=== PATIENT | female | born 1985 | race Caucasian/White ===

== ENCOUNTER → 2017-11-19 16:35 | Outpatient (CLI) | payer OTHER, SELFPAY ==
[2017-11-19 19:38] LABS: HIV - WCH Non-Reactive (Nonreactive)
[2017-11-19 21:23] LABS: Chlamydia Trachomatis by PCR Negative (Negative); Neisserai gonorrhoeae by PCR Negative (Negative); Probe Check PASS; Sample Adequacy Control PASS; Specimen Processing Control PASS
[2017-11-21 03:56] LABS: Rapid Plasmin Reagin (RPR) NONREACTIVE (NONREACTIVE)
[2017-11-21 06:08] LABS: HEPATITIS B SURFACE AG Negative (Negative); Hepatitis A AB, Total Positive (Negative); Hepatitis A IgM Antibody Negative (Negative); Hepatitis B Core AB IgM Negative (Negative); Hepatitis B Core Ab Total Negative (Negative); Hepatitis C Ab 0.1 s/co ratio (0.0-0.9)
[2017-11-22 08:59] LABS: Hep B Surface Antibodies Non Reactive (.)
== END ==
PROVIDERS: Family Provider Family Medicine; PCP Family Medicine; Visit Provider Family Medicine
DX: Z20.2 Contact with and (suspected) exposure to infections with a predominantly sexual mode of transmission (principal)
CPT/HCPCS: 36415; 86592; 86703; 86704; 86705; 86706; 86708; 86709; 86803; 87340; 87491; 87591

== ENCOUNTER → 2018-05-07 07:16 | Outpatient (CLI) | payer OTHER, SELFPAY ==
[2018-05-07 10:22] LABS: hCG Titer Quant., Serum 47 mIU/mL (<9 non-preg)
== END ==
PROVIDERS: Family Provider Family Medicine; PCP Family Medicine; Visit Provider Family Medicine
DX: Z34.90 Encounter for supervision of normal pregnancy, unspecified, unspecified trimester (principal)
CPT/HCPCS: 36415; 84702

== ENCOUNTER → 2018-05-09 06:58 | Outpatient (CLI) | payer OTHER, SELFPAY ==
[2018-05-09 08:33] LABS: hCG Titer Quant., Serum 117 mIU/mL (<9 non-preg)
== END ==
PROVIDERS: Family Provider Family Medicine; PCP Family Medicine; Visit Provider Family Medicine
DX: Z34.90 Encounter for supervision of normal pregnancy, unspecified, unspecified trimester (principal)
CPT/HCPCS: 84702

== ENCOUNTER → 2018-05-11 08:56 | Outpatient (CLI) | payer OTHER, SELFPAY ==
[2018-05-11 10:33] LABS: hCG Titer Quant., Serum 312 mIU/mL (<9 non-preg)
[2018-05-11 10:59] LABS: Progesterone Level 16.38 ng/mL (See Comment)
== END ==
PROVIDERS: Family Provider Family Medicine; PCP Family Medicine; Visit Provider Obstetrics & Gynecology Reproductive Endocrinology
DX: Z32.00 Encounter for pregnancy test, result unknown (principal)
CPT/HCPCS: 36415; 84144; 84702

== ENCOUNTER → 2018-05-19 09:27 | Outpatient (CLI) | payer OTHER, SELFPAY ==
[2018-05-19 10:52] LABS: hCG Titer Quant., Serum 4891 mIU/mL (<9 non-preg)
[2018-05-20 08:43] LABS: Progesterone Level 26.89 ng/mL (See Comment)
== END ==
PROVIDERS: Family Provider Family Medicine; PCP Family Medicine; Visit Provider Obstetrics & Gynecology Reproductive Endocrinology
DX: Z32.01 Encounter for pregnancy test, result positive (principal)
CPT/HCPCS: 36415; 84144; 84702

== ENCOUNTER 2018-05-29 17:43 | Emergency (ER) | payer OTHER, SELFPAY ==
[2018-05-29 17:44] VITALS: BP 120/74; PULSE 86; RESP 16; TEMP 36.5; O2SAT 97; BMI 35.8
--- NOTE | 2018-05-29 18:22 | US_ITS ---
STUDY: FIRST TRIMESTER OBSTETRICAL ULTRASOUND REASON FOR EXAM: Female, 32 years old. and bleeding LMP: April 08, 2018 TECHNIQUE: Transverse and longitudinal imaging of the pelvis was obtained transvaginally using real-time ultrasound. PRIOR STUDY: None. FINDINGS: There is visualization of a single gestational sac in a normal intrauterine position. The mean sac diameter (MSD) measures 18.9 mm, indicating an estimated gestational age (EGA) of 6 weeks, 6 days. The gestational sac shape is within normal limits. There is a visualized yolk sac. The yolk sac measures 4.4 mm. The placenta is non-visualized. There is visualization of an embryonic pole. The crown-rump length (CRL) measures 9.4 mm, indicating an estimated gestational age (EGA) of 7 weeks, 0 days. There is demonstrated cardiac activity with a heart rate of 130 bpm. The estimated gestation age (EGA) by LMP is 7 weeks, 2 days. The estimated date of delivery (GURWINDER) by LMP is January 13, 2019. The estimated gestation age (EGA) by US is 7 weeks, 0 days. The estimated date of delivery (GURWINDER) by US is January 15, 2019. The uterus measures 8.1 x 4.2 x 5.6 cm. There is minimal fluid in the cervical canal. The right ovary measures 4.0 x 2.1 x 1.9 cm. There is no right ovarian cyst. There is no visualized right adnexal mass or complex lesion. The left ovary measures 3.0 x 1.3 x 2.3 cm. There is no left ovarian cyst. There is no visualized left adnexal mass or complex lesion. There is no fluid in the cul de sac. US/Transvaginal w/Preg US IMPRESSION: There is a viable intrauterine with estimated gestational age of 7 weeks 0 days by the current ultrasound. There is minimal fluid in the cervical canal. No other abnormalities are seen. Electronically Signed: Jasmina Fernando MD at 20:00 EDT Tel Direct: [phone], Service support ,
--- NOTE | 2018-05-29 18:23 | ED.VIS.GEN ---
History of Present Illness Chief Complaint: Vag Bld, Preg Informant: Patient Onset: Today Context: Sudden Onset Quality: light Location: vaginal Current Severity: gone Maximum Severity: Mild Worsened by: nothing Relieved by: nothing Associated Symptoms: nausea off and on during 1st trimester. no pain. Narrative: around 7 weeks. 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 She had IVF. She is with a single spontaneous miscarriage at 8 weeks in the prior . She is a female having sex with a female, states she last had intercourse yesterday but without any issues then. She thinks her blood type is O- but cannot remember. Past Medical History - Allergies and Home Meds Allergies/Adverse Reactions: Allergies No Known Allergies Allergy (Verified 05/29/18 17:44) Primary Care Physician: Daniel Dias MD [Primary Care Provider] - Past Medical History: None Smoking Status: Former smoker Review of Systems All systems negative except as indicated General: Reports: - - No near-syncope Cardiovascular: Denies: Chest pain Gastrointestinal: Reports: Nausea. Denies: Abdominal pain Genitourinary: Reports: - - Vaginal bleeding. Denies: Dysuria, Hematuria Musculoskeletal: Denies: Back pain Physical Exam Vital Signs/Narrative: Vital Signs Temp Pulse Resp BP Pulse Ox 05/29/18 17:44 97.7 F L 86 16 120/74 97 General: Well nourished, Well developed Head: Normocephalic, Atraumatic Eyes: Perrl, EOMI ENT: Moist mucous membranes, No rhinorrhea Neck: Supple, Nontender Cardiovascular: Regular rate, Regular rhythm, No murmurs Respiratory: No distress, CTA bilaterally, Chest nontender Abdomen: Soft, Nontender, Nondistended, Normal bowel sounds Back: Nontender. Negative for: CVA tenderness Skin: Normal color, No rash Neurological: Alert, Oriented x3, Cranial nerves II-XII grossly intact, Normal Strength, Normal Sensation Psychological: Normal affect Diagnostic/Tx/Re-eval Impressions Obstetrics Ultrasound 05/29/18 18:22 IMPRESSION: There is a viable intrauterine with estimated gestational age of 7 weeks 0 days by the current ultrasound. There is minimal fluid in the cervical canal. No other abnormalities are seen. 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 Official ultrasound ordered. Ultrasound shows single live IUP with heart rate 130 and gestational age consistent with 7 weeks 0 days. Her blood type is O+, RhoGam not indicated. She is reassured and advised to follow-up closely with her electrical installation inspector. She is comfortable with that plan. ED Disposition - Plan for ED Patient: Disposition: Home or Assisted Living Chief Complaint: Vag Bld, Preg Diagnosis: Threatened Instructions: ED Miscarriage Poss Referrals: Daniel Dias MD [Primary Care Provider] - Complaint Adjuster, your [Other] (Call for appointment within the next 1-2 weeks)
--- NOTE | 2018-05-29 18:27 | ED.DCSUM_ITS ---
History of Present Illness Chief Complaint: Vag Bld, Preg Informant: Patient Onset: Today Context: Sudden Onset Quality: light Location: vaginal Current Severity: gone Maximum Severity: Mild Worsened by: nothing Relieved by: nothing Associated Symptoms: nausea off and on during 1st trimester. no pain. Narrative: around 7 weeks. 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 She had IVF. She is with a single spontaneous miscarriage at 8 weeks in the prior . She is a female having sex with a female, states she last had intercourse yesterday but without any issues then. She thinks her blood type is O- but cannot remember. Past Medical History - Allergies and Home Meds Allergies/Adverse Reactions: Allergies No Known Allergies Allergy (Verified 05/29/18 17:44) Primary Care Physician: Daniel Dias MD [Primary Care Provider] - Past Medical History: None Smoking Status: Former smoker Review of Systems All systems negative except as indicated General: Reports: - - No near-syncope Cardiovascular: Denies: Chest pain Gastrointestinal: Reports: Nausea. Denies: Abdominal pain Genitourinary: Reports: - - Vaginal bleeding. Denies: Dysuria, Hematuria Musculoskeletal: Denies: Back pain Physical Exam Vital Signs/Narrative: Vital Signs Temp Pulse Resp BP Pulse Ox 05/29/18 17:44 97.7 F L 86 16 120/74 97 General: Well nourished, Well developed Head: Normocephalic, Atraumatic Eyes: Perrl, EOMI ENT: Moist mucous membranes, No rhinorrhea Neck: Supple, Nontender Cardiovascular: Regular rate, Regular rhythm, No murmurs Respiratory: No distress, CTA bilaterally, Chest nontender Abdomen: Soft, Nontender, Nondistended, Normal bowel sounds Back: Nontender. Negative for: CVA tenderness Skin: Normal color, No rash Neurological: Alert, Oriented x3, Cranial nerves II-XII grossly intact, Normal Strength, Normal Sensation Psychological: Normal affect Diagnostic/Tx/Re-eval Impressions Obstetrics Ultrasound 05/29/18 18:22 IMPRESSION: There is a viable intrauterine with estimated gestational age of 7 weeks 0 days by the current ultrasound. There is minimal fluid in the cervical canal. No other abnormalities are seen. 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 Official ultrasound ordered. Ultrasound shows single live IUP with heart rate 130 and gestational age consistent with 7 weeks 0 days. Her blood type is O+, RhoGam not indicated. She is reassured and advised to follow-up closely with her telex operator. She is comfortable with that plan. ED Disposition - Plan for ED Patient: Disposition: Home or Assisted Living Chief Complaint: Vag Bld, Preg Diagnosis: Threatened Instructions: ED Miscarriage Poss Referrals: Daniel Dias MD [Primary Care Provider] - Campaign Manager, your [Other] (Call for appointment within the next 1-2 weeks)
[2018-05-29 19:48] LABS: hCG Titer Quant., Serum 32903 mIU/mL (<9 non-preg)
[2018-05-29 19:58] VITALS: BP 119/82; PULSE 73; RESP 16; O2SAT 96
[2018-05-29 20:36] VITALS: BP 125/75; PULSE 62; RESP 14; O2SAT 99
== END 2018-05-29 20:48 | disposition home or self-care (01) ==
PROVIDERS: Emergency Provider Emergency Medicine; Family Provider Family Medicine; PCP Family Medicine
DX: O20.0 Threatened abortion (principal); Z87.891 Personal history of nicotine dependence
CPT/HCPCS: 76817; 84702; 86900; 99282

== ENCOUNTER → 2018-06-04 16:00 | Outpatient (CLI) | payer OTHER, SELFPAY ==
[2018-06-05 18:33] LABS: Chlamydia Trachomatis by PCR Negative (Negative); Neisserai gonorrhoeae by PCR Negative (Negative); Probe Check PASS; Sample Adequacy Control PASS; Specimen Processing Control PASS
[2018-06-10 11:42] LABS: HPV Reflexed? NOT INDICATED
== END ==
PROVIDERS: Family Provider Family Medicine; PCP Family Medicine; Visit Provider Obstetrics & Gynecology
DX: A64 Unspecified sexually transmitted disease (principal); Z12.4 Encounter for screening for malignant neoplasm of cervix
CPT/HCPCS: 87491; 87591; 87624; 88175; G0145

== ENCOUNTER 2018-06-09 06:00 | Day surgery (SDC) | payer OTHER, SELFPAY ==
[2018-06-09] VITALS (8 sets, daily range): BP systolic 113–126; BP diastolic 75–84; PULSE 61–73; RESP 14–16; TEMP 36.5–36.9; O2SAT 97–100; BMI 35.9
[2018-06-09 06:41] LABS: Hematocrit 39.1 % (37-47); Mean Corp Hgb Conc 33.2 g/gl (32-36); Mean Corpuscular Hgb 29.3 pg (27.0-32.0); Mean Corpuscular Volume 88.1 fL (81-99); Mean Platelet Vol. 9.6 fl (6.2-12.0); Platelet Count 272 K/mm3 (150-450); RBC Distribution Width CV 12.8 % (11.6-14.6); RBC Distribution Width SD 41.6 fl (35.1-43.9); Red Blood Count 4.44 M/mm3 (4.2-5.4); White Blood Count 5.8 K/mm3 (4.4-11.0)
--- NOTE | 2018-06-09 06:44 | PCM.HPOB.BLA ---
- Problem List (1) Missed Status: Acute Comment: Suction dilation and curettage scheduled for 06/09/18 History and Physical Date of Admission: 06/09/18 Intake Vital Signs 06/04/18 Height 5 ft 7 in 06/04/18 Weight: 229 lb 4 oz 06/04/18 Body Mass Index (BMI) 35.9 06/04/18 Blood Pressure 118/76 Intake Visit Reasons: NOB - LMP 04/08 Chief Complaint: Pt. had a little bit of brown spotting and then a gush. Saw reproductive Finisher Map And Chart Required: No Accompanied by: Life Partner Is patient in pain?: No Allergies No Known Allergies Allergy (Verified 06/05/18 12:25) Medications NK [NK] 06/05/18 [History Confirmed 06/05/18] Last Menstral Period: 04/08/18 Zika: Zika virus screening: Negative : No PFSH PFSH Surgical History ACL (anterior cruciate ligament) tear (Acute) Family History Father Heart disease Alzheimer disease Mother Heart disease Alzheimer disease Grandmother Breast cancer Heart disease Alzheimer disease Grandfather Alzheimer disease Heart disease Social History current occupational status: employed current occupation: Mental Health Counselor Smoking Status: Former smoker how long ago did patient quit smokin monthes alcohol intake: former details: stopped upon substance use type: does not use diet: gluten free caffeine: Yes Type: coffee Number of servings: 1 what type of physical activity do you participate in: walking, other details: horse back riding seatbelt use: always do you feel safe at home: Yes additional social history: Soo spouse chairman & chief executive officer Foster parents Pregancy History 1 Elective abortions Hx Para Spontaneous abortions Hx # Term Pregnancies Ectopic pregnancies Hx # Pregnancies Multiple births # of living children 0 HPI NOB - LMP 04/08: Details: ENOC ACOSTA is a 32 year old who presents for New OB visit. OB Visit GURWINDER Calculator Estimated Delivery Date 01/13/19 Based on Conception Date 04/22/18 Current WG 8w 4d Number 1 Comments: US done and CRL measuring 8w1d but no heartbeat seen, no color doppler flow. confirmed missed Expected Delivery Route/Plan Initial Weight: Not Recorded Date EGA Weight BP Urine Prot Glucose FHR FuHt Pres Mov CTX Dilation Effaced St Visit Note Provider Comments 08/16/18 8w 1d 229 lb 4 oz 118/76 Menstrual History Last Menstral Period: 04/08/18 Reported LMP: definite Normal amount/duration: Yes On hormonal BC at conception: No Antepartum Record Genetic Screening: Congenital Heart Defect: Other, Neural Tube Defect: Other, Hemoglobinopathy Or Carrier: Other, Cystic Fibrosis: Other, Chromosome Abnormality: Other, Naresh-Sachs: Other, Hemophilia: Other, Intellectual Disability/Autism: Other, Recurrent Loss/Stillbirth: Other, Other Structural Defect: Other, Other Genetic Disease: Other, Maternal Metabolic Disorder: Other Infection History: Live with someone with TB or Exposed to TB: Yes (10 years ago), Patient or Partner has history of Genital Herpes: No, Rash or Viral illness since last mentrual period: No, Prior GBS-Infected child: No, History of STD: No, HIV Infection: No, History of Hepatitis: No, Recent travel outside of : No, Concern for Hep exposure: No, Varicella immune: Yes Medical History Medical History: 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, Infertility, Negative: Diabetes, Hypertension, Heart disease, Auto-immune disorder, Kidney disease/UTI, Neurologic/epilepsy, Psychiatric, Depression/ depression, Hepatitis/liver disease, Varicosities/phlebitis, Thyroid dysfunction, Trauma/domestic violence, History of blood transfusions, D (Rh) Sensitized, Pulmonary (e.g.,TB,Asthma), Seasonal allergies, Drug/latex allergies/reactions, Breast, Operations/hospitalizations, Anesthetic complications, History of abnormal pap, Uterine anomaly/grey, Anti-retroviral treatment, Relevant family history, Other ACOG First Trimester First Trimester: Desire for , Alcohol, Tobacco Cessation, Illicit/Recreational Drug/Substance Use, Intimate Partner Violence, Barriers to care, Unstable Housing, Communication Barriers, Environmental/Work Hazards, Anticipated Course of Care, Nurtrition and weight gain, Use of Any medications, Sexual activity, Exercise, Dental Care, Sauna/Hot tub use, Seat Belt use, Childbirth classes/Hospital facilities, , Travel, Indications for US, Screening for Aneuploidy and Toxoplasmosis Precations ROS Const Denies fever(s), Reports system reviewed and no additional complaints, except as docu, Reports fatigue Eyes Reports system reviewed and no additional complaints, except as docu ENT Reports system reviewed and no additional complaints, except as docu Card Denies chest pain, Denies shortness of breath Resp Reports system reviewed and no additional complaints, except as docu, Denies shortness of breath, Denies cough GI Reports nausea, Denies abdominal pain Reports system reviewed and no additional complaints, except as docu Musc Reports system reviewed and no additional complaints, except as docu Skin/Breast Reports system reviewed and no additional complaints, except as docu Neuro Yes system reviewed and no additional complaints, except as docu Psych Reports system reviewed and no additional complaints, except as docu Endo Reports fatigue, Reports system reviewed and no additional complaints, except as docu Exam Const General: healthy appearing, comfortable, no acute distress Orientation: alert [facility] Head: normal to inspection, atraumatic, normocephalic Ears: external ears normal, hearing grossly normal bilaterally Nose: nares normal, external nose normal Mouth: oral mucosae normal Teeth and gingiva: dentition normal Eyes General: appearance normal, both eyes and all related structures Neck Neck: no lymphadenopathy, supple, normal visual inspection Thyroid: thyroid normal Chest Breast inspection: normal inspection of the breasts, normal inspection of the axillae Breast palpation: normal palpation of the axillae, normal palpation of the breasts Resp Effort & Inspection: normal respiratory effort GI Inspection: normal to inspection Palpation: soft, no hepatosplenomegaly General: bladder normal to palpation External Female Exam: normal external appearance, normal appearance of the urethra Urethra: normal appearance of the urethra Speculum Exam - Vagina: normal appearance of the vagina, normal vaginal discharge Speculum Exam - Cervix: normal appearance of the cervix Bimanual Exam- Vagina & Uterus: bladder normal to palpation, normal bimanual exam, uterus non-tender, other Bimanual Exam- Adnexa, other: adnexae non-tender Skin General: no rashes or lesions noted Neuro Motor: muscle tone normal throughout, no movement abnormalities noted Extrem General: normal to inspection, full ROM Assessment & Plan Problems 1. Missed O02.1 Suction dilation and curettage scheduled for 06/09/18 Plan discussed options and plan d and c. UPDATE- I have seen the patient and performed any clinically relevant updates to the history and physical exam. Margy Stuart MD Orders Orders: CT/NG [facility] BY PCR 06/04/18 A64 PAP I-G w/rfx hrHPV-Aptima 06/04/18 Z12.4 Coding Level of Care Code OB Routine Diagnoses Missed O02.1
[2018-06-09 06:47] LABS: Scan Indicated on CBC? Y/N NO
--- NOTE | 2018-06-09 07:30 | POC_PTH ---
PATIENT: ENOC ACOSTA LOC: [facility] [place] U#:[id number] AGE/SX: 32/F ROOM: RE06/09/[address]: Dr. Margy Stuart MD : 1985 BED: DIS: 06/09/2018 SPEC #: [id number] RECD: 06/09/18 08:01 STATUS: RUPERTO SHUBHAM #: [id number] GLENN: 06/09/18 07:[address]: Margy Stuart DEPT: SURGICAL PATHOLOGY RECD BY: Uriel Mishra ENTERED: 06/09/18 10:41 SP TYPE: PROD CONC OTHR DR: Dr. Daniel Dias MD Tissues: Product of conception, NOS Procedures: Surgery Specimen Level IV HEADER OPERATION: Dilation and curettage, suction PRE-OP DIAGNOSIS: Missed TISSUE SUBMITTED: Products of conception for genetic studies MICROSCOPIC DIAGNOSIS Products of conception: Decidua, gestational endometrium and immature chorionic villi (products of conception). See comment. ANTOINE:alvarado 06/10/18 COMMENT A portion of tissue is submitted for genetic studies. The results will be reported later as an addendum. MICROSCOPIC DESCRIPTION Slides are reviewed. GROSS DESCRIPTION Received fresh labeled with the patient's name and designated products of conception for genetic studies. The specimen consists of multiple irregular fragments of pink-red soft tissue that in aggregate measure 5 x 3 x 0.3 cm. A portion of tissue is submitted for genetic testing. The rest of the specimen is submitted in two cassettes. / ANTOINE:alvarado 06/09/18 TC:5 CPT: 97348 ADDENDUM ADDENDUM ADDENDUM ADDENDUM ADDENDUM ADDENDUM ADDENDUM ADDENDUM ADDENDUM 07/07/2018 11:32 ADDENDUM 07/07/2018 11:32 ADDENDUM 07/07/2018 11:32 ADDENDUM 07/07/2018 11:32 ADDENDUM 07/07/2018 11:32 CYTOGENETICS REPORT FROM [facility] INTERPRETATION AND COMMENTS: Karyotype: 46,XX A normal female karyotype was observed in twenty metaphases analyzed. Please see complete report in e-chart or EMR for further details
--- NOTE | 2018-06-09 07:42 | PCM.OPRPT ---
Problem List (1) Missed Status: Acute Comment: Suction dilation and curettage scheduled for 06/09/18 Report of Operation Date of Procedure: 06/09/18 Pre-Operative Diagnosis: MISSED AB Post-Operative Diagnosis: same Surgery/Procedure Performed:: suction d and c Description of Surgical Findings:: 9 week uterus Type of Anesthesia:: Local MAC Special Medications: none Specimen's removed: poc Drains: none Estimated Blood Loss (mL): 50 Fluids Replaced: crystalloid Description of Procedure: patient placed under mac local anesthesia, prepped draped in normal sterile fashion, anterior lip of cervix grasped, cervix dilated to allow passage of 9 mm suction curret. with nmultiple passes and sharp currettage all products were removed. excellent hemostasis noted and all instruments removed from vagina Grafts/Implants Used: none - Complications none
--- NOTE | 2018-06-09 07:47 | PCM.DC.D&C ---
Discharge Diet: No Restrictions Discharge Activity: Return to Normal Activity, May Shower, May Take a Tub Bath Allergies/Adverse Reactions: Allergies No Known Allergies Allergy (Verified 06/05/18 12:25) Medications to take at Discharge NK [NK] 06/05/18 Primary Care Physician: Daniel Dias MD [Primary Care Provider] - Test Results: Test results from this visit will be discussed in further detail at your follow-up appointment, if applicable. Please Follow Up With: Margy Stuart MD - [phone]
[2018-06-09] MEDS: Ondansetron ODT 4 MG Tablet PO (09:30)
[2018-06-10 20:07] LABS: Dilute Prothrombin Time (dPT) 32.6 sec (0.0-55.0); Dilute Russell Viper Venom 31.4 sec (0.0-47.0); PTT-LA 41.4 sec (0.0-51.9); Thrombin Time 17.8 sec (0.0-23.0); dPT Confirm Ratio 0.89 Ratio (0.00-1.40)
[2018-06-11 08:11] LABS: Interpretation Comment: (.)
== END 2018-06-09 09:39 | disposition home or self-care (01) ==
LOC: SDC 06:00 → AC 06:01
PROVIDERS: Family Provider Family Medicine; PCP Family Medicine; Visit Provider Obstetrics & Gynecology
PROC: (CPT 59820; principal; 2018-06-09 07:15)
DX: O02.1 Missed abortion (principal); Z87.891 Personal history of nicotine dependence
CPT/HCPCS: 01965; 59820; 85027; 86850; 86900; 88305; J7120; J2405

== ENCOUNTER 2018-08-08 22:01 | Emergency (ER) | payer OTHER, SELFPAY ==
[2018-08-08 22:02] VITALS: BP 131/87; PULSE 65; RESP 18; TEMP 36.8; O2SAT 99; BMI 35.2
--- NOTE | 2018-08-08 23:17 | ED.VIS.GEN ---
History of Present Illness Chief Complaint: Vag Bleeding Informant: Patient Onset: Hours - couple Context: Sudden Onset - spontaneous Timing: Continuous Quality: vaginal bleeding w/ clots Location: BRB Current Severity: Mild Maximum Severity: Severe Worsened by: nothing Relieved by: nothing Associated Symptoms: lower abd cramping Narrative: Patient has been undergoing reproductive gynecology to get and had a miscarriage recently, followed by a D&C a week or so ago, there was retention of products that she had a repeat D&C 6 days ago. She had minimal cramping and bleeding the day of, and then was fine until today when she had a lot of bleeding and cramping. This occurred within the last couple hours and she came to the ER. Her fertility doctor is Dr. Knutson, she states that his associate Dr. Dumont performed the D&C 6 days ago. They are with [facility]. Her local doctor is Dr. Stuart. She denies any urinary symptoms, vomiting, lightheadedness/presyncope, although she is a little nauseated. She takes no anticoagulant medications. Past Medical History - Allergies and Home Meds Allergies/Adverse Reactions: Allergies No Known Allergies Allergy (Verified 08/08/18 22:05) Primary Care Physician: Daniel Dias MD [Primary Care Provider] - Past Medical History: None Lives: Spouse/ Significant Other Smoking Status: Former smoker Review of Systems General: Reports: Malaise. Denies: Chills, Fever, Sweats Cardiovascular: Denies: Chest pain, Palpitations Respiratory: Denies: Dyspnea, Cough, Dyspnea on exertion Gastrointestinal: Reports: Abdominal pain, Nausea. Denies: Vomiting, Diarrhea, Melena, Hematochezia Genitourinary: Reports: - - vaginal bleeding. Denies: Dysuria, Hematuria, Frequency Musculoskeletal: Denies: Swelling, Extremity Pain Skin: Denies: Rash, Wounds Neurological: Denies: Headache, Weakness, Numbness Physical Exam Vital Signs/Narrative: Vital Signs Temp Pulse Resp BP Pulse Ox 08/08/18 22:02 98.2 F 65 18 131/87 H 99 Inital Vital Signs reviewed: Yes General: Well nourished, Well developed, - - well-appearing, nad Head: Normocephalic, Atraumatic Eyes: Perrl, EOMI ENT: Moist mucous membranes, No rhinorrhea Neck: Supple, Nontender Cardiovascular: Regular rate, Regular rhythm, No murmurs. Negative for: Tachycardia Respiratory: No distress, CTA bilaterally, Chest nontender Abdomen: Soft, Nontender, Nondistended, Normal bowel sounds : nml ext. small clot at os, removed; w/ fundal pressure, no active bleeding Back: Nontender, Normal Inspection Extremities: Nontender, No edema Skin: Normal color, No rash Neurological: Alert, Oriented x3, Cranial nerves II-XII grossly intact, Normal Strength, Normal Sensation Psychological: Normal affect Diagnostic/Tx/Re-eval - Medical Decision Making Patient presents after ultrasound is no longer available in the emergency department. is negative, she had a fairly unremarkable pelvic exam with no active bleeding and a trace amount of blood with a small clot at the cervical os on pelvic speculum exam. No uterine tenderness. With observation, she said that she had very mild vaginal bleeding and the cramping had resolved. She was offered analgesics early on, but declined. I checked a urine test which is negative. I do not think she needs blood work or hemoglobin/hematocrit since she is doing well and with normal vital signs and no tachycardia. I discussed with the fellow who was transportation superintendent for her [facility] gynecologists, Dr. Jamil, she agrees with close outpatient follow-up after the weekend, return to the ER if worse. Discussed with the patient and her significant other and they are comfortable with this plan. ED Disposition - Plan for ED Patient: Disposition: Home or Assisted Living Chief Complaint: Vag Bleeding Diagnosis: Vaginal bleeding Instructions: ED Bleed Irregular Vaginal Referrals: Doctor,Your [STAFF PHYSICIAN] - 2 Days Additional Instructions: If you have more significant/heavy bleeding before you are able to follow-up or discuss with your photovoltaic technician, return to ER.
--- NOTE | 2018-08-08 23:21 | ED.DCSUM_ITS ---
History of Present Illness Chief Complaint: Vag Bleeding Informant: Patient Onset: Hours - couple Context: Sudden Onset - spontaneous Timing: Continuous Quality: vaginal bleeding w/ clots Location: BRB Current Severity: Mild Maximum Severity: Severe Worsened by: nothing Relieved by: nothing Associated Symptoms: lower abd cramping Narrative: Patient has been undergoing reproductive gynecology to get and had a miscarriage recently, followed by a D&C a week or so ago, there was retention of products that she had a repeat D&C 6 days ago. She had minimal cramping and bleeding the day of, and then was fine until today when she had a lot of bleeding and cramping. This occurred within the last couple hours and she came to the ER. Her fertility doctor is Dr. Knutson, she states that his associate Dr. Dumont performed the D&C 6 days ago. They are with [facility]. Her local doctor is Dr. Stuart. She denies any urinary symptoms, vomiting, lightheadedness/presyncope, although she is a little nauseated. She takes no anticoagulant medications. Past Medical History - Allergies and Home Meds Allergies/Adverse Reactions: Allergies No Known Allergies Allergy (Verified 08/08/18 22:05) Primary Care Physician: Daniel Dias MD [Primary Care Provider] - Past Medical History: None Lives: Spouse/ Significant Other Smoking Status: Former smoker Review of Systems General: Reports: Malaise. Denies: Chills, Fever, Sweats Cardiovascular: Denies: Chest pain, Palpitations Respiratory: Denies: Dyspnea, Cough, Dyspnea on exertion Gastrointestinal: Reports: Abdominal pain, Nausea. Denies: Vomiting, Diarrhea, Melena, Hematochezia Genitourinary: Reports: - - vaginal bleeding. Denies: Dysuria, Hematuria, Frequency Musculoskeletal: Denies: Swelling, Extremity Pain Skin: Denies: Rash, Wounds Neurological: Denies: Headache, Weakness, Numbness Physical Exam Vital Signs/Narrative: Vital Signs Temp Pulse Resp BP Pulse Ox 08/08/18 22:02 98.2 F 65 18 131/87 H 99 Inital Vital Signs reviewed: Yes General: Well nourished, Well developed, - - well-appearing, nad Head: Normocephalic, Atraumatic Eyes: Perrl, EOMI ENT: Moist mucous membranes, No rhinorrhea Neck: Supple, Nontender Cardiovascular: Regular rate, Regular rhythm, No murmurs. Negative for: Tachycardia Respiratory: No distress, CTA bilaterally, Chest nontender Abdomen: Soft, Nontender, Nondistended, Normal bowel sounds : nml ext. small clot at os, removed; w/ fundal pressure, no active bleeding Back: Nontender, Normal Inspection Extremities: Nontender, No edema Skin: Normal color, No rash Neurological: Alert, Oriented x3, Cranial nerves II-XII grossly intact, Normal Strength, Normal Sensation Psychological: Normal affect Diagnostic/Tx/Re-eval - Medical Decision Making Patient presents after ultrasound is no longer available in the emergency department. is negative, she had a fairly unremarkable pelvic exam with no active bleeding and a trace amount of blood with a small clot at the cervical os on pelvic speculum exam. No uterine tenderness. With observation, she said that she had very mild vaginal bleeding and the cramping had resolved. She was offered analgesics early on, but declined. I checked a urine test which is negative. I do not think she needs blood work or hemoglobin/hematocrit since she is doing well and with normal vital signs and no tachycardia. I discussed with the fellow who was microphone boom operator for her [facility] gynecologists, Dr. Jamil, she agrees with close outpatient follow-up after the weekend, return to the ER if worse. Discussed with the patient and her significant other and they are comfortable with this plan. ED Disposition - Plan for ED Patient: Disposition: Home or Assisted Living Chief Complaint: Vag Bleeding Diagnosis: Vaginal bleeding Instructions: ED Bleed Irregular Vaginal Referrals: Doctor,Your [STAFF PHYSICIAN] - 2 Days Additional Instructions: If you have more significant/heavy bleeding before you are able to follow-up or discuss with your security operations engineer, return to ER.
[2018-08-08 23:41] LABS: Internal QC Validated? YES +Cl - CLEAR BKGD; Pregnancy, Urine Negative Negative
[2018-08-09 00:18] VITALS: BP 120/78; PULSE 70; RESP 16; O2SAT 98
[2018-08-09 00:53] VITALS: BP 120/78; PULSE 70; RESP 16; O2SAT 98
== END 2018-08-09 00:53 | disposition home or self-care (01) ==
PROVIDERS: Emergency Provider Emergency Medicine; Family Provider Family Medicine; PCP Family Medicine
DX: N99.820 Postprocedural hemorrhage of a genitourinary system organ or structure following a genitourinary system procedure (principal)
CPT/HCPCS: 81025; 99282

== ENCOUNTER → 2018-11-25 08:33 | Outpatient (CLI) | payer OTHER, SELFPAY | PROVIDERS: Family Provider Family Medicine; PCP Family Medicine | DX: E06.3 Autoimmune thyroiditis (principal); R53.81 Other malaise; R53.83 Other fatigue; R14.0 Abdominal distension (gaseous); R09.82 Postnasal drip; L65.9 Nonscarring hair loss, unspecified; G43.109 Migraine with aura, not intractable, without status migrainosus; R40.0 Somnolence; M62.838 Other muscle spasm; Z91.09 Other allergy status, other than to drugs and biological substances; Z77.120 Contact with and (suspected) exposure to mold (toxic) | CPT/HCPCS: 36415 ==

== ENCOUNTER → 2019-06-16 | Outpatient (CLI) | payer OTHER, SELFPAY ==
[2019-06-16 10:08] LABS: hCG Titer Quant., Serum 141 mIU/mL (1-3)
[2019-06-16 10:12] LABS: Progesterone Level 22.77 ng/mL (See Comment)
== END | disposition home or self-care (01) ==
PROVIDERS: Family Provider Family Medicine; PCP Family Medicine; Referring Provider Obstetrics & Gynecology Reproductive Endocrinology; Visit Provider Obstetrics & Gynecology Reproductive Endocrinology
DX: Z32.00 Encounter for pregnancy test, result unknown (principal)
CPT/HCPCS: 36415; 84144; 84702

== ENCOUNTER → 2019-06-18 | Outpatient (CLI) | payer OTHER, SELFPAY ==
[2019-06-18 09:39] LABS: hCG Titer Quant., Serum 365 mIU/mL (1-3)
== END | disposition home or self-care (01) ==
PROVIDERS: Family Provider Family Medicine; PCP Family Medicine; Referring Provider Obstetrics & Gynecology Reproductive Endocrinology; Visit Provider Obstetrics & Gynecology Reproductive Endocrinology
DX: Z32.01 Encounter for pregnancy test, result positive (principal)
CPT/HCPCS: 36415; 84702

== ENCOUNTER → 2019-06-25 | Outpatient (CLI) | payer OTHER, SELFPAY ==
[2019-06-25 11:43] LABS: hCG Titer Quant., Serum 5028 mIU/mL (1-3)
== END | disposition home or self-care (01) ==
LOC: MTLAB 08:32
PROVIDERS: Family Provider Family Medicine; PCP Family Medicine; Referring Provider Obstetrics & Gynecology Reproductive Endocrinology; Visit Provider Obstetrics & Gynecology Reproductive Endocrinology
DX: Z32.01 Encounter for pregnancy test, result positive (principal)
CPT/HCPCS: 36415; 84702

== ENCOUNTER → 2019-08-02 | Outpatient (CLI) | payer OTHER, SELFPAY ==
[2019-08-02 16:28] VITALS: BMI 35.2
[2019-08-02 20:34] LABS: Chlamydia Trachomatis by PCR Negative (Negative); Neisserai gonorrhoeae by PCR Negative (Negative); Probe Check PASS; Sample Adequacy Control PASS; Specimen Processing Control PASS
== END | disposition home or self-care (01) ==
PROVIDERS: Family Provider Family Medicine; PCP Family Medicine; Referring Provider Obstetrics & Gynecology; Visit Provider Obstetrics & Gynecology
DX: O09.91 Supervision of high risk pregnancy, unspecified, first trimester (principal); Z3A.00 Weeks of gestation of pregnancy not specified
CPT/HCPCS: 87491; 87591

== ENCOUNTER → 2019-08-04 | Outpatient (CLI) | payer OTHER, SELFPAY ==
[2019-08-02 16:28] VITALS: BMI 35.2
[2019-08-04 14:28] LABS: Absolute Lymphocyte Count 1.67 X10^3/uL (0.83-4.51); Absolute Neutrophil Count 4.3 X10^3/uL (2.0-7.7); Basophil# 0.03 X10^3/uL; Basophil% 0.5 % (0-1); Eosinophil# 0.07 X10^3/uL; Eosinophils% 1.1 % (0-5); Hemoglobin 13.6 g/dL (12.0-15.0); Lymphocyte # 1.67 X10^3/ul (4.0); Lymphocyte % 25.4 % (19-41); Mean Corpuscular Hgb 29.6 pg (27.0-32.0); Mean Corpuscular Volume 87.1 fL (81-99); Monocyte# 0.49 X10^3/uL; Monocyte% 7.4 % (0-10); NRBC Flagged by Analyzer 0 % (0-5); Neutrophil % 65.3 % (47-70); Platelet Count 266 K/mm3 (150-450); RBC Distribution Width CV 12.5 % (11.6-14.6); RBC Distribution Width SD 39.9 fl (35.1-43.9); Red Blood Count 4.59 M/mm3 (4.2-5.4); White Blood Count 6.6 K/mm3 (4.4-11.0)
[2019-08-04 15:23] LABS: HIV - WCH Non-Reactive (Nonreactive); Rubella IgG 284.7 IU/mL
[2019-08-05 02:58] LABS: Rapid Plasmin Reagin (RPR) NONREACTIVE (NONREACTIVE)
== END | disposition home or self-care (01) ==
LOC: MTLAB 11:28
PROVIDERS: Family Provider Family Medicine; PCP Family Medicine; Referring Provider Obstetrics & Gynecology; Visit Provider Obstetrics & Gynecology
DX: O09.91 Supervision of high risk pregnancy, unspecified, first trimester (principal); Z3A.00 Weeks of gestation of pregnancy not specified
CPT/HCPCS: 36415; 85025; 86592; 86703; 86762; 86850; 86900; 86901; 87086

== ENCOUNTER → 2019-11-11 14:53 | Outpatient (CLI) | payer OTHER, SELFPAY ==
[2019-11-04 16:29] VITALS: BMI 35.2
--- NOTE | 2019-11-11 15:00 | RAD_ITS ---
HISTORY: FELL YESTERDAY AND ROLLED RIGHT ANKLEMEDIAL ANKLE TENDERNESSEXAM ORDERED WEIGHTBEARING COMPARISON: None FINDINGS: # of images incl. paperwork: 3 XR Ankle Min 3 Views : Some arthritis is present within the tarsal bones No fracture or osseous abnormality. The ankle mortise is intact. Soft tissue swelling is not seen. RAD/Ankle min 3 Views IMPRESSION: Normal right ankle. at 2252 Reported and signed by: Ant Rea MD Electronically Signed: Ant Rae MD at 22:54 EST Tel , Service support ,
== END ==
PROVIDERS: PCP Family Medicine; Referring Provider Family Medicine; Visit Provider Family Medicine
DX: S93.409A Sprain of unspecified ligament of unspecified ankle, initial encounter (principal)
CPT/HCPCS: 73610

== ENCOUNTER → 2019-12-13 | Outpatient (CLI) | payer OTHER, SELFPAY ==
[2019-12-02 16:21] VITALS: BMI 35.2
[2019-12-13 11:01] LABS: Absolute Lymphocyte Count 1.37 X10^3/uL (0.83-4.51); Basophil# 0.01 X10^3/uL; Basophil% 0.2 % (0-1); Eosinophil# 0.14 X10^3/uL; Eosinophils% 2.3 % (0-5); Hematocrit 34.6 % (37-47); Lymphocyte # 1.37 X10^3/ul (4.0); Lymphocyte % 22.9 % (19-41); Mean Corp Hgb Conc 34.7 g/dL (32-36); Mean Corpuscular Hgb 29.8 pg (27.0-32.0); Mean Corpuscular Volume 85.9 fL (81-99); Mean Platelet Vol. 9.7 fl (6.2-12.0); Monocyte# 0.41 X10^3/uL; Monocyte% 6.8 % (0-10); NRBC Flagged by Analyzer 0 % (0-5); Neutrophil # 4.04 X10^3/uL (2.7-7.7); Neutrophil % 67.5 % (47-70); Platelet Count 245 K/mm3 (150-450); RBC Distribution Width CV 12.8 % (11.6-14.6); RBC Distribution Width SD 39.6 fl (35.1-43.9); Red Blood Count 4.03 M/mm3 (4.2-5.4)
[2019-12-13 11:35] LABS: Glucose Challenge Gest 1H 50g 151 mg/dL (70-140)
[2019-12-13 12:24] LABS: Hepatitis B Surface Antigen Non-Reactive (Nonreactive); Hepatitis C Antibody Non-Reactive (Nonreactive)
== END | disposition home or self-care (01) ==
PROVIDERS: PCP Family Medicine; Visit Provider Obstetrics & Gynecology
DX: Z34.90 Encounter for supervision of normal pregnancy, unspecified, unspecified trimester (principal)
CPT/HCPCS: 36415; 82950; 85025; 86803; 87340

== ENCOUNTER → 2019-12-20 | Outpatient (CLI) | payer OTHER, SELFPAY ==
[2019-12-02 16:21] VITALS: BMI 35.2
[2019-12-16 16:14] VITALS: BMI 35.2
[2019-12-20 08:30] LABS: Glucose GTT-Gestation. Fasting 99 mg/dL (<105)
[2019-12-20 08:48] LABS: Glucose GTT-Gestational 1 Hr 209 mg/dL (<190)
[2019-12-20 09:19] LABS: Hepatitis B Surface Antigen Non-Reactive (Nonreactive)
[2019-12-20 11:01] LABS: Glucose GTT-Gestational 3 Hr 104 L (<145)
[2019-12-20 11:01] LABS: Glucose GTT-Gestational 2 Hr 143 mg/dL (<165)
== END | disposition home or self-care (01) ==
LOC: LAB 07:12
PROVIDERS: PCP Family Medicine; Referring Provider Obstetrics & Gynecology; Visit Provider Obstetrics & Gynecology
DX: O99.810 Abnormal glucose complicating pregnancy (principal); O09.90 Supervision of high risk pregnancy, unspecified, unspecified trimester; Z3A.00 Weeks of gestation of pregnancy not specified
CPT/HCPCS: 36415; 82951; 82952; 87340

== ENCOUNTER → 2020-01-28 | Outpatient (CLI) | payer OTHER, SELFPAY ==
[2020-01-28 08:27] VITALS: BMI 35.2
== END | disposition home or self-care (01) ==
LOC: LABSPEC 12:57
PROVIDERS: PCP Family Medicine; Referring Provider Nurse Practitioner Women's Health; Visit Provider Nurse Practitioner Women's Health
DX: O09.90 Supervision of high risk pregnancy, unspecified, unspecified trimester (principal); Z3A.00 Weeks of gestation of pregnancy not specified
CPT/HCPCS: 87081

== ENCOUNTER 2020-02-15 05:25 | Inpatient (IN) | payer OTHER, SELFPAY ==
[2020-01-28 08:27] VITALS: BMI 35.2
[2020-02-11 08:51] VITALS: BMI 35.2
[2020-02-15] VITALS (15 sets, daily range): BP systolic 102–125; BP diastolic 60–86; PULSE 52–85; RESP 10–20; TEMP 36.2–37; O2SAT 93–98; BMI 37.7
[2020-02-15] MEDS: Lactated Ringers 1,000 ML 999 ML IV (06:10)
[2020-02-15 06:25] LABS: Bedside Glucose 110 mg/dL (70-110)
[2020-02-15 06:25] LABS: Absolute Lymphocyte Count 1.81 X10^3/uL (0.83-4.51); Absolute Neutrophil Count 3.6 X10^3/uL (2.0-7.7); Basophil# 0.03 X10^3/uL; Basophil% 0.5 % (0-1); Eosinophil# 0.14 X10^3/uL; Eosinophils% 2.3 % (0-5); Hematocrit 36.8 % (37-47); Hemoglobin 12.4 g/dL (12.0-15.0); Lymphocyte # 1.81 X10^3/ul (4.0); Lymphocyte % 29.5 % (19-41); Mean Corp Hgb Conc 33.7 g/dL (32-36); Mean Corpuscular Hgb 29.5 pg (27.0-32.0); Mean Corpuscular Volume 87.4 fL (81-99); Mean Platelet Vol. 10.6 fl (6.2-12.0); Monocyte# 0.54 X10^3/uL; Monocyte% 8.8 % (0-10); NRBC Flagged by Analyzer 0 % (0-5); Neutrophil # 3.59 X10^3/uL (2.7-7.7); Neutrophil % 58.6 % (47-70); Platelet Count 245 K/mm3 (150-450); RBC Distribution Width CV 13.4 % (11.6-14.6); RBC Distribution Width SD 42.7 fl (35.1-43.9); Red Blood Count 4.21 M/mm3 (4.2-5.4); White Blood Count 6.1 K/mm3 (4.4-11.0)
[2020-02-15] MEDS: Sodium Citrate/Citric Acid 30 ML UDC PO (06:49)
[2020-02-15] MEDS: Cefazolin 2 GM in 0.9% Normal Saline 100 ML IV (06:49)
[2020-02-15] MEDS: Lactated Ringers 1,000 ML 150 ML IV (07:30)
--- NOTE | 2020-02-15 07:49 | HP.PCM_ITS ---
- Problem List (1) Advanced maternal age (AMA) in Status: Acute Comment: nipt low risk plan growth us at 36 weeks (2) Breech presentation of fetus Status: Acute Qualifiers: Comment: primary c/s at 39 weeks(02/14) (3) Gestational diabetes Status: Acute Qualifiers: Comment: home BS monitoring, nutrition consult, plan weekly NSTs until delivery, deliver by 39 weeks (4) Status: Acute Qualifiers: Comment: NIPT-low risk, nl carrier and afp screening. anatomy reviewed (5) resulting from in vitro fertilization Status: Acute Qualifiers: Comment: nl echo (6) Supervision of high risk , antepartum Status: Acute Comment: PRR GURWINDER 02/22/20 girl Adopted children- Mellisa foster children Fabiano García- partner Soo (7) Unicornuate uterus Status: Acute Comment: nl cervical lengths, check growth us at 32 weeks (8) Unicornate uterus Status: Chronic History and Physical Date of Admission: 02/15/20 Intake Vital Signs 02/11/20 Height 5 ft 6 in 02/11/20 Weight: 235 lb 02/11/20 BMI 37.9 02/11/20 BP 118/64 Intake Visit Reasons: 38WK OB / NST Chief Complaint: est ob Annual Giving Manager Required: No Is patient in pain?: No Allergies No Known Allergies Allergy (Verified 02/11/20 08:50) Medications vitamin#30 30 mg iron-10 mg iron-folic acid 1 mg-omg3 capsule cap PO cap 08/02/19 [History Confirmed 02/11/20] blood sugar diagnostic See Rx Instructions .ROUTE .MEDSUPPLY #120 ea 12/31/19 [Rx Confirmed 02/11/20] insulin degludec 100 unit/mL subcutaneous solution 10 unit SC DAILY 02/02/20 [History Confirmed 02/11/20] Last Menstral Period: 06/04/19 Zika: Zika virus screening: Negative : No PFSH PFSH Medical History Unicornate uterus (Chronic) Surgical History ACL (anterior cruciate ligament) tear (Acute) H/O dilation and curettage (Acute) Family History Father Heart disease Alzheimer disease Mother Heart disease Alzheimer disease Grandmother Breast cancer Heart disease Alzheimer disease Grandfather Alzheimer disease Heart disease Social History (Updated 02/11/20 @ 12:[address] Margy Stuart MD) current occupational status: employed current occupation: Mental Health Counselor Smoking Status: Former smoker how long ago did patient quit smokin monthes alcohol intake: former details: stopped upon substance use type: does not use diet: gluten free caffeine: Yes Type: coffee Number of servings: 1 what type of physical activity do you participate in: walking, other details: horse back riding seatbelt use: always do you feel safe at home: Yes additional social history: Soo spouse financial aid officer Foster parents Pregancy History 3 Elective abortions Hx Para 0 Spontaneous abortions Hx # Term Pregnancies Ectopic pregnancies Hx # Pregnancies Multiple births # of living children 0 HPI 38WK OB / NST: Details: ENOC ACOSTA is a 34 year old who presents for routine OB visit. OB Visit GURWINDER Calculator Estimated Delivery Date Method Current WG Current Estimate 02/22/20 Conception 38w 3d Other Estimates 03/11/21 LMP (Certain) 0w 0d Expected Delivery Route/Plan Labor Preferences- labor support person: Soo pain management options preferred: [] cut cord/dad catch: [] : yes PP control planned: [] discussed possible routes of delivery and associated risks: [] special requests: [] Specific Issue/Plans flu vaccine: given tdap vaccine: given rhogam: na LARC form signed: yes movement and labor precautions reviewed. Problem list reviewed and updated with the most current plan of care details and appropriate orders placed. Relevant counseling for the gestational age provided. Continue routine care and follow up unless otherwise noted in visit notes/problem list details Initial Weight: 217 lb Date EGA Weight BP Urine Prot Glucose FHR FuHt Pres Dilation Effaced St Visit Note 06/04/18 06/04/18 229 lb 4 oz (+12 lb 4 oz) 118/76 08/02/19 10w 6d 216 lb (-16 oz) 124/82 160 08/16/19 12w 6d 216 lb (-16 oz) 108/80 160 no vb cramping doing well 09/10/19 16w 3d 217 lb (+0 oz) 109/75 Negative Negative 150 no vb lof good fm 10/07/19 20w 2d 222 lb (+5 lb) 118/62 Negative Negative 150 20 no vb lof good fm no regular ctx 11/04/19 24w 2d 224 lb (+7 lb) 116/78 145 24 SM- no vb lof good fm no regular ctx. 12/02/19 28w 2d 106/71 145 27 SM- no vb lof good fm no regular ctx 12/16/19 30w 2d 227 lb (+10 lb) 106/82 Negative Negative 145 30 SM- no vb lof good fm no regular ctx 12/31/19 32w 3d 226 lb 4 oz (+9 lb 4 oz) Negative Negative 140 32 SM- no vb lof good fm no regular ctx. BS above goal but hasn't met with splash line operator yet, discussed improtance of good glucose control 01/05/20 33w 1d 266 lb (+49 lb) 226 lb (+9 lb) 140 SM- no vb lof good fm 01/13/20 34w 2d 230 lb 8 oz (+13 lb 8 oz) 128/82 Negative Negative 150 35 MH-NO VB, LOF. Good FM. Reactive NST. States glucose elevated last 4 readings. Does have nasal drainage, sore throat. Reviewed diet. Will check glucose next 3 readings and call if still elevated. 01/19/20 35w 1d 230 lb 2 oz (+13 lb 2 oz) 118/80 Negative Negative 150 SM- reviewed BS and recommend starting insulin- to endocrine tomorrow. 01/28/20 36w 3d 232 lb 2 oz (+15 lb 2 oz) 112/80 Negative Negative 155 36 Breech 1 -4 MH-Reactive NST. Saw Dr. Kam last w [place] [employer] [place] and started insulin once daily- unsure of name. 2hr pp glucose wnl but FBS still >100. Will call in with name of insulin. Has phone visit with Dr. Kam today. Will check about sched cs with HILARIA if breech persists. 02/02/20 37w 1d 233 lb (+16 lb) 118/76 Negative Negative 150 Breech MH-reactive NST. States glucose more controlled with insulin. Had phone fu with Dr. Kam today. Good FM. Reactive NST. Still breach, CS scheduled 02/14. No Vb, LOF, CTX. 02/11/20 38w 3d 235 lb (+18 lb) 118/64 Negative Negative 150 Breech SM- no vb lof good fm no regular ctx increasing insulin to improve control, planning LTCS friday Notes Visit Date: 02/11/20 ??No visit notes to display Visit Date: 02/02/20 ??No visit notes to display Visit Date: 01/28/20 ??No visit notes to display Visit Date: 01/19/20 ??No visit notes to display Visit Date: 01/13/20 ??No visit notes to display Visit Date: 01/05/20 ??No visit notes to display Visit Date: 12/31/19 ??No visit notes to display Visit Date: 12/16/19 ??No visit notes to display Visit Date: 12/02/19 ??No visit notes to display Visit Date: 11/04/19 ??No visit notes to display Visit Date: 10/07/19 ??No visit notes to display Visit Date: 09/10/19 ??no vb lof good fm ??Margy Stuart MD on 09/10/19 Visit Date: 08/16/19 ??no vb cramping doing well ??Margy Stuart MD on 08/20/19 Visit Date: 08/02/19 ??No visit notes to display Visit Date: 06/04/18 ??No visit notes to display ACOG First Trimester First Trimester: Desire for , Alcohol, Tobacco Cessation, Illicit/Recreational Drug/Substance Use, Intimate Partner Violence, Barriers to care, Unstable Housing, Communication Barriers, Environmental/Work Hazards, Anticipated Course of Care, Toxoplasmosis Precations, Use of Any medications, Sexual activity, Exercise, Dental Care, Sauna/Hot tub use, Seat Belt use, Childbirth classes/Hospital facilities, , Travel, Indications for US and Screening for Aneuploidy Second Trimester Second Trimester: Signs and Symptoms of Labor, Selecting a care provider, Reproductive Life Planning, Care Planning, Tobacco Cessation, Depression/Anxiety and Intimate Partner Violence Third Trimester Third Trimester: Pain Management Plans, Labor support person(s), Immediate Larc, Movement Monitoring and Infant Feeding Yes ; discussed Trial of Labor after Counseling or discussed Circumcision preference Diagnostics Diagnostics Diagnostics Gest Glucose Tolerance MG/DL 12/20/19 Glucose 1 Hr 50 gm 151 mg/dL (70-140) H 12/13/19 Hgb 12.0 g/dL (12.0-15.0) 12/13/19 Hct 34.6 % (37-47) L 12/13/19 Details: HIV: Urine Culture: Sequential Screen: NIPT Screen: ROS Const Reports system reviewed and no additional complaints, except as docu Card Reports system reviewed and no additional complaints, except as docu Resp Reports system reviewed and no additional complaints, except as docu GI Reports system reviewed and no additional complaints, except as docu, Reports nausea Reports system reviewed and no additional complaints, except as docu Musc Reports system reviewed and no additional complaints, except as docu Exam Const General: cooperative, healthy appearing, comfortable, anxious HENMT Head: normal to inspection Nose: external nose normal Face and sinus: normal facial exam Neck Neck: normal visual inspection, full ROM, no lymphadenopathy Thyroid: thyroid normal Chest Chest palpation & inspection: normal inspection of the chest Resp Effort & Inspection: normal respiratory effort GI Inspection: normal to inspection Palpation: soft, other (gravid uterus) Other: vertex and appropriate size for gestational age Other: Cervical Exam: Extrem General: pedal edema Office Procedures OB NST Non-Stress Test Indications for Monitoring: Yes diabetes Heart Rate Baseline: 150 Heart Rate Variability: moderate Movement: Present Heart Rate Accelerations: Present Decelerations: Absent Contractions: Absent Impression: Yes Reactive Non-Stress Test Results POC Urinalysis 2 Dip (Clinic) Office Urine Glucose Negative Last Edit by Renetta Christopher on 02/11/20 08:5 7 Office Urine Protein Negative Last Edit by Renetta Christopher on 02/11/20 08:5 7 Assessment & Plan Problems 1. Breech presentation, single or unspecified fetus O32.1XX0 2. Unicornuate uterus Q51.4 3. Insulin controlled gestational diabetes mellitus (GDM) in third trimester O24.414 4. 38 weeks gestation of Z3A.38 5. resulting from in vitro fertilization in third trimester O09.813 6. Advanced maternal age (AMA) in 7. Supervision of high risk , antepartum O09.90 plan primary ltcs for malpresentation Orders Orders: OB NST Today [id number] POC Urinalysis 2 Dip (Clinic) Today Coding Level of Care Code OB Routine Diagnoses Breech presentation, single or unspecified fetus O32.1XX0 ??Fetus number: single or unspecified fetus Unicornuate uterus Q51.4 Insulin controlled gestational diabetes mellitus (GDM) in third trimester O24.414 ??Gestational diabetes mellitus control: insulin-controlled ??Trimester: third trimester 38 weeks gestation of Z3A.38 ??Weeks of gestation: 38 weeks resulting from in vitro fertilization in third trimester O09.813 ??Trimester: third trimester Advanced maternal age (AMA) in Supervision of high risk , antepartum O09.90 Additional Codes Non-Stress Test (07736) Essential Procedure Criteria Procedure Essential: Yes Criteria Note: On 01/04/2020 the [facility] of Health ([facility]) Public Order signed by [facility] Director Elizabeth Arboleda M.D., regarding the Management of Non- Essential Surgeries and Procedures for the purpose of preserving Personal Protective Equipment (PPE) and critical hospital capacity and resources within [place] went into effect as of 01/05/2020 at 5:00PM. According to the [facility] Public Order: This action will remain in full force and effect until the State of Emergency declared by the Governor no longer exists or the Director of the [facility] rescinds or modifies this Order.. This [facility] order stated all non-essential or elective surgeries and procedures that utilize PPE should be delayed unless there is undue risk to the current or future health of a patient. After reviewing the aforementioned [facility] Public Order and the patients clinical case, I have determined that the scheduled procedure meets the criteria to go forward. Risk to Patient if Procedure Delayed: Threat of permanent dysfunction of an extremity or organ system
[2020-02-15] MEDS: Oxytocin 30 units/NS 500 ml 30 UNITS/500 ML IV.SOLN 167 UNITS IV (14:00)
--- NOTE | 2020-02-15 14:04 | PCM.OPRPT ---
Problem List (1) Advanced maternal age (AMA) in Status: Acute Comment: nipt low risk plan growth us at 36 weeks (2) Breech presentation of fetus Status: Acute Qualifiers: Comment: primary c/s at 39 weeks(02/14) (3) Gestational diabetes Status: Acute Qualifiers: Comment: home BS monitoring, nutrition consult, plan weekly NSTs until delivery, deliver by 39 weeks (4) Status: Acute Qualifiers: Comment: NIPT-low risk, nl carrier and afp screening. anatomy reviewed (5) resulting from in vitro fertilization Status: Acute Qualifiers: Comment: nl echo (6) Supervision of high risk , antepartum Status: Acute Comment: PRR GURWINDER 02/22/20 girl Adopted children- Mellisa foster children RickyFabiano avina- partner Soo (7) Unicornuate uterus Status: Acute Comment: nl cervical lengths, check growth us at 32 weeks (8) Unicornate uterus Status: Chronic Delivery Classification: Scheduled Final GURWINDER: 02/22/20 Gestational age: 39 Weeks and 0 Days mathematics instructor: Gaby Hicks Type of Anesthesia:: Spinal Special Medications: none Implants Used: none Date of Procedure: 02/15/20 Pre-Operative Diagnosis: breech unicorunuate uterus diabetes Post-Operative Diagnosis: same Indications for : Breech Description of Procedure: The patient is a 34-year-old G4, P0 at 39 weeks with GDM A1 and breech presentation and history of unicornuate uterus presents for [repeat] . Spinal anesthesia was placed without difficulty. Mercer catheter was placed. The patient was placed in the dorsal supine position with leftward tilt. Patient was prepped and draped in the normal sterile fashion. Pfannenstiel skin incision was made with the scalpel and carried through to the underlying layer of fascia with the scalpel. Fascia was nicked in the midline and the incision extended laterally. The rectus bellies were dissected off superiorly and inferiorly with out complication both sharply and bluntly. The peritoneum was entered digitally. The incision was stretched and a low transverse uterine incision was made with the scalpel. The infant's buttocks and then back was delivered atraumatically followed by the anterior and posterior shoulders without complication the rest of the delivered. The cord was clamped and cut and the was handed off to awaiting nurse. The placenta was delivered spontaneously immediately following and was noted to be intact and have a three-vessel cord. The uterus was exteriorized cleared of all clots and debris, and the incision was closed in a double layer closure using #1 Monocryl. The ovaries and fallopian tubes were noted to be within normal limits. The uterus was returned to the maternal abdomen and gutters were cleared of all clots and debris. The peritoneum was closed with 3-0 Monocryl in a running fashion. Gloves were changed prior to fascial closure. Fascia was closed with 0 PDS in a running fashion. Subcutaneous tissue was copiously irrigated and the skin was closed with 3-0 Monocryl in a subcuticular fashion. Mepilex dressing was applied without complication. Patient was taken to recovery in stable condition. Amniotic Membrane Rupture Type: Artificial Amniotic Fluid Description: Clear Placenta Disposition: [facility] Drain: Mercer to straight drain Cord Entanglement: None Esitmated Blood Loss (ml): 600 Infant Gender: Female (1 minute): 9 (5 minute): 9 Delayed cord clamping: Yes Antibiotic Given: Ancef 2 grams IV x1 Pt instructed on risks of surgery: Bleeding, Anesthesia Risks, Infection, Injury to surrounding structure(s) including bowel and bladder Complications: None - Admit VTE Documentation VTE Present on Admission: No VTE Mechan Device Prophylaxis: SCD's Multi Select Codes - Urinary/Genital Urinary/Genital CPT Codes: [address] [facility]
[2020-02-15] MEDS: Methylergonovine 0.2 MG/ML Ampul IM (15:14)
[2020-02-15 15:25] LABS: Bedside Glucose 96 mg/dL (70-110)
[2020-02-15 15:25] LABS: Bedside Glucose 68 mg/dL (70-110)
[2020-02-15] MEDS: Lactated Ringers 1,000 ML 100 ML IV (17:15)
[2020-02-15] MEDS: 0.9% Saline Lock 10 ML Syringe IV (20:03)
[2020-02-15] MEDS: Ketorolac 30 MG/ML Syringe IV (20:03)
[2020-02-16] VITALS (7 sets, daily range): BP systolic 98–124; BP diastolic 55–84; PULSE 60–73; RESP 16–17; TEMP 36.4–36.9; O2SAT 94–99
[2020-02-16] MEDS: Ketorolac 30 MG/ML Syringe IV ×4 (02:24→20:21)
[2020-02-16] MEDS: 0.9% Saline Lock 10 ML Syringe IV ×5 (02:24→20:21)
[2020-02-16 04:41] LABS: Bedside Glucose 76 mg/dL (70-110)
[2020-02-16 04:41] LABS: Hematocrit 31.8 % (37-47); Hemoglobin 10.5 g/dL (12.0-15.0); Mean Corpuscular Hgb 29.5 pg (27.0-32.0); Mean Corpuscular Volume 89.3 fL (81-99); Mean Platelet Vol. 10.3 fl (6.2-12.0); Platelet Count 194 K/mm3 (150-450); RBC Distribution Width CV 13.6 % (11.6-14.6); RBC Distribution Width SD 44.6 fl (35.1-43.9); Red Blood Count 3.56 M/mm3 (4.2-5.4); White Blood Count 5.9 K/mm3 (4.4-11.0)
[2020-02-16] MEDS: Enoxaparin 40 MG/0.4 ML Syringe SC (06:19)
[2020-02-16] MEDS: Senna/Docusate Sodium 1 Tablet PO (08:24)
--- NOTE | 2020-02-16 13:30 | PCM.PN.OB ---
Subjective: doing well no complaints pain controlled no CP SOB N V ambulating well tolerating po lochia moderate, going well - Physical Exam Vitals/I&O's: Vital Signs Temp Pulse Resp BP Pulse Ox 98.4 F 73 16 124/55 H 99 02/16/20 13:04 02/16/20 13:04 02/16/20 13:04 02/16/20 13:04 02/16/20 13:04 Oxygen Delivery Method Room Air Weight: 233 lb 11.04 oz Body Mass Index (BMI) 37.7 Intake and Output for Last 24 Hours 02/14/20 02/15/20 02/16/20 23:59 23:59 23:59 Intake Total 2410 / 2410 1000 / 1000 Output Total 350 / 350 2099 / 2099 Balance 2059 / 2059 -1100 / -1100 General: Alert, Oriented x3 Laboratory Results 02/15/20 14:42: POC Glucose 68 L 02/15/20 15:21: POC Glucose 96 02/16/20 04:31: POC Glucose 76 02/16/20 04:35: WBC 5.9, RBC 3.56 L, Hgb 10.5 L, Hct 31.8 L, MCV 89.3, MCH 29.5, MCHC 33.0, RDW Std Deviation 44.6 H, RDW Coeff of Donna 13.6, Plt Count 194, MPV 10.3 Current Medications Acetaminophen (Tylenol) 1,000 mg PO Q8H PRN PRN Reason: Pain Score 1-3/10 Bisacodyl (Dulcolax) 10 mg RECTAL UD PRN PRN Reason: If no BM Dextrose (D50w Syringe) 0 gm IV X1 PRN; Protocol PRN Reason: Hypoglycemia Diphenhydramine HCl (Benadryl) 25 mg PO Q6H PRN PRN PRN Reason: ITCHING Stop: 02/16/20 16:27 Enoxaparin Sodium (Lovenox) 40 mg SC DAILY POOJA Last Admin: 02/16/20 06:19 Dose: 40 mg Documented by: Glucagon () 1 mg IM .X1 PRN PRN Reason: Hypoglycemia Hydrocortisone (Hytone) 1 applic TOPICAL TID PRN PRN; Protocol PRN Reason: Discomfort Naloxone HCl 4 mg/ Dextrose 504 mls @ 0 mls/hr IV .Q0M PRN; Protocol PRN Reason: Respiratory depression Naloxone HCl 4 mg/ Dextrose 504 mls @ 0 mls/hr IV .Q0M PRN; Protocol PRN Reason: To maintain Resp. rate >10 Ketorolac Tromethamine (Toradol (Bkc)) 30 mg IV Q6H POOJA Stop: 02/17/20 14:01 Last Admin: 02/16/20 08:24 Dose: 30 mg Documented by: Methylergonovine Maleate (Methergine) 0.2 mg IM X1 PRN PRN Reason: Uterine Atony Last Admin: 02/15/20 15:14 Dose: 0.2 mg Documented by: Nalbuphine HCl (Nubain) 5 mg IV Q3H PRN PRN PRN Reason: ITCHING Stop: 02/16/20 16:27 Naloxone HCl (Narcan) 0.02 mg IV Q1M PRN PRN Reason: RR <10 and pt unresponsive Naproxen (Naprosyn) 250 - 500 mg PO Q8H PRN PRN PRN Reason: Pain Score 1-3/10 Ondansetron HCl (Zofran) 4 mg IV Q4H PRN PRN PRN Reason: Nausea Oxycodone HCl (Oxyir) 5 - 10 mg PO Q4H PRN PRN PRN Reason: Pain Score 4-10/10 Prochlorperazine Edisylate (Compazine Iv) 10 mg IV Q6H PRN PRN PRN Reason: NAUSEA Senna/Docusate Sodium (Senokot-S, Radha-Colace) 0 tablet PO DAILY PRN PRN Reason: Constipation Last Admin: 02/16/20 08:24 Dose: 1 tablet Documented by: Simethicone (Mylicon) 80 mg PO PCHS PRN PRN Reason: Indigestion/stomach pain Sodium Chloride () 5 - 15 ml IV UD PRN PRN Reason: SALINE FLUSH Last Admin: 02/16/20 08:24 Dose: 10 ml Documented by: Medical Necessity - Tobacco Use Smoking Status: Former smoker Assessment/Plan All Active Problems (Last Reviewed 02/11/20 @ 08:50 by Renetta Christopher) Breech presentation of fetus (Acute) Gestational diabetes (Acute) (Acute) resulting from in vitro fertilization (Acute) Unicornuate uterus (Acute) Advanced maternal age (AMA) in (Acute) Supervision of high risk , antepartum (Acute) Abnormal glucose affecting (Resolved) Missed (Resolved) s/p LTCS PPD # 1 1. routine post care 2. breast feeding- support given 3. rh positive 4. rubella immune BS nl this am
--- NOTE | 2020-02-16 13:36 | DCINST_ITS ---
Discharge Diet: No Restrictions Discharge Activity: May Not Drive - for 2 weeks, May not drive while taking narcotic pain medications., May Shower, May Take a Tub Bath - in 7 days May resume sexual activity in: 4-6 weeks Lifting Restrictions: 20 pounds Additional Activity Instructions:: Nothing in the vagina for 4-6 weeks. You may return to work/school in 6 weeks. Call your doctor if your incision/area has: Continuous Slow Oozing, Sudden Increased Bleeding, Increased Pain/ Swelling, Increased Redness, Foul Smelling Discharge Call your doctor if you observe: Fever of 101 or Higher, Using more than one pad per hour - for 2 hours Suture Line Care: Avoid Pulling/Pushing, Avoid Pinching/Bending Cleanse incision/area with: Keep Dressing Clean & Dry Additional Instructions: If you experience any of the following, contact your healthcare provider. * Bleeding that soaks a pad every hour for 2 hours * Fever 100.4 or higher * Unrelieved incision or abdominal pain * Swelling, redness, discharge or bleeding from your incision or episiotomy site * Your incision begins to separate * Problems urinating (including inability to urinate or burning while urinating). * Visual changes * Severe headache * Flu-like symptoms * Pain or redness in one of both of your breasts * Pain, warmth, tenderness or swelling in your legs, especially the calf area * Frequent nausea and vomiting * Symptoms of depression or anxiety If you experience any of the following, call 911 or go to the nearest Emergency Room. * Chest pain * Problems breathing * Seizure activity * Partial or complete paralysis of a body part, slurred speech, weakness or drooping of the face, or a sudden inability to walk or hold your balance Allergies/Adverse Reactions: Allergies gluten Allergy (Verified 02/16/20 05:44) Upset Stomach Medications to take at Discharge vitamin#30 30 mg iron-10 mg iron-folic acid 1 mg-omg3 capsule 1 cap PO DAILY cap 08/02/19 insulin degludec 100 unit/mL subcutaneous solution 10 unit SC DAILY 02/02/20 Blood Sugar Diagnostic [Blood Glucose Test Strip] See Rx Instructions .ROUTE .MEDSUPPLY 02/15/20 Vitamin D 02/15/20 Naproxen [Naprosyn] 250 - 500 mg PO Q8H PRN PRN #30 tab 02/16/20 Oxycodone HCl/Acetaminophen [Percocet 5-325] 1 - 2 tablet PO Q6H PRN PRN 7 Days #15 tablet 02/16/20 The following prescriptions were given: Naproxen [Naprosyn] 250 - 500 mg PO Q8H PRN PRN #30 tab PRN Reason: MILD PAIN Transmission Status: Pending to [facility] Oxycodone HCl/Acetaminophen [Percocet 5-325] 1 - 2 tablet PO Q6H PRN PRN 7 Days #15 tablet PRN Reason: Pain Transmission Status: Sent to [facility] Follow-Up: Call to make an appointment with your doctor for an incision check in 1-2 weeks. You will also need a 6 week post- follow up appointment. Test results from this visit will be discussed in further detail at your follow- up appointment, if applicable. Please Follow Up With: Margy Stuart MD - Call to make an appointment for an incision check in 1-2 [phone] When: You will need a post- check in 6 weeks. Primary Care Physician: Daniel Dias MD [Primary Care Provider] -
[2020-02-17 01:30] VITALS: BP 104/59; PULSE 65; RESP 17; TEMP 36.7
[2020-02-17] MEDS: Ketorolac 30 MG/ML Syringe IV ×3 (02:43→14:04)
[2020-02-17] MEDS: 0.9% Saline Lock 10 ML Syringe IV ×2 (02:47→08:27)
--- NOTE | 2020-02-17 09:35 | PN.OBGYN_ITS ---
Subjective: doing well no complaints pain controlled no CP SOB N V ambulating well tolerating po lochia moderate, more difficult today - Physical Exam Vitals/I&O's: Vital Signs Temp Pulse Resp BP Pulse Ox 98.1 F 65 17 104/59 L 99 02/17/20 01:30 02/17/20 01:30 02/17/20 01:30 02/17/20 01:30 02/16/20 13:04 Oxygen Delivery Method Room Air Weight: 233 lb 11.04 oz Body Mass Index (BMI) 37.7 Intake and Output for Last 24 Hours 02/15/20 02/16/20 02/17/20 23:59 23:59 23:59 Intake Total 2410 / 2410 1000 / 1000 Output Total 350 / 350 2099 / 2099 Balance 2059 / 2059 -1100 / -1100 General: Alert, Oriented x3 Current Medications Acetaminophen (Tylenol) 1,000 mg PO Q8H PRN PRN Reason: Pain Score 1-3/10 Bisacodyl (Dulcolax) 10 mg RECTAL UD PRN PRN Reason: If no BM Dextrose (D50w Syringe) 0 gm IV X1 PRN; Protocol PRN Reason: Hypoglycemia Enoxaparin Sodium (Lovenox) 40 mg SC DAILY [facility] Last Admin: 02/16/20 06:19 Dose: 40 mg Documented by: Glucagon () 1 mg IM .X1 PRN PRN Reason: Hypoglycemia Hydrocortisone (Hytone) 1 applic TOPICAL TID PRN PRN; Protocol PRN Reason: Discomfort Naloxone HCl 4 mg/ Dextrose 504 mls @ 0 mls/hr IV .Q0M PRN; Protocol PRN Reason: Respiratory depression Naloxone HCl 4 mg/ Dextrose 504 mls @ 0 mls/hr IV .Q0M PRN; Protocol PRN Reason: To maintain Resp. rate >10 Ketorolac Tromethamine (Toradol (Bkc)) 30 mg IV Q6H [facility] Stop: 02/17/20 14:01 Last Admin: 02/17/20 08:27 Dose: 30 mg Documented by: Methylergonovine Maleate (Methergine) 0.2 mg IM X1 PRN PRN Reason: Uterine Atony Last Admin: 02/15/20 15:14 Dose: 0.2 mg Documented by: Naloxone HCl (Narcan) 0.02 mg IV Q1M PRN PRN Reason: RR <10 and pt unresponsive Naproxen (Naprosyn) 250 - 500 mg PO Q8H PRN PRN PRN Reason: Pain Score 1-3/10 Ondansetron HCl (Zofran) 4 mg IV Q4H PRN PRN PRN Reason: Nausea Oxycodone HCl (Oxyir) 5 - 10 mg PO Q4H PRN PRN PRN Reason: Pain Score 4-10/10 Prochlorperazine Edisylate (Compazine Iv) 10 mg IV Q6H PRN PRN PRN Reason: NAUSEA Senna/Docusate Sodium (Senokot-S, Radha-Colace) 0 tablet PO DAILY PRN PRN Reason: Constipation Last Admin: 02/16/20 08:24 Dose: 1 tablet Documented by: Simethicone (Mylicon) 80 mg PO PCHS PRN PRN Reason: Indigestion/stomach pain Sodium Chloride () 5 - 15 ml IV UD PRN PRN Reason: SALINE FLUSH Last Admin: 02/17/20 08:27 Dose: 10 ml Documented by: Medical Necessity - Tobacco Use Smoking Status: Former smoker Assessment/Plan All Active Problems (Last Reviewed 02/11/20 @ 08:50 by Renetta Christopher) Breech presentation of fetus (Acute) Gestational diabetes (Acute) (Acute) resulting from in vitro fertilization (Acute) Unicornuate uterus (Acute) Advanced maternal age (AMA) in (Acute) Supervision of high risk , antepartum (Acute) Abnormal glucose affecting (Resolved) Missed (Resolved) s/p LTCS PPD # 2 1. routine post care 2. breast feeding- support given 3. rh positive 4. rubella immune BS nl plan 6 week 2 hour gtt test
[2020-02-17 10:05] VITALS: BP 126/77; PULSE 86; RESP 18; TEMP 36.5; O2SAT 97
[2020-02-17] MEDS: Senna/Docusate Sodium 1 Tablet PO (10:42)
[2020-02-17] MEDS: Enoxaparin 40 MG/0.4 ML Syringe SC (10:42)
--- NOTE | 2020-02-17 14:00 | NURSING ---
Dr. Stuart notified of rash surrounding patient's mepilex dressing. Patient can remove dressing as soon as she would like per OB. Hydrocortisone cream recommended. Patient states the rash is not bothering her. She is sensitive to adhesive so rashes are common for her per her report. Instructed to remove dressing as soon as she would like.
[2020-02-17 14:10] VITALS: BP 126/84; PULSE 62; RESP 18; TEMP 36.5; O2SAT 96
[2020-02-17] MEDS: Acetaminophen 500 MG Tablet 1000 MG PO (18:33)
[2020-02-17 20:14] VITALS: BP 131/74; PULSE 82; RESP 16; TEMP 36.7
[2020-02-17] MEDS: Naproxen 250 MG Tablet PO (20:25)
[2020-02-18 02:17] VITALS: BP 137/78; PULSE 60; RESP 6; TEMP 36.4
[2020-02-18] MEDS: Acetaminophen 500 MG Tablet 1000 MG PO (02:19)
[2020-02-18] MEDS: Naproxen 250 MG Tablet PO (06:29)
[2020-02-18 07:35] VITALS: BP 130/85; PULSE 58; RESP 14; TEMP 36.3
--- NOTE | 2020-02-18 07:49 | PCM.PN.OB ---
Subjective: doing well no complaints pain controlled no CP SOB N V ambulating well tolerating po lochia moderate, going well - Physical Exam Vitals/I&O's: Vital Signs Temp Pulse Resp BP Pulse Ox 97.6 F L 60 6 L 137/78 H 96 02/18/20 02:17 02/18/20 02:17 02/18/20 02:17 02/18/20 02:17 02/17/20 14:10 Oxygen Delivery Method Room Air Weight: 233 lb 11.04 oz Body Mass Index (BMI) 37.7 Intake and Output for Last 24 Hours 02/16/20 02/17/20 02/18/20 23:59 23:59 23:59 Intake Total 1000 / 1000 Output Total 2099 / 2099 Balance -1100 / -1100 General: Alert, Oriented x3 Current Medications Acetaminophen (Tylenol) 1,000 mg PO Q8H PRN PRN Reason: Pain Score 1-3/10 Last Admin: 02/18/20 02:19 Dose: 1,000 mg Documented by: Bisacodyl (Dulcolax) 10 mg RECTAL UD PRN PRN Reason: If no BM Dextrose (D50w Syringe) 0 gm IV X1 PRN; Protocol PRN Reason: Hypoglycemia Enoxaparin Sodium (Lovenox) 40 mg SC DAILY [facility] Last Admin: 02/17/20 10:42 Dose: 40 mg Documented by: Glucagon () 1 mg IM .X1 PRN PRN Reason: Hypoglycemia Hydrocortisone (Hytone) 1 applic TOPICAL TID PRN PRN; Protocol PRN Reason: Discomfort Naloxone HCl 4 mg/ Dextrose 504 mls @ 0 mls/hr IV .Q0M PRN; Protocol PRN Reason: Respiratory depression Naloxone HCl 4 mg/ Dextrose 504 mls @ 0 mls/hr IV .Q0M PRN; Protocol PRN Reason: To maintain Resp. rate >10 Methylergonovine Maleate (Methergine) 0.2 mg IM X1 PRN PRN Reason: Uterine Atony Last Admin: 02/15/20 15:14 Dose: 0.2 mg Documented by: Naloxone HCl (Narcan) 0.02 mg IV Q1M PRN PRN Reason: RR <10 and pt unresponsive Naproxen (Naprosyn) 250 - 500 mg PO Q8H PRN PRN PRN Reason: Pain Score 1-3/10 Last Admin: 02/18/20 06:29 Dose: 500 mg Documented by: Ondansetron HCl (Zofran) 4 mg IV Q4H PRN PRN PRN Reason: Nausea Oxycodone HCl (Oxyir) 5 - 10 mg PO Q4H PRN PRN PRN Reason: Pain Score 4-10/10 Prochlorperazine Edisylate (Compazine Iv) 10 mg IV Q6H PRN PRN PRN Reason: NAUSEA Senna/Docusate Sodium (Senokot-S, Radha-Colace) 0 tablet PO DAILY PRN PRN Reason: Constipation Last Admin: 02/17/20 10:42 Dose: 1 tablet Documented by: Simethicone (Mylicon) 80 mg PO PCHS PRN PRN Reason: Indigestion/stomach pain Sodium Chloride () 5 - 15 ml IV UD PRN PRN Reason: SALINE FLUSH Last Admin: 02/17/20 08:27 Dose: 10 ml Documented by: Medical Necessity - Tobacco Use Smoking Status: Former smoker Assessment/Plan All Active Problems (Last Reviewed 02/11/20 @ 08:50 by Renetta Christopher) Breech presentation of fetus (Acute) Gestational diabetes (Acute) (Acute) resulting from in vitro fertilization (Acute) Unicornuate uterus (Acute) Advanced maternal age (AMA) in (Acute) Supervision of high risk , antepartum (Acute) Abnormal glucose affecting (Resolved) Missed (Resolved) s/p LTCS PPD # 3 1. routine post care 2. breast feeding- support given 3. rh positive 4. rubella immune BS nl plan 6 week 2 hour gtt test
[2020-02-18] MEDS: Enoxaparin 40 MG/0.4 ML Syringe SC (09:44)
[2020-02-18] MEDS: Senna/Docusate Sodium 1 Tablet PO (09:44)
[2020-02-18 14:35] VITALS: BP 130/81; PULSE 69; RESP 18; TEMP 36.3
--- NOTE | 2020-02-22 10:19 | NURSING ---
Follow up call done, patient doing well and feels good with plan at this time with another follow up appt tomorrow at dr office.
== END 2020-02-18 13:25 | disposition home or self-care (01) | DRG 788 ==
PROVIDERS: Obstetrics & Gynecology; Admitting Provider Obstetrics & Gynecology; PCP Family Medicine; Referring Provider Obstetrics & Gynecology; Visit Provider Obstetrics & Gynecology
PROC: 10D00Z1 Extraction of Products of Conception, Low, Open Approach (ICD-10-PCS; CPT 59514; principal; 2020-02-15 07:15)
DX: O32.1XX0 Maternal care for breech presentation, not applicable or unspecified (principal); O24.424 Gestational diabetes mellitus in childbirth, insulin controlled; O34.03 Maternal care for unspecified congenital malformation of uterus, third trimester; Q51.4 Unicornate uterus; Z3A.39 39 weeks gestation of pregnancy; Z37.0 Single live birth
CPT/HCPCS: 82962; 85025; 85027; 86850; 86900; 86901; 99218; 99251; J7120; A4216; G0378; G0463

== ENCOUNTER → 2020-06-22 | Outpatient (CLI) | payer OTHER, SELFPAY ==
[2020-03-31 13:23] VITALS: BMI 37.7
== END | disposition home or self-care (01) ==
PROVIDERS: PCP Family Medicine; Referring Provider Family Medicine; Visit Provider Family Medicine
DX: Z20.828 Contact with and (suspected) exposure to other viral communicable diseases (principal)
CPT/HCPCS: 87635; U0003

== ENCOUNTER → 2020-09-19 | Outpatient (CLI) | payer OTHER, SELFPAY ==
[2020-03-31 13:23] VITALS: BMI 37.7
== END | disposition home or self-care (01) ==
LOC: LABSPEC 13:39
PROVIDERS: PCP Family Medicine; Referring Provider Family Medicine; Visit Provider Registered Nurse
DX: U07.1 COVID-19 (principal)
CPT/HCPCS: 87633; 87635; U0003

== ENCOUNTER → 2021-09-17 | Outpatient (CLI) | payer OTHER, SELFPAY | END | disposition home or self-care (01) | PROVIDERS: PCP Family Medicine; Visit Provider Family Medicine | DX: Z20.822 Contact with and (suspected) exposure to COVID-19 (principal) | CPT/HCPCS: 87635; U0005; U0003 ==

== ENCOUNTER 2021-10-26 11:23 | Outpatient (CLI) | payer OTHER, SELFPAY ==
--- NOTE | 2021-10-26 11:30 | RAD_ITS ---
STUDY: X-RAY CHEST REASON FOR EXAM: Female, 35 years old. COVID . Shortness of breath. TECHNIQUE: COMPARISON: None. FINDINGS: The lungs are clear and expanded. Scattered granulomas. There is no demonstrated pleural abnormality. Normal size heart. Normal mediastinum and mirna. Normal visualized pulmonary arteries. Normal visualized aortic arch and descending thoracic aorta. Normal visualized thoracic spine. Normal visualized ribs, clavicles, and shoulders. There is no demonstrated abnormality of the visualized soft tissue structures of the upper abdomen. RAD/Chest PA and Lateral IMPRESSION: Normal x-ray examination of the chest. Electronically Signed: Umesh Mercado MD at 14:21 EST , Service support ,
[2021-10-26 15:41] LABS: Hematocrit 43.3 % (37-47); Hemoglobin 14.1 g/dL (12.0-15.0); Mean Corp Hgb Conc 32.6 g/dL (32-36); Mean Corpuscular Hgb 29.3 pg (27.0-32.0); Mean Corpuscular Volume 89.8 fL (81-99); Mean Platelet Vol. 9.8 fl (6.2-12.0); Platelet Count 368 K/mm3 (150-450); RBC Distribution Width SD 42.7 fl (35.1-43.9); Red Blood Count 4.82 M/mm3 (4.2-5.4); White Blood Count 9.5 K/mm3 (4.4-11.0)
[2021-10-26 16:06] LABS: Anion Gap 8 (5-15); BUN 14 mg/dL (7-18); BUN/Creat Ratio 20.1 RATIO (10-20); Calcium,Total 8.8 mg/dL (8.5-10.1); Chloride 106 mmol/L (98-107); EST Glomerular Filtration Rate 101 mL/min (>60); Est Glom Filt Rate - Afr Amer 122 mL/min (>60); Glucose 70 mg/dL (74-106); Potassium 3.8 mmol/L (3.5-5.1); Sodium Level 140 mmol/L (136-145)
== END 2021-10-26 23:59 | disposition short-term general hospital (02) ==
LOC: MTLAB 11:28
PROVIDERS: PCP Family Medicine; Referring Provider Family Medicine; Visit Provider Family Medicine
DX: U07.1 COVID-19 (principal)
CPT/HCPCS: 36415; 71046; 80048; 85027

== ENCOUNTER 2021-12-20 15:23 | Emergency (ER) | payer OTHER, SELFPAY ==
[2021-12-20 15:24] VITALS: BP 148/91; PULSE 76; RESP 15; TEMP 36.2; O2SAT 98; BMI 38.7
--- NOTE | 2021-12-20 15:40 | ED.RN ---
PTS CAME IN AND STATED HER IS HERE FOR HEART ISSUES. EXPLAINED THAT THE PT WAS TRIAGED AND WE WILL GET HER BACK SOON WE CAN. UNFORTUNATELY THERE ARE NO ROOMS AVAILABLE AT THIS TIME. PTS THEN LOOKED AT THE PT AND TOLD HER THEY WERE LEAVING. PT AMBULATED FROM THE ER WITH S.O.
== END 2021-12-20 15:40 | disposition left against medical advice (07) ==
LOC: ED 15:46
PROVIDERS: PCP Family Medicine
DX: R51.9 Headache, unspecified (principal); Z53.21 Procedure and treatment not carried out due to patient leaving prior to being seen by health care provider

== ENCOUNTER → 2023-02-28 | Outpatient (CLI) | payer OTHER, SELFPAY ==
[2023-02-28 11:08] LABS: hCG Titer Quant., Serum 92 mIU/mL (1-3)
== END | disposition home or self-care (01) ==
PROVIDERS: PCP Family Medicine
DX: Z32.00 Encounter for pregnancy test, result unknown (principal)
CPT/HCPCS: 36415; 84702

== ENCOUNTER → 2023-03-04 | Outpatient (CLI) | payer OTHER, SELFPAY ==
[2023-03-04 12:14] LABS: hCG Titer Quant., Serum 543 mIU/mL (1-3)
== END | disposition home or self-care (01) ==
LOC: MTLAB 10:46
PROVIDERS: PCP Family Medicine
DX: Z32.01 Encounter for pregnancy test, result positive (principal)
CPT/HCPCS: 36415; 84702

== ENCOUNTER → 2023-03-11 | Outpatient (CLI) | payer OTHER, SELFPAY ==
[2023-03-11 11:00] LABS: hCG Titer Quant., Serum 4954 mIU/mL (1-3)
== END | disposition home or self-care (01) ==
LOC: MTLAB 09:31
PROVIDERS: PCP Family Medicine
DX: Z32.01 Encounter for pregnancy test, result positive (principal)
CPT/HCPCS: 36415; 84702

== ENCOUNTER → 2023-03-27 | Outpatient (CLI) | payer OTHER, SELFPAY ==
[2023-03-28 21:08] LABS: Chlamydia By Nucleic Acid AMP Negative (Negative); Gonococcus By Nucleic Acid AMP Negative (Negative)
[2023-03-31 15:08] LABS: HPV APTIMA, High Risk Negative (Negative)
== END | disposition home or self-care (01) ==
LOC: LABSPEC 10:56
PROVIDERS: PCP Family Medicine; Referring Provider Obstetrics & Gynecology; Visit Provider Obstetrics & Gynecology
DX: Z34.90 Encounter for supervision of normal pregnancy, unspecified, unspecified trimester (principal)
CPT/HCPCS: 87086; 87088; 87491; 87591; 87624; 88175; G0145

== ENCOUNTER → 2023-04-25 | Outpatient (CLI) | payer OTHER, SELFPAY ==
[2023-04-25 10:29] LABS: Absolute Lymphocyte Count 1.32 X10^3/uL (0.83-4.51); Absolute Neutrophil Count 3.5 X10^3/uL (2.0-7.7); Basophil# 0.03 X10^3/uL; Basophil% 0.5 % (0-1); Eosinophil# 0.33 X10^3/uL; Eosinophils% 5.9 % (0-5); Hematocrit 40.8 % (37-47); Hemoglobin 13.7 g/dL (12.0-15.0); Lymphocyte # 1.32 X10^3/ul (0.83-4.51); Lymphocyte % 23.5 % (19-41); Mean Corp Hgb Conc 33.6 g/dL (32-36); Mean Corpuscular Hgb 29.4 pg (27.0-32.0); Mean Corpuscular Volume 87.6 fL (81-99); Mean Platelet Vol. 9.4 fl (6.2-12.0); Monocyte# 0.42 X10^3/uL; Monocyte% 7.5 % (0-10); NRBC Flagged by Analyzer 0 % (0-5); Neutrophil # 3.51 X10^3/uL (2.7-7.7); Neutrophil % 62.4 % (47-70); Platelet Count 298 K/mm3 (150-450); RBC Distribution Width SD 41.1 fl (35.1-43.9); Red Blood Count 4.66 M/mm3 (4.2-5.4); White Blood Count 5.6 K/mm3 (4.4-11.0)
[2023-04-25 10:57] LABS: NATERA MAILED SPECIMEN
[2023-04-25 10:58] LABS: T4 Free Direct 0.95 ng/dL (0.76-1.46); Thyroid Stim Hormone (TSH) 0.62 uIU/mL (0.358-3.74)
[2023-04-25 11:31] LABS: HIV - WCH Non-Reactive (Nonreactive); Hepatitis B Surface Antigen Non-Reactive (Nonreactive); Hepatitis C Antibody Non-Reactive (Nonreactive); Rubella IgG Reactive (Nonreactive); Syphilis Antibodies Non-reactive
[2023-04-26 04:07] LABS: Thyroid Peroxidase AB 297 IU/mL (0-34)
== END | disposition home or self-care (01) ==
LOC: LAB 09:52
PROVIDERS: PCP Family Medicine; Referring Provider Obstetrics & Gynecology; Visit Provider Obstetrics & Gynecology
DX: O99.281 Endocrine, nutritional and metabolic diseases complicating pregnancy, first trimester (principal); E06.3 Autoimmune thyroiditis; O09.91 Supervision of high risk pregnancy, unspecified, first trimester; Z3A.08 8 weeks gestation of pregnancy
CPT/HCPCS: 36415; 84439; 84443; 85025; 86376; 86703; 86762; 86780; 86803; 86850; 86900; 86901; 87340

== ENCOUNTER → 2023-05-01 | Outpatient (CLI) | payer OTHER, SELFPAY ==
[2023-05-01 12:13] LABS: Glucose Challenge Gest 1H 50g 144 mg/dL (70-140)
== END | disposition home or self-care (01) ==
PROVIDERS: PCP Family Medicine; Referring Provider Obstetrics & Gynecology; Visit Provider Obstetrics & Gynecology
DX: O99.281 Endocrine, nutritional and metabolic diseases complicating pregnancy, first trimester (principal); E06.3 Autoimmune thyroiditis; O09.91 Supervision of high risk pregnancy, unspecified, first trimester; Z3A.08 8 weeks gestation of pregnancy
CPT/HCPCS: 36415; 82950

== ENCOUNTER → 2023-05-12 | Outpatient (CLI) | payer OTHER, SELFPAY ==
[2023-05-12 08:07] LABS: Glucose GTT-Gestation. Fasting 106 mg/dL (<105)
[2023-05-12 09:15] LABS: Glucose GTT-Gestational 1 Hr 193 mg/dL (<190)
[2023-05-12 10:46] LABS: Glucose GTT-Gestational 2 Hr 128 mg/dL (<165)
[2023-05-12 11:53] LABS: Glucose GTT-Gestational 3 Hr 92 L (<145)
== END | disposition home or self-care (01) ==
LOC: LAB 07:10
PROVIDERS: PCP Family Medicine; Visit Provider Obstetrics & Gynecology
DX: Z13.1 Encounter for screening for diabetes mellitus (principal)
CPT/HCPCS: 36415; 82951; 82952

== ENCOUNTER 2023-09-09 20:30 | Outpatient (CLI) | payer OTHER, SELFPAY ==
[2023-09-09] VITALS (12 sets, daily range): BP systolic 126–130; BP diastolic 67–81; PULSE 86–95; TEMP 36.6; O2SAT 95–97; BMI 40.8
[2023-09-09 21:24] LABS: Protein, Urine (Random) 12.2 mg/dL (<11.9); Protein:Creat Ratio 124 mg/g CRE (0-200)
[2023-09-09] MEDS: 0.9% Saline Lock 10 ML Syringe IV (21:27)
[2023-09-09 21:40] LABS: Hematocrit 35.2 % (37-47); Mean Corp Hgb Conc 34.1 g/dL (32-36); Mean Corpuscular Hgb 29.4 pg (27.0-32.0); Mean Corpuscular Volume 86.3 fL (81-99); Mean Platelet Vol. 9.8 fl (6.2-12.0); Platelet Count 245 K/mm3 (150-450); RBC Distribution Width CV 13.2 % (11.6-14.6); RBC Distribution Width SD 41.2 fl (35.1-43.9); Red Blood Count 4.08 M/mm3 (4.2-5.4); White Blood Count 6.5 K/mm3 (4.4-11.0)
[2023-09-09 21:46] LABS: AST(SGOT) 13 U/L (15-37); Alanine Aminotransfer ALT/SGPT 21 U/L (13-56); EST Glomerular Filtration Rate 146 mL/min (>60); Est Glom Filt Rate - Afr Amer 176 mL/min (>60); Estimated Creatinine Clearance 142.81 ml/min; Uric Acid 4.6 mg/dL (2.6-6.0)
--- NOTE | 2023-09-09 22:03 | OB.TRI.PN ---
Progress Notes Date of Service: 09/09/23 Progress Note: Patient presents for triage evaluation secondary to elevated bp at home FHT: 130 Moderate variability reactive no decelerations category I tracing-appropriate for gestational age [place]: no Contractions Assessment and plan: Reactive NST, normal pre e labs, serial bps reassuring, reassuring maternal and status patient discharged to home to follow-up in office. See problem list details for additional plan information. Laboratory Studies: Laboratory Tests 09/09/23 09/09/23 Range/Units 21:22 20:40 WBC 6.5 (4.4-11.0) K/mm3 RBC 4.08 L (4.2-5.4) M/mm3 Hgb 12.0 (12.0-15.0) g/dL Hct 35.2 L (37-47) % MCV 86.3 (81-99) fL MCH 29.4 (27.0-32.0) pg MCHC 34.1 (32-36) g/dL RDW Std Deviation 41.2 (35.1-43.9) fl RDW Coeff of Donna 13.2 (11.6-14.6) % Plt Count 245 (150-450) K/mm3 MPV 9.8 (6.2-12.0) fl Creatinine 0.50 L (0.55-1.02) mg/dL Estim Creat Clear Calc 142.81 ml/min Est GFR (MDRD) Af Amer 176 (>60) mL/min Est GFR (MDRD) Non-Af 146 (>60) mL/min Uric Acid 4.6 (2.6-6.0) mg/dL AST 13 L (15-37) U/L ALT 21 (13-56) U/L U Random Total Protein 12.2 H (<11.9) mg/dL Urine Creatinine 98.70 (NO RANGE EST.) mg/dL Protein/Creatinin Ratio 124 (0-200) mg/g CRE Charges/Coding Multi Select Codes Urinary/Genital Urinary/Genital CPT Codes: 80383-92 non-stress test Interp Assessment & Plan (1) Elevated BP without diagnosis of hypertension: COMMENT: 09/09-elevated bp at home. normal pre e labs, serial bps, and reassuring NST. D/C home (2) Preexisting diabetes complicating , antepartum: COMMENT: MFM consult for management, recommend switching to NPH and novolog. Growth US Q4wk and then twice weekly testing at 32 wk. (3) Baljit's disease: COMMENT: check tsh, free t4, tpo Ab q trimester (4) Hx of gestational diabetes in prior , currently : COMMENT: 3 HR GTT failed encouraged healthy weight gain (5) Hx of section: COMMENT: plan RLTCS with SM (6) Advanced maternal age (AMA) in : COMMENT: genetic counseling provided, nipt done, third trimester screening (7) resulting from in vitro fertilization: COMMENT: nl echo (8) Supervision of high-risk : COMMENT: PRR , GURWINDER 11/06/23 boy GURMEET Torres Adopted children -Néstor, Demetra Mario Soo (9) : QUALIFIERS: Weeks of gestation: 31 weeks Qualified Code(s): Z3A.31 - 31 weeks gestation of COMMENT: NIPT low risk, declined afp and carrier testing. anatomy nl. 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
== END 2023-09-09 22:10 | disposition home or self-care (01) ==
LOC: WPOUT 20:41 → WP 20:43
PROVIDERS: PCP Family Medicine; Referring Provider Advanced Practice Midwife; Visit Provider Advanced Practice Midwife
DX: O99.891 Other specified diseases and conditions complicating pregnancy (principal); Z79.4 Long term (current) use of insulin; O24.313 Unspecified pre-existing diabetes mellitus in pregnancy, third trimester; O99.283 Endocrine, nutritional and metabolic diseases complicating pregnancy, third trimester; R03.0 Elevated blood-pressure reading, without diagnosis of hypertension; E06.3 Autoimmune thyroiditis; Z3A.31 31 weeks gestation of pregnancy
CPT/HCPCS: 36415; 59025; 59050; 82565; 82570; 84156; 84450; 84460; 84550; 85027; 99221; A4216; G0378

== ENCOUNTER → 2023-09-12 | Outpatient (CLI) | payer OTHER, SELFPAY ==
--- NOTE | 2023-09-12 15:00 | US_ITS ---
STUDY: OBSTETRICAL ULTRASOUND - BIOPHYSICAL PROFILE REASON FOR EXAM: Female, 37 years old well being LMP: PRIOR ULTRASOUND: None. TECHNIQUE: Transabdominal TECHNICAL QUALITY: Adequate. FINDINGS: There is a single intrauterine fetus. The fetus is in a cephalic presentation. There is demonstrated cardiac activity with a heart rate of 143 bpm. There is a normal amniotic fluid volume. The largest amniotic fluid pocket measures 5.8 cm. The amniotic fluid index (JUANITA) is 10.9 cm. The placenta is posterior in location and is not low lying. There are Grade 1 placental changes. Age by LMP: 32 weeks, 1 days. GURWINDER by LMP: 11/06/2023. BIOPHYSICAL PROFILE: Breathing Movements (FBM): 2 Gross Body Movements (GBM): 2 Tone (FT): 2 Amniotic Fluid Volume (AFV): 2 TOTAL SCORE: 8 / 8 US/Biophysical Prof W/O Non Stres IMPRESSION: Normal biophysical profile of 05/27. Electronically Signed: Eyal Quintanilla MD at 22:18 EST ,
== END | disposition home or self-care (01) ==
LOC: OPUS 15:00
PROVIDERS: PCP Family Medicine; Visit Provider Obstetrics & Gynecology
DX: O24.319 Unspecified pre-existing diabetes mellitus in pregnancy, unspecified trimester (principal); Z3A.00 Weeks of gestation of pregnancy not specified
CPT/HCPCS: 76819

== ENCOUNTER → 2023-09-15 | Outpatient (CLI) | payer OTHER, SELFPAY | END | disposition home or self-care (01) | LOC: LABSPEC 20:00 → LAB 20:14 | PROVIDERS: PCP Family Medicine; Referring Provider Nurse Practitioner; Visit Provider Nurse Practitioner | DX: O12.13 Gestational proteinuria, third trimester (principal); Z3A.00 Weeks of gestation of pregnancy not specified | CPT/HCPCS: 87086 ==

== ENCOUNTER 2023-09-19 15:00 | Outpatient (CLI) | payer OTHER, SELFPAY ==
[2023-09-19 15:20] VITALS: BP 126/78; PULSE 91
[2023-09-19 15:39] VITALS: BP 133/67; PULSE 88
[2023-09-19] MEDS: Betamethasone/Betamethasone 30 MG/5 ML Vial 12 MG IM (15:40)
[2023-09-19 15:45] LABS: Hematocrit 34.9 % (37-47); Hemoglobin 11.7 g/dL (12.0-15.0); Mean Corp Hgb Conc 33.5 g/dL (32-36); Mean Corpuscular Volume 86.4 fL (81-99); Mean Platelet Vol. 9.9 fl (6.2-12.0); Platelet Count 231 K/mm3 (150-450); RBC Distribution Width CV 13.3 % (11.6-14.6); RBC Distribution Width SD 41.7 fl (35.1-43.9); Red Blood Count 4.04 M/mm3 (4.2-5.4)
[2023-09-19 15:54] VITALS: BP 123/66; PULSE 88
[2023-09-19 16:07] LABS: Protein, Urine (Random) 18.6 mg/dL (<11.9); Protein:Creat Ratio 224 mg/g CRE (0-200)
[2023-09-19 16:08] LABS: AST(SGOT) 15 U/L (15-37); Alanine Aminotransfer ALT/SGPT 25 U/L (13-56); EST Glomerular Filtration Rate 146 mL/min (>60); Est Glom Filt Rate - Afr Amer 177 mL/min (>60); Uric Acid 5.1 mg/dL (2.6-6.0)
[2023-09-19 16:10] VITALS: BP 127/60; PULSE 88
[2023-09-19 16:24] VITALS: BP 131/63; PULSE 85
--- NOTE | 2023-10-02 07:10 | OB.TRI.PN ---
Progress Notes Date of Service: 09/19/23 Progress Note: Patient presents for triage evaluation secondary to elevated bps in office FHT: 140 Moderate variability reactive no decelerations category I tracing [place]: no regular Contractions Assessment and plan: elevated bps, steroids given, discussed with mfm, insulin adjustments made Reactive NST, reassuring maternal and status patient discharged to home to follow-up as scheudled. See problem list details for additional plan information. Laboratory Studies: Laboratory Tests 09/19/23 Range/Units 15:25 WBC 6.0 (4.4-11.0) K/mm3 RBC 4.04 L (4.2-5.4) M/mm3 Hgb 11.7 L (12.0-15.0) g/dL Hct 34.9 L (37-47) % MCV 86.4 (81-99) fL MCH 29.0 (27.0-32.0) pg MCHC 33.5 (32-36) g/dL RDW Std Deviation 41.7 (35.1-43.9) fl RDW Coeff of Donna 13.3 (11.6-14.6) % Plt Count 231 (150-450) K/mm3 MPV 9.9 (6.2-12.0) fl Creatinine 0.50 L (0.55-1.02) mg/dL Est GFR (MDRD) Af Amer 177 (>60) mL/min Est GFR (MDRD) Non-Af 146 (>60) mL/min Uric Acid 5.1 (2.6-6.0) mg/dL AST 15 (15-37) U/L ALT 25 (13-56) U/L U Random Total Protein 18.6 H (<11.9) mg/dL Urine Creatinine 83.20 (NO RANGE EST.) mg/dL Protein/Creatinin Ratio 224 H (0-200) mg/g CRE Charges/Coding Procedures Urinary/Genital 52xxx-59xxx: 42583-77 non-stress test Interp
== END 2023-09-19 16:35 | disposition home or self-care (01) ==
LOC: WPOUT 15:09 → WP 15:10
PROVIDERS: Obstetrics & Gynecology; PCP Family Medicine; Referring Provider Registered Nurse; Visit Provider Registered Nurse
DX: O16.9 Unspecified maternal hypertension, unspecified trimester (principal); Z3A.00 Weeks of gestation of pregnancy not specified
CPT/HCPCS: 59025; 59050; 82565; 82570; 84156; 84450; 84460; 84550; 85027; 96372; J0702

== ENCOUNTER 2023-09-20 13:15 | Outpatient (CLI) | payer OTHER, SELFPAY ==
[2023-09-20] MEDS: Betamethasone/Betamethasone 30 MG/5 ML Vial 12 MG IM (13:46)
--- NOTE | 2023-10-07 12:31 | OB.TRI.PN ---
Progress Notes Date of Service: 09/20/23 Progress Note: celestone shot given for prematuirty elevated bps
== END 2023-09-20 13:50 | disposition home or self-care (01) ==
LOC: WPOUT 13:24 → WP 13:25
PROVIDERS: PCP Family Medicine; Visit Provider Registered Nurse
DX: O99.891 Other specified diseases and conditions complicating pregnancy (principal); R03.0 Elevated blood-pressure reading, without diagnosis of hypertension; Z3A.00 Weeks of gestation of pregnancy not specified
CPT/HCPCS: J0702

== ENCOUNTER 2023-10-08 18:14 | Outpatient (CLI) | payer OTHER, SELFPAY ==
[2023-10-08 18:32] VITALS: BP 126/74; PULSE 86; TEMP 37.1
[2023-10-08 18:38] VITALS: BMI 40.4
[2023-10-08 18:40] VITALS: PULSE 88; O2SAT 96
[2023-10-08 18:48] VITALS: BP 131/78; PULSE 82
[2023-10-08 18:59] LABS: Hematocrit 37.5 % (37-47); Hemoglobin 12.6 g/dL (12.0-15.0); Mean Corp Hgb Conc 33.6 g/dL (32-36); Mean Corpuscular Hgb 28.9 pg (27.0-32.0); Mean Platelet Vol. 10.8 fl (6.2-12.0); Platelet Count 241 K/mm3 (150-450); RBC Distribution Width CV 13.4 % (11.6-14.6); RBC Distribution Width SD 41.7 fl (35.1-43.9); Red Blood Count 4.36 M/mm3 (4.2-5.4); White Blood Count 6.7 K/mm3 (4.4-11.0)
[2023-10-08 19:03] VITALS: BP 131/75; PULSE 82
[2023-10-08 19:08] LABS: Protein, Urine (Random) 13.4 mg/dL (<11.9); Protein:Creat Ratio 142 mg/g CRE (0-200)
[2023-10-08 19:13] LABS: AST(SGOT) 14 U/L (15-37); Alanine Aminotransfer ALT/SGPT 20 U/L (13-56); Creatinine, Serum 0.46 mg/dL (0.55-1.02); EST Glomerular Filtration Rate 162 mL/min (>60); Est Glom Filt Rate - Afr Amer 197 mL/min (>60); Estimated Creatinine Clearance 155.23 ml/min; Uric Acid 5.6 mg/dL (2.6-6.0)
[2023-10-08 19:17] VITALS: BP 128/75; PULSE 91
[2023-10-08 19:32] VITALS: BP 129/76; PULSE 87
--- NOTE | 2023-10-08 21:02 | OB.TRI.NOTE ---
HPI - General General Date of Admission: 10/08/23 HPI Narrative ENOC ACOSTA, is a 37 y/o @ 35 weeks 6 days who presents to L&D with the complaint of ongoing floaters and bright spots in vision. She states that it has been happening since the very beginning of but was worried she could be developing pre-eclampsia due to a home bp of 130's/70's-80's. She denies headache, epigastric pain, or rapid weight gain this week.She states thta her was more worried than she was and wanted her to be seen. Maternal Data Information GURWINDER Calculator Estimated Delivery Date Method Current WG Current Estimate 11/06/23 Manual 36w 0d PFSH [facility] Medical History Advanced maternal age (AMA) in Breech presentation of fetus Gestational diabetes resulting from in vitro fertilization Supervision of high risk , antepartum Unicornuate uterus Home Medications docosahexaenoic acid 200 mg capsule ( DHA) 1 mg PO DAILY 03/20/23 [History Last Taken 10/08/23 08:00 1 mg] magnesium glycinate-mag oxide mg PO 03/20/23 [History Last Taken 10/07/23 22:00 240 mg] blood sugar diagnostic (Blood Glucose Test strips) #120 ea 05/13/23 [Rx Last Taken Unknown] lancets #200 ea 05/13/23 [Rx Last Taken Unknown] pen needle, diabetic 32 gauge x 5/32 (BD Ultra-Fine Vanda Pen Needle) #150 ea 06/05/23 [Rx Last Taken Unknown] blood-glucose meter #1 ea 06/24/23 [Rx Last Taken Unknown] blood-glucose sensor (FreeStyle Lalo 3 Sensor device) #1 ea 07/10/23 [Rx Last Taken Unknown] insulin NPH isoph U-100 human 100 unit/mL (3 mL) subcutaneous pen (Novolin N FlexPen) 38 unit subcut QPM 10/03/23 [History Last Taken 10/08/23 08:00 12 unit] insulin lispro 100 unit/mL subcutaneous pen (Admelog SoloStar U-100 Insulin lispro) 1 sliding scale dose subcut USEASDIRECTD 10/03/23 [History Last Taken 10/08/23 17:00 18] Allergy/AdvReac Type Severity Reaction Status Date / Time gluten Allergy Upset Verified 10/08/23 18:32 Stomach Family History Father Heart disease Alzheimer disease Mother Heart disease Alzheimer disease Grandmother Breast cancer Heart disease Alzheimer disease Grandfather Alzheimer disease Heart disease Surgical History ACL (anterior cruciate ligament) tear H/O dilation and curettage Social History adopted: No household members: spouse and children number of children: 4 current occupational status: employed current occupation: Mental Health Counselor pets and animals: Yes (not managing litterbox ) pets and animals: cat(s), dog(s) and turtle(s) history of recent travel: No Smoking Status: Former smoker how long ago did patient quit smokin alcohol intake: former details: stopped upon substance use type: does not use diet: gluten free well-balanced diet: daily or most days caffeine: Yes Type: coffee Number of servings: 2 eating out: rarely or never during the past year weight has: increased > 10 lbs what type of physical activity do you participate in: other details: crossfit frequency: 1-2 times per week duration: 45-60 minutes/day veto/lutheran: Other seatbelt use: always do you feel safe at home: Yes additional social history: Soo spouse Home [employer]od[employer] Foster parents History 4 Elective abortions Hx Para 1 Spontaneous abortions Hx # Term Pregnancies Ectopic pregnancies Hx # Pregnancies Multiple births # of living children 1 Past Pregnancies Del. Date Name GA/Weeks Outcome Route Bth Weight Infant Gen Labor Lgth Anesthesia Del Locatn Provider FOB 02/15/20 Melissa 39 live - full term Female spinal [facility] Delivery Date: 02/15/20 Last Updated by: Lennie Harris [facility] BREECH PRESENTATION, UNICORUNUATE UTERUS, GDM Visit Details Expected Delivery Route/Plan RLTCS with SM Plans Covid status: discussed Flu vaccine: [] Tdap vaccine: [] Rhogam: [] LARC form signed: [] Problem list reviewed and updated with the most current plan of care details and appropriate orders placed. Relevant counseling for the gestational age provided. Continue routine care and follow up unless otherwise noted in visit notes/problem list details OB Flowsheet Initial Weight: Not Recorded Date <del>?</del> EGA Weight BP Urine Prot <del>?</del> Glucose FHR FuHt Pres Dilation <del>?</del> Effaced St Visit Note 03/27/23 <del>?</del> 8w 0d 248 lb 2 oz 117/76 <del>?</del> 160 <del>?</del> SM- CRL 1.7cm cons with LMP 04/07/23 <del>?</del> 9w 4d 250 lb 6 oz 126/87 Negative <del>?</del> Negative 175 <del>?</del> SM- SM- no vb cramping 04/18/23 <del>?</del> 11w 1d 245 lb 6 oz 125/77 Negative <del>?</del> Negative 160 <del>?</del> SM- no vb crmaping, NIPT today 05/16/23 <del>?</del> 15w 1d 242 lb 8 oz 134/82 Negative <del>?</del> Negative <del>?</del> JV- heart tones visible on bedside ultrasound. anatomy scan ordered. will need 24 week echo. 06/13/23 <del>?</del> 19w 1d 242 lb 6 oz 117/76 <del>?</del> 150 <del>?</del> SM- no vb lof good fm no regular ctx 07/10/23 <del>?</del> 23w 0d 245 lb 118/78 Negative <del>?</del> Negative 145 23 <del>?</del> SM- no vb lof good fm no regular ctx, discussed switching to MFM for GDM control, recommend NPH and novolog instead of tresiba. ordered thyroid testing 08/08/23 <del>?</del> 27w 1d 252 lb 2 oz 112/78 Negative <del>?</del> Negative 137 28 <del>?</del> JV- no lof, vaginal bleeding, or dec fm. followed by mfm for gdm and doing well. CL on 08/19/23 08/22/23 <del>?</del> 29w 1d 253 lb 117/80 Negative <del>?</del> Negative 140 29 <del>?</del> JV- on 22 of novolin, fastings now controlled. being monitored by mfm but will see endo soon. plan testing twice weekly at 32 weeks. 09/05/23 <del>?</del> 31w 1d 252 lb 118/20 Negative <del>?</del> Negative 140 31 <del>?</del> SM- no vb lof good fm no regular ctx 09/19/23 <del>?</del> 33w 1d 251 lb 152/86 Negative <del>?</del> Negative <del>?</del> SM- NST stopped due to elevated bp will evaluate on l and d and give celestone 09/26/23 <del>?</del> 34w 1d 251 lb 4 oz 124/72 Negative <del>?</del> Negative 130 <del>?</del> SM- s/p steroids, BS reviewed. no vb lof good fm no regular ctx 10/03/23 <del>?</del> 35w 1d 255 lb 2 oz 117/76 Negative <del>?</del> Negative 120 <del>?</del> JV- still going up on insulin slightly. fastings right at 95. no lof, vaginal bleeding, or dec fm. wants clear drape. message left on l&d to order them. ROS Constitutional Constitutional: Reports systems reviewed and no addt'l complaints, except as documented Gastrointestinal Gastrointestinal: Denies bloating, constipation, cramping, diarrhea, nausea or vomiting Genitourinary Genitourinary: Reports other Details: Denies vaginal odor, vaginal bleeding, or vaginal discharge ; Denies difficulty urinating or flank pain NST FHR Rate Baby A Baseline: 115-120 Variability:: Moderate Accelerations:: 15 x 15 Decelerations:: None NST Reactive:: Yes FHR Category:: Category I Uterine Activity:: some contractions, palpating mild and patient does not notice them Assessment & Plan (1) Preexisting diabetes complicating , antepartum: COMMENT: MFM consult for management, recommend switching to NPH and novolog. Growth US Q4wk and then twice weekly testing at 32 wk. growth 10/07- 3447g 89% AC 98% (2) Baljit's disease: COMMENT: check tsh, free t4, tpo Ab q trimester (3) Hx of gestational diabetes in prior , currently : COMMENT: 3 HR GTT failed encouraged healthy weight gain (4) Hx of section: COMMENT: plan RLTCS with SM (5) Advanced maternal age (AMA) in : COMMENT: genetic counseling provided, nipt done, third trimester screening (6) resulting from in vitro fertilization: COMMENT: nl echo (7) Supervision of high-risk : COMMENT: PRR , GURWINDER 11/06/23 boy PC Melisas Adopted children -Néstor, Fabiano, Demetra Soo (8) : QUALIFIERS: Weeks of gestation: 34 weeks Qualified Code(s): Z3A.34 - 34 weeks gestation of COMMENT: NIPT low risk, declined afp and carrier testing. anatomy nl. (9) Unicornate uterus: COMMENT: previous breech presentation, plan RLTCS. (10) Visual changes: COMMENT: pih labs normal, blood pressures normal. ongoing all of , recommend ophthalmology examination as this may be related to diabetes and not pre-eclampsia. Charges/Coding Multi Select Codes Urinary/Genital Urinary/Genital CPT Codes: 21413-72 non-stress test Interp
--- NOTE | 2023-10-08 21:02 | OB.TRI.HP_ITS ---
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 Supervision of high risk , antepartum Unicornuate uterus Home Medications docosahexaenoic acid 200 mg capsule ( DHA) 1 mg PO DAILY 03/20/23 [History Last Taken 10/08/23 08:00 1 mg] magnesium glycinate-mag oxide mg PO 03/20/23 [History Last Taken 10/07/23 22:00 240 mg] blood sugar diagnostic (Blood Glucose Test strips) #120 ea 05/13/23 [Rx Last Taken Unknown] lancets #200 ea 05/13/23 [Rx Last Taken Unknown] pen needle, diabetic 32 gauge x 5/32 (BD Ultra-Fine Vanda Pen Needle) #150 ea 06/05/23 [Rx Last Taken Unknown] blood-glucose meter #1 ea 06/24/23 [Rx Last Taken Unknown] blood-glucose sensor (FreeStyle Lalo 3 Sensor device) #1 ea 07/10/23 [Rx Last Taken Unknown] insulin NPH isoph U-100 human 100 unit/mL (3 mL) subcutaneous pen (Novolin N FlexPen) 38 unit subcut QPM 10/03/23 [History Last Taken 10/08/23 08:00 12 unit] insulin lispro 100 unit/mL subcutaneous pen (Admelog SoloStar U-100 Insulin lispro) 1 sliding scale dose subcut USEASDIRECTD 10/03/23 [History Last Taken 10/08/23 17:00 18] Allergy/AdvReac Type Severity Reaction Status Date / Time gluten Allergy Upset Verified 10/08/23 18:32 Stomach Family History Father Heart disease Alzheimer disease Mother Heart disease Alzheimer disease Grandmother Breast cancer Heart disease Alzheimer disease Grandfather Alzheimer disease Heart disease Surgical History ACL (anterior cruciate ligament) tear H/O dilation and curettage Social History adopted: No household members: spouse and children number of children: 4 current occupational status: employed current occupation: Mental Health Counselor pets and animals: Yes (not managing litterbox ) pets and animals: cat(s), dog(s) and turtle(s) history of recent travel: No Smoking Status: Former smoker how long ago did patient quit smokin alcohol intake: former details: stopped upon substance use type: does not use diet: gluten free well-balanced diet: daily or most days caffeine: Yes Type: coffee Number of servings: 2 eating out: rarely or never during the past year weight has: increased > 10 lbs what type of physical activity do you participate in: other details: crossfit frequency: 1-2 times per week duration: 45-60 minutes/day veto/druze: Other seatbelt use: always do you feel safe at home: Yes additional social history: Soo spouse Home Remodeling Foster parents History 4 Elective abortions Hx Para 1 Spontaneous abortions Hx # Term Pregnancies Ectopic pregnancies Hx # Pregnancies Multiple births # of living children 1 Past Pregnancies Del. Date Name GA/Weeks Outcome Route Bth Weight Gen Labor Lgth Anesthesia Del [facility] Provider FOB 02/15/20 Melissa 39 live - full term Female spinal [facility] Delivery Date: 02/15/20 Last Updated by: Lennie Harris LTCS BREECH PRESENTATION, UNICORUNUATE UTERUS, GDM Visit Details Expected Delivery Route/Plan RLTCS with SM Plans Covid status: discussed Flu vaccine: [] Tdap vaccine: [] Rhogam: [] LARC form signed: [] Problem list reviewed and updated with the most current plan of care details and appropriate orders placed. Relevant counseling for the gestational age provided. Continue routine care and follow up unless otherwise noted in visit notes/problem list details OB Flowsheet Initial Weight: Not Recorded Date -?-?-?-?-?-?-?-?-?-?-?-?- EGA Weight BP Urine Prot -?-?-?-?-?-?-?-?-?-?-?-?- Glucose FHR FuHt Pres Dilation -?-?-?-?-?-?-?-?-?-?-?-?- Effaced St Visit Note 03/27/23 -?-?-?-?-?-?-?-?-?-?-?-?- 8w 0d 248 lb 2 oz 117/76 -?-?-?-?-?-?-?-?-?-?-?-?- 160 -?-?-?-?-?-?-?-?-?-?-?-?- SM- CRL 1.7cm co ns with LMP 04/07/23 -?-?-?-?-?-?-?-?-?-?-?-?- 9w 4d 250 lb 6 oz 126/87 Nega tive -?-?-?-?-?-?-?-?-?-?-?-?- Negative 175 -?-?-?-?-?-?-?-?-?-?-?-?- SM- SM- no vb cramping 04/18/23 -?-?-?-?-?-?-?-?-?-?-?-?- 11w 1d 245 lb 6 oz 125/77 Nega tive -?-?-?-?-?-?-?-?-?-?-?-?- Negative 160 -?-?-?-?-?-?-?-?-?-?-?-?- SM- no vb crmapi ng, NIPT today 05/16/23 -?-?-?-?-?-?-?-?-?-?-?-?- 15w 1d 242 lb 8 oz 134/82 Nega tive -?-?-?-?-?-?-?-?-?-?-?-?- Negative -?-?-?-?-?-?-?-?-?-?-?-?- JV- heart tones visible on bedside ultrasound. anatomy scan ordered. will need 24 week echo. 06/13/23 -?-?-?-?-?-?-?-?-?-?-?-?- 19w 1d 242 lb 6 oz 117/76 -?-?-?-?-?-?-?-?-?-?-?-?- 150 -?-?-?-?-?-?-?-?-?-?-?-?- SM- no vb lof go od fm no regular ctx 07/10/23 -?-?-?-?-?-?-?-?-?-?-?-?- 23w 0d 245 lb 118/78 Negative -?-?-?-?-?-?-?-?-?-?-?-?- Negative -?-?-?-?-?-?-?-?-?-?-?-?- SM- no vb lof go od fm no regular ctx, discussed switching to MFM for GDM control, recommend NPH and novolog instead of tresiba. ordered thyroid testing 08/08/23 -?-?-?-?-?-?-?-?-?-?-?-?- 27w 1d 252 lb 2 oz 112/78 Nega tive -?-?-?-?-?-?-?-?-?-?-?-?- Negative 137 28 -?-?-?-?-?-?-?-?-?-?-?-?- JV- no lof, vagi nal bleeding, or dec fm. followed by mfm for gdm and doing well. CL on 08/19/23 08/22/23 -?-?-?-?-?-?-?-?-?-?-?-?- 29w 1d 253 lb 117/80 Negative -?-?-?-?-?-?-?-?-?-?-?-?- Negative 140 29 -?-?-?-?-?-?-?-?-?-?-?-?- JV- on Aug brian, fastings now controlled. being monitored by mfm but will see endo soon. plan testing twice weekly at 32 weeks. 09/05/23 -?-?-?-?-?-?-?-?-?-?-?-?- 31w 1d 252 lb 118/20 Negative -?-?-?-?-?-?-?-?-?-?-?-?- Negative 140 31 -?-?-?-?-?-?-?-?-?-?-?-?- SM- no vb lof go od fm no regular ctx 09/19/23 -?-?-?-?-?-?-?-?-?-?-?-?- 33w 1d 251 lb 152/86 Negative -?-?-?-?-?-?-?-?-?-?-?-?- Negative -?-?-?-?-?-?-?-?-?-?-?-?- SM- NST stopped due to elevated bp will evaluate on l and d and give celestone 09/26/23 -?-?-?-?-?-?-?-?-?-?-?-?- 34w 1d 251 lb 4 oz 124/72 Nega tive -?-?-?-?-?-?-?-?-?-?-?-?- Negative 130 -?-?-?-?--?-?-?-?-?-?-?-?- SM- s/p steroids , BS reviewed. no vb lof good fm no regular ctx 10/03/23 -?-?-?-?-?-?-?-?-?-?-?-?- 35w 1d 255 lb 2 oz 117/76 Nega tive -?-?-?-?-?-?-?-?-?-?-?-?- Negative 120 -?-?-?-?-?-?-?-?-?-?-?-?- JV- still going up on insulin slightly. fastings right at 95. no lof, vaginal bleeding, or dec fm. wants clear drape. message left on l&d to order them.
== END 2023-10-08 19:55 | disposition home or self-care (01) ==
LOC: WPOUT 18:17 → WP 18:17
PROVIDERS: PCP Family Medicine; Referring Provider Obstetrics & Gynecology; Visit Provider Obstetrics & Gynecology
DX: O24.313 Unspecified pre-existing diabetes mellitus in pregnancy, third trimester (principal); Z79.4 Long term (current) use of insulin; O99.283 Endocrine, nutritional and metabolic diseases complicating pregnancy, third trimester; O34.03 Maternal care for unspecified congenital malformation of uterus, third trimester; O99.891 Other specified diseases and conditions complicating pregnancy; E06.3 Autoimmune thyroiditis; H53.9 Unspecified visual disturbance; Q51.4 Unicornate uterus; Z3A.35 35 weeks gestation of pregnancy; Z87.891 Personal history of nicotine dependence
CPT/HCPCS: 36415; 59025; 59050; 82565; 82570; 84156; 84450; 84460; 84550; 85027; 99221; G0378

== ENCOUNTER → 2023-10-10 | Outpatient (CLI) | payer OTHER, SELFPAY ==
--- NOTE | 2023-10-14 11:53 | HP.PCM.OB_ITS ---
HPI - General HPI Narrative ENOC ACOSTA, is a 37 y/o @ 36 weeks 5 days who presents to L&D from [facility] due to oligohydramnios. pt states that she has been wearing a pad because she leaks when she coughs for a few days at least. Her last JUANITA was 11 and it was late last week. She is scheduled for a repeat section. Plan is to p erform rom+ now and proceed with regardless due to oligohydramnios. 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 Medications docosahexaenoic acid 200 mg capsule ( DHA) 1 mg PO DAILY 03/20/23 [History Last Taken 10/08/23 08:00 1 mg] magnesium glycinate-mag oxide mg PO 03/20/23 [History Last Taken 10/07/23 22:00 240 mg] blood sugar diagnostic (Blood Glucose Test strips) #120 ea 05/13/23 [Rx Last Taken Unknown] lancets #200 ea 05/13/23 [Rx Last Taken Unknown] pen needle, diabetic 32 gauge x 5/32 (BD Ultra-Fine Vanda Pen Needle) #150 ea 06/05/23 [Rx Last Taken Unknown] blood-glucose meter #1 ea 06/24/23 [Rx Last Taken Unknown] blood-glucose sensor (FreeStyle Lalo 3 Sensor device) #1 ea 07/10/23 [Rx Last Taken Unknown] insulin NPH isoph U-100 human 100 unit/mL (3 mL) subcutaneous pen (Novolin N FlexPen) 38 unit subcut QPM 10/03/23 [History Last Taken 10/08/23 08:00 12 unit] insulin lispro 100 unit/mL subcutaneous pen (Admelog SoloStar U-100 Insulin lispro) 1 sliding scale dose subcut USEASDIRECTD 10/03/23 [History Last Taken 10/08/23 17:00 18] Allergy/AdvReac Type Severity Reaction Status Date / Time gluten Allergy Upset Verified 10/10/23 14:55 Stomach Family History Father Heart disease Alzheimer disease Mother Heart disease Alzheimer disease Grandmother Breast cancer Heart disease Alzheimer disease Grandfather Alzheimer disease Heart disease Surgical History ACL (anterior cruciate ligament) tear H/O dilation and curettage Social History adopted: No household members: spouse and children number of children: 4 current occupational status: employed current occupation: Mental Health Counselor pets and animals: Yes (not managing litterbox ) pets and animals: cat(s), dog(s) and turtle(s) history of recent travel: No Smoking Status: Former smoker how long ago did patient quit smokin alcohol intake: former details: stopped upon substance use type: does not use diet: gluten free well-balanced diet: daily or most days caffeine: Yes Type: coffee Number of servings: 2 eating out: rarely or never during the past year weight has: increased > 10 lbs what type of physical activity do you participate in: other details: crossfit frequency: 1-2 times per week duration: 45-60 minutes/day veto/mormon: Other seatbelt use: always do you feel safe at home: Yes additional social history: Soo spouse Home Remodeling Foster parents History 4 Elective abortions Hx Para 1 Spontaneous abortions Hx # Term Pregnancies Ectopic pregnancies Hx # Pregnancies Multiple births # of living children 1 Past Pregnancies Del. Date Name GA/Weeks Outcome Route Bth Weight Infant Gen Labor Lgth Anesthesia Del [facility] Provider FOB 02/15/20 Melissa 39 live - full term Female spinal [facility] Delivery Date: 02/15/20 Last Updated by: Lennie Harris LTCS BREECH PRESENTATION, UNICORUNUATE UTERUS, GDM Visit Details Expected Delivery Route/Plan RLTCS with SM Plans Covid status: discussed Flu vaccine: [] Tdap vaccine: [] Rhogam: [] LARC form signed: [] Problem list reviewed and updated with the most current plan of care details and appropriate orders placed. Relevant counseling for the gestational age provided. Continue routine care and follow up unless otherwise noted in visit notes/problem list details OB Flowsheet Initial Weight: Not Recorded Date -?-?-?-?-?-?-?-?-?-?-?-?- EGA Weight BP Urine Prot -?-?-?-?-?-?-?-?-?-?-?-?- Glucose FHR FuHt Pres Dilation -?-?-?-?-?-?-?-?-?-?-?-?- Effaced St Visit Note 03/27/23 -?-?-?-?-?-?-?-?-?-?-?-?- 8w 0d 248 lb 2 oz 117/76 -?-?-?-?-?-?-?-?-?-?-?-?- 160 -?-?-?-?-?-?-?-?-?-?-?-?- SM- CRL 1.7cm co ns with LMP 04/07/23 -?-?-?-?-?-?-?-?-?-?-?-?- 9w 4d 250 lb 6 oz 126/87 Nega tive -?-?-?-?-?-?-?-?-?-?-?-?- Negative 175 -?-?-?-?-?-?-?-?-?-?-?-?- SM- SM- no vb cramping 04/18/23 -?-?-?-?-?-?-?-?-?-?-?-?- 11w 1d 245 lb 6 oz 125/77 Nega tive -?-?-?-?-?-?-?-?-?-?-?-?- Negative 160 -?-?-?-?-?-?-?-?-?-?-?-?- SM- no vb crmapi ng, NIPT today 05/16/23 -?-?-?-?-?-?-?-?-?-?-?-?- 15w 1d 242 lb 8 oz 134/82 Nega tive -?-?-?-?-?-?-?-?-?-?-?-?- Negative -?-?-?-?-?-?-?-?-?-?-?-?- JV- heart tones visible on bedside ultrasound. anatomy scan ordered. will need 24 week echo. 06/13/23 -?-?-?-?-?-?-?-?-?-?-?-?- 19w 1d 242 lb 6 oz 117/76 -?-?-?-?-?-?-?-?-?-?-?-?- 150 -?-?-?-?-?-?-?-?-?-?-?-?- SM- no vb lof go od fm no regular ctx 07/10/23 -?-?-?-?-?-?-?-?-?-?-?-?- 23w 0d 245 lb 118/78 Negative -?-?-?-?-?-?-?-?-?-?-?-?- Negative 145 23 -?-?-?-?-?-?-?-?-?-?-?-?- SM- no vb lof go od fm no regular ctx, discussed switching to MFM for GDM control, recommend NPH and novolog instead of tresiba. ordered thyroid testing 08/08/23 -?-?-?-?-?--?-?-?-?-?-?-?- 27w 1d 252 lb 2 oz 112/78 Nega tive -?-?-?-?-?-?-?-?-?-?-?-?- Negative 137 28 -?-?-?-?-?-?-?-?-?-?-?-?- JV- no lof, vagi nal bleeding, or dec fm. followed by mfm for gdm and doing well. CL on 08/19/23 08/22/23 -?-?-?-?-?-?-?-?-?-?-?-?- 29w 1d 253 lb 117/80 Negative -?-?-?-?-?-?-?-?-?-?-?-?- Negative 140 29 -?-?-?-?-?-?-?-?-?-?-?-?- JV- on Aug brian, fastings now controlled. being monitored by mfm but will see endo soon. plan testing twice weekly at 32 weeks. 09/05/23 -?-?-?-?-?-?-?-?-?-?-?-?- 31w 1d 252 lb 118/20 Negative -?-?-?-?-?-?-?-?-?-?-?-?- Negative 140 31 -?-?-?-?-?-?-?-?-?-?-?-?- SM- no vb lof go od fm no regular ctx 09/19/23 -?-?-?-?-?-?-?-?-?-?-?-?- 33w 1d 251 lb 152/86 Negative -?-?-?-?-?-?-?-?-?-?-?-?- Negative -?-?-?-?-?-?-?-?-?-?-?-?- SM- NST stopped due to elevated bp will evaluate on l and d and give celestone 09/26/23 -?-?-?-?-?-?-?-?-?-?-?-?- 34w 1d 251 lb 4 oz 124/72 Nega tive -?-?-?-?-?-?-?-?-?-?-?-?- Negative 130 -?-?-?-?-?-?-?-?-?-?-?-?- SM- s/p steroids , BS reviewed. no vb lof good fm no regular ctx 10/03/23 -?-?-?-?-?-?-?-?-?-?-?-?- 35w 1d 255 lb 2 oz 117/76 Nega tive -?-?-?-?-?-?-?-?-?-?-?-?- Negative 120 -?-?-?-?-?-?-?-?-?-?-?-?- JV- still going up on insulin slightly. fastings right at 95. no lof, vaginal bleeding, or dec fm. wants clear drape. message left on l&d to order them. 10/10/23 -?-?-?-?-?-?-?-?-?-?-?-?- 36w 1d 257 lb 118/84 118/84 Negative -?-?-?-?-?-?-?-?-?-?-?-?- Negative 130 -?-?-?-?-?-?-?-?-?-?-?-?- JV- glucose leve ls are stable. nst reactive. GBS collected. ROS Constitutional Constitutional: Denies change in weight, fatigue, fever(s), headache(s), poor appetite or weakness Eyes Eyes: Denies blurry vision, change in vision, seeing flashes or spots in vision ENT HEENT: Denies dizziness, headache(s), loss taste/smell or sore throat Cardiovascular Cardiovascular: Denies chest pain, dizziness, dyspnea, irregular heart rhythm, leg edema, palpitations, rapid heart rate or vomiting Respiratory/Chest Respiratory/Chest: Denies chest tightness, cough, dyspnea or breast pain Gastrointestinal Gastrointestinal: Denies abdominal pain, anorexia, constipation, cramping, diarrhea, hemorrhoids, vomiting or weight changes Genitourinary Genitourinary: Denies dysuria, flank pain, genital lesions, genital pain, urin gabi frequency or urinary urgency Musculoskeletal Musculoskeletal: Denies back pain, difficulty walking, joint pain, limited range of motion, muscle cramps or numbness Integumentary Integumentary: Denies lesions or unusual bruising Neurologic Neurologic: Denies abnormal movements, abnormal speech, dizziness, numbness, seizure-like activity or syncope Psychiatric Psychiatric: Denies anxiety, behavioral changes, change in appetite, change in libido, cognitive impairment, confusion, depression, difficulty concentrating, hallucinations or suicidal thoughts Endocrine Endocrinology: Denies excessive sweating, polydipsia or polyuria Hematologic/Lymphatic Hematologic/Lymphatic: Denies easy bleeding, easy bruising or lymphadenopathy Allergic/Immunologic Allergic/Immunologic: Denies itchy eyes, lip swelling, seasonal rhinorrhea, rhinitis, throat swelling, tongue swelling, eczemia, wheezing or asthma Physical Exam Const alert, oriented x3, no apparent distress and healthy appearing General Appearance: cooperative; Negative for anxious HEENT normocephalic Face and Sinus: normal facial exam Eyes EOMs intact bilaterally and no scleral icterus General Eye: normal appearance of both eyes Neck full ROM and supple Lymph Lymphatic: no lymphadenopathy noted Chest Chest: abnormal inspection of the chest Resp normal respiratory effort Effort and Inspection: able to speak in complete sentences Cardio regular rate GI soft to palpation and non-tender Inspection: gravid Palpation: soft; Negative for tender external exam normal Amniotic Fluid: other pending Back/Spine no CVA tenderness Extremity normal to inspection, full ROM and no clubbing, cyanosis or edema General Extremity: Negative for calf tenderness or edema Skin Lesions: no lesions Rashes: no rashes Psych mental status grossly normal Labs Labs Labs: Blood Type O POSITIVE Antibody Screen NEGATIVE Hct 37.5 % (37-47) Hgb 12.6 g/dL (12.0-15.0) Obstetrics Ultrasound Syphilis Total Ab Non-reactive Rubella IgG Antibody Reactive (Nonreactive) Hep Bs Antigen Non-Reactive (Nonreactive) Hepatitis C Antibody Non-Reactive (Nonreactive) Chlamydia DNA (LINETTE) Negative (Negative) N.gonorrhoeae DNA (LINETTE) Negative (Negative) HIV 1&2 Antibody Non-Reactive (Nonreactive) Glucose 1 Hr 50 gm 144 mg/dL (70-140) H Gest Glucose Tolerance MG/DL Rhogam given: No Miscellaneous Test Assessment & Plan (1) Visual changes: COMMENT: pih labs normal, blood pressures normal. ongoing all of pregn maria elena, recommend ophthalmology examination as this may be related to diabetes and not pre-eclampsia. (2) Preexisting diabetes complicating , antepartum: COMMENT: MFM consult for management, recommend switching to NPH and novolog. Growth US Q4wk and then twice weekly testing at 32 wk. growth 10/07- 3447g 89% AC 98% (3) Baljit's disease: COMMENT: check tsh, free t4, tpo Ab q trimester (4) Hx of gestational diabetes in prior , currently : COMMENT: 3 HR GTT failed encouraged healthy weight gain (5) Hx of section: COMMENT: plan RLTCS with SM (6) Advanced maternal age (AMA) in : COMMENT: genetic counseling provided, nipt done, third trimester screening (7) resulting from in vitro fertilization: COMMENT: nl echo (8) Supervision of high-risk : COMMENT: PRR , GURWINDER 11/06/23 boy GURMEET Melissa Adopted children -Fabiano Palm Jocelyn Soo (9) : QUALIFIERS: Weeks of gestation: 36 weeks Qualified Code(s): Z3A.36 - 36 weeks gestation of COMMENT: NIPT low risk, declined afp and carrier testing. anatomy nl. 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 PLAN: Plan plan for repeat section now. Per Dr. Shauna Maddox, she believes she could be ruptured for up to 6 days. ROM plus could be negative by now so will proceed with delivery catal[place].
== END | disposition home or self-care (01) ==
PROVIDERS: PCP Family Medicine; Referring Provider Obstetrics & Gynecology; Visit Provider Obstetrics & Gynecology
DX: O24.319 Unspecified pre-existing diabetes mellitus in pregnancy, unspecified trimester (principal); Z3A.00 Weeks of gestation of pregnancy not specified
CPT/HCPCS: 87081

== ENCOUNTER 2023-10-14 11:05 | Inpatient (IN) | payer OTHER, SELFPAY ==
[2023-10-14] VITALS (17 sets, daily range): BP systolic 106–136; BP diastolic 56–83; PULSE 75–103; RESP 12–18; TEMP 36.2–37; O2SAT 94–99; BMI 41.1
[2023-10-14 11:49] LABS: Bedside Glucose 72 mg/dL (74-106)
[2023-10-14] MEDS: Lactated Ringers 1,000 ML 999 ML IV (11:55)
[2023-10-14] MEDS: Azithromycin 500 MG in Dextrose 5%-Water (250mL Bag) 250 ML 250 MG IV (12:08)
[2023-10-14 12:09] LABS: ROM Internal Control Test YES-OK TO RESULT pt. (Internal QC); ROM Patient Test Negative (Negative); Record Kit Lot#, ROM+ K1374
[2023-10-14 12:16] LABS: Absolute Lymphocyte Count 1.36 X10^3/uL (0.83-4.51); Absolute Neutrophil Count 4.5 X10^3/uL (2.0-7.7); Basophil# 0.03 X10^3/uL; Basophil% 0.4 % (0-1); Eosinophil# 0.23 X10^3/uL; Eosinophils% 3.4 % (0-5); Hematocrit 36.8 % (37-47); Hemoglobin 12.2 g/dL (12.0-15.0); Lymphocyte # 1.36 X10^3/ul (0.83-4.51); Lymphocyte % 20.1 % (19-41); Mean Corp Hgb Conc 33.2 g/dL (32-36); Mean Corpuscular Hgb 28.6 pg (27.0-32.0); Mean Corpuscular Volume 86.2 fL (81-99); Mean Platelet Vol. 10.5 fl (6.2-12.0); Monocyte# 0.62 X10^3/uL; Monocyte% 9.2 % (0-10); NRBC Flagged by Analyzer 0 % (0-5); Neutrophil # 4.49 X10^3/uL (2.7-7.7); Neutrophil % 66.3 % (47-70); Platelet Count 244 K/mm3 (150-450); RBC Distribution Width CV 13.5 % (11.6-14.6); RBC Distribution Width SD 41.9 fl (35.1-43.9); Red Blood Count 4.27 M/mm3 (4.2-5.4); White Blood Count 6.8 K/mm3 (4.4-11.0)
[2023-10-14] MEDS: Acetaminophen 500 MG Tablet 1000 MG PO ×3 (12:20→23:57)
[2023-10-14] MEDS: Sodium Citrate/Citric Acid 30 ML UDC PO ×2 (12:23→15:08)
[2023-10-14 13:06] LABS: Syphilis Antibodies Non-reactive
[2023-10-14] MEDS: Cefazolin 2 GM in 0.9% Normal Saline (100mL Bag) 100 ML IV (14:55)
[2023-10-14] MEDS: Methylergonovine 0.2 MG/ML Ampul 0.200000000000000011 MG IM (15:27)
--- NOTE | 2023-10-14 15:43 | HP.PCM.OB_ITS ---
HPI - General General Date of Admission: 10/14/23 HPI Narrative ENOC ACOSTA, is a 37 y/o @ who presents to L&D at 36 weeks 5 days from [facility] with oligohydramnios vs srom. She has been wearing a pad for several days due to leaking fluid that is worse when she coughs. She denies vaginal bleeding or contractions. She is interested in a repeat section. 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 Supervision of high risk , antepartum Unicornuate uterus Home Medications docosahexaenoic acid 200 mg capsule ( DHA) 1 mg PO DAILY 03/20/23 [History Last Taken 10/08/23 08:00 1 mg] magnesium glycinate-mag oxide mg PO 03/20/23 [History Last Taken 10/07/23 22:00 240 mg] blood sugar diagnostic (Blood Glucose Test strips) #120 ea 05/13/23 [Rx Last Taken Unknown] lancets #200 ea 05/13/23 [Rx Last Taken Unknown] pen needle, diabetic 32 gauge x 5/32 (BD Ultra-Fine Vanda Pen Needle) #150 ea 06/05/23 [Rx Last Taken Unknown] blood-glucose meter #1 ea 06/24/23 [Rx Last Taken Unknown] blood-glucose sensor (FreeStyle Lalo 3 Sensor device) #1 ea 07/10/23 [Rx Last Taken Unknown] insulin NPH isoph U-100 human 100 unit/mL (3 mL) subcutaneous pen (Novolin N FlexPen) 38 unit subcut QPM 10/03/23 [History Last Taken 10/08/23 08:00 12 unit] insulin lispro 100 unit/mL subcutaneous pen (Admelog SoloStar U-100 Insulin lispro) 1 sliding scale dose subcut USEASDIRECTD 10/03/23 [History Last Taken 10/08/23 17:00 18] Allergy/AdvReac Type Severity Reaction Status Date / Time gluten Allergy Upset Verified 10/10/23 14:55 Stomach Family History Father Heart disease Alzheimer disease Mother Heart disease Alzheimer disease Grandmother Breast cancer Heart disease Alzheimer disease Grandfather Alzheimer disease Heart disease Surgical History ACL (anterior cruciate ligament) tear H/O dilation and curettage Social History adopted: No household members: spouse and children number of children: 4 current occupational status: employed current occupation: Mental Health Counselor pets and animals: Yes (not managing litterbox ) pets and animals: cat(s), dog(s) and turtle(s) history of recent travel: No Smoking Status: Former smoker how long ago did patient quit smokin alcohol intake: former details: stopped upon substance use type: does not use diet: gluten free well-balanced diet: daily or most days caffeine: Yes Type: coffee Number of servings: 2 eating out: rarely or never during the past year weight has: increased > 10 lbs what type of physical activity do you participate in: other details: crossfit frequency: 1-2 times per week duration: 45-60 minutes/day veto/yazdanism: Other seatbelt use: always do you feel safe at home: Yes additional social history: Soo spouse [employer] Foster parents History 4 Elective abortions Hx Para 1 Spontaneous abortions Hx # Term Pregnancies Ectopic pregnancies Hx # Pregnancies Multiple births # of living children 1 Past Pregnancies Del. Date Name GA/Weeks Outcome Route Bth Weight Gen Labor L[facility] F[facility] 02[facility]15[facility]20 Melissa 39 live - full term Female spinal [facility] Delivery Date: 02/15/20 Last Updated by: Lennie Harris [facility]CS BREECH PRESENTATION, UNICORUNUATE UTERUS, GDM Visit Details Expected Delivery Route/Plan RLTCS with SM Plans Covid status: discussed Flu vaccine: [] Tdap vaccine: [] Rhogam: [] LARC form signed: [] Problem list reviewed and updated with the most current plan of care details and appropriate orders placed. Relevant counseling for the gestational age provided. Continue routine care and follow up unless otherwise noted in visit notes/problem list details OB Flowsheet Initial Weight: Not Recorded Date -?-?-?-?-?-?-?-?-?-?-?-?- EGA Weight BP Urine Prot -?-?-?-?-?-?-?-?-?-?-?-?- Glucose FHR FuHt Pres Dilation -?-?-?-?-?-?-?-?-?-?-?-?- Effaced St Visit Note 03/27/23 -?-?-?-?-?-?-?-?-?-?-?-?- 8w 0d 248 lb 2 oz 117/76 -?-?-?-?-?-?-?-?-?-?-?-?- 160 -?-?-?-?-?-?-?-?-?-?-?-?- SM- CRL 1.7cm co ns with LMP 04/07/23 -?-?-?-?-?-?-?-?-?-?-?-?- 9w 4d 250 lb 6 oz 126/87 Nega tive -?-?-?-?-?-?-?-?-?-?-?-?- Negative 175 -?-?-?-?-?-?-?-?-?-?-?-?- SM- SM- no vb cramping 04/18/23 -?-?-?-?-?-?-?-?-?-?-?-?- 11w 1d 245 lb 6 oz 125/77 Nega tive -?-?-?-?-?-?-?-?-?-?-?-?- Negative 160 -?-?-?-?-?-?-?-?-?-?-?-?- SM- no vb crmapi ng, NIPT today 05/16/23 -?-?-?-?-?-?-?-?-?-?-?-?- 15w 1d 242 lb 8 oz 134/82 Nega tive -?-?-?-?-?-?-?-?-?-?-?-?- Negative -?-?-?-?-?-?-?-?-?-?-?-?- JV- heart tones visible on bedside ultrasound. anatomy scan ordered. will need 24 week echo. 06/13/23 -?-?-?-?-?-?-?-?-?-?-?-?- 19w 1d 242 lb 6 oz 117/76 -?-?-?-?-?-?-?-?-?-?-?-?- 150 -?-?-?-?-?-?-?-?-?-?-?-?- SM- no vb lof go od fm no regular ctx 07/10/23 -?-?-?-?-?-?-?-?-?-?-?-?- 23w 0d 245 lb 118/78 Negative -?-?-?-?-?-?-?-?-?-?-?-?- Negative -?-?-?-?-?-?-?-?-?-?-?-?- SM- no vb lof go od fm no regular ctx, discussed switching to MFM for GDM control, recommend NPH and novolog instead of tresiba. ordered thyroid testing 08/08/23 -?-?-?-?-?-?-?--?-?-?-?-?- 27w 1d 252 lb 2 oz 112/78 Nega tive -?-?-?-?-?-?-?-?-?-?-?-?- Negative 137 28 -?-?-?-?-?-?-?-?-?-?-?-?- JV- no lof, vagi nal bleeding, or dec fm. followed by mfm for gdm and doing well. CL on 08/19/23 08/22/23 -?-?-?-?-?-?-?-?-?-?-?-?- 29w 1d 253 lb 117/80 Negative -?-?-?-?-?-?-?-?-?-?-?-?- Negative 140 29 -?-?-?-?-?-?-?-?-?-?-?-?- JV- on Aug brian, fastings now controlled. being monitored by mfm but will see endo soon. plan testing twice weekly at 32 weeks. 09/05/23 -?-?-?-?-?-?-?-?-?-?-?-?- 31w 1d 252 lb 118/20 Negative -?-?-?-?-?-?-?-?-?-?-?-?- Negative 140 31 -?-?-?-?-?-?-?-?-?-?-?-?- SM- no vb lof go od fm no regular ctx 09/19/23 -?-?-?-?-?-?-?-?-?-?-?-?- 33w 1d 251 lb 152/86 Negative -?-?-?-?-?-?-?-?-?-?-?-?- Negative -?-?-?-?-?-?-?-?-?-?-?-?- SM- NST stopped due to elevated bp will evaluate on l and d and give celestone 09/26/23 -?-?-?-?-?-?-?-?-?-?-?-?- 34w 1d 251 lb 4 oz 124/72 Nega tive -?-?-?-?-?-?-?-?-?-?-?-?- Negative 130 -?-?-?-?-?-?-?-?-?-?-?-?- SM- s/p steroids , BS reviewed. no vb lof good fm no regular ctx 10/03/23 -?-?-?-?-?-?-?-?-?-?-?-?- 35w 1d 255 lb 2 oz 117/76 Nega tive -?-?-?-?-?-?-?-?-?-?-?-?- Negative 120 -?-?-?-?-?-?-?-?-?-?-?-?- JV- still going up on insulin slightly. fastings right at 95. no lof, vaginal bleeding, or dec fm. wants clear drape. message left on l&d to order them. 10/10/23 -?-?-?-?-?-?-?-?-?-?-?-?- 36w 1d 257 lb 118/84 118/84 Negative -?-?-?-?-?-?-?-?-?-?-?-?- Negative 130 -?-?-?-?-?-?-?-?-?-?-?-?- JV- glucose leve ls are stable. nst reactive. GBS collected. ROS Constitutional Constitutional: Denies change in weight, fatigue, fever(s), headache(s), poor appetite or weakness Eyes Eyes: Denies blurry vision, change in vision, seeing flashes or spots in vision ENT HEENT: Denies dizziness, headache(s), loss taste/smell or sore throat Cardiovascular Cardiovascular: Denies chest pain, dizziness, dyspnea, irregular heart rhythm, leg edema, palpitations, rapid heart rate or vomiting Respiratory/Chest Respiratory/Chest: Denies chest tightness, cough, dyspnea or breast pain Gastrointestinal Gastrointestinal: Denies abdominal pain, anorexia, constipation, cramping, diarrhea, hemorrhoids, vomiting or weight changes Genitourinary Genitourinary: Denies dysuria, flank pain, genital lesions, genital pain, urinar y frequency or urinary urgency Musculoskeletal Musculoskeletal: Denies back pain, difficulty walking, joint pain, limited range of motion, muscle cramps or numbness Integumentary Integumentary: Denies lesions or unusual bruising Neurologic Neurologic: Denies abnormal movements, abnormal speech, dizziness, numbness, seizure-like activity or syncope Psychiatric Psychiatric: Denies anxiety, behavioral changes, change in appetite, change in libido, cognitive impairment, confusion, depression, difficulty concentrating, hallucinations or suicidal thoughts Endocrine Endocrinology: Denies excessive sweating, polydipsia or polyuria Hematologic/Lymphatic Hematologic/Lymphatic: Denies easy bleeding, easy bruising or lymphadenopathy Allergic/Immunologic Allergic/Immunologic: Denies itchy eyes, lip swelling, seasonal rhinorrhea, rhinitis, throat swelling, tongue swelling, eczemia, wheezing or asthma Vital Signs Vital Signs Vital Signs: 10/14/23 11:29 10/14/23 11:29 10/14/23 12:04 Temperature Temperature Source Pulse Rate 90 81 Respiratory Rate Blood Pressure 123/78 H Blood Pressure Mean BP Systolic 123 BP Diastolic 78 Blood Pressure Source Blood Pressure Position Blood Pressure Location Pulse Ox Oxygen Delivery Method 10/14/23 12:04 10/14/23 12:55 Temperature 97.7 F L Temperature Source Temporal Pulse Rate 75 Respiratory Rate 16 Blood Pressure 123/78 H Blood Pressure Mean 93 BP Systolic BP Diastolic Blood Pressure Source Monitor Blood Pressure Position Semi-Fowlers Blood Pressure Location Left Arm Pulse Ox 97 96 Oxygen Delivery Method Room Air Weight Weight: 255 lb Body Mass Index (BMI) 41.1 Physical Exam Const alert, oriented x3, no apparent distress and healthy appearing General Appearance: cooperative; Negative for anxious HEENT normocephalic Face and Sinus: normal facial exam Eyes EOMs intact bilaterally and no scleral icterus General Eye: normal appearance of both eyes Neck full ROM and supple Lymph Lymphatic: no lymphadenopathy noted Chest Chest: abnormal inspection of the chest Resp normal respiratory effort Effort and Inspection: able to speak in complete sentences Cardio regular rate GI soft to palpation and non-tender Inspection: gravid Palpation: soft; Negative for tender external exam normal Amniotic Fluid: ROM+plus Back/Spine no CVA tenderness Extremity normal to inspection, full ROM and no clubbing, cyanosis or edema General Extremity: Negative for calf tenderness or edema Skin Lesions: no lesions Rashes: no rashes Psych mental status grossly normal Labs Labs Labs: Blood Type O POSITIVE Antibody Screen NEGATIVE Hct 36.8 % (37-47) L Hgb 12.2 g/dL (12.0-15.0) Obstetrics Ultrasound Syphilis Total Ab Non-reactive Rubella IgG Antibody Reactive (Nonreactive) Hep Bs Antigen Non-Reactive (Nonreactive) Hepatitis C Antibody Non-Reactive (Nonreactive) Chlamydia DNA (LINETTE) Negative (Negative) N.gonorrhoeae DNA (LINETTE) Negative (Negative) HIV 1&2 Antibody Non-Reactive (Nonreactive) Glucose 1 Hr 50 gm 144 mg/dL (70-140) H Gest Glucose Tolerance MG/DL Rhogam given: No Miscellaneous Test Assessment & Plan (1) Visual changes: COMMENT: pih labs normal, blood pressures normal. ongoing all of , recommend ophthalmology examination as this may be related to diabetes and not pre-eclampsia. (2) Preexisting diabetes complicating , antepartum: COMMENT: MFM consult for management, recommend switching to NPH and novolog. Growth US Q4wk and then twice weekly testing at 32 wk. growth /- 3447g 89% AC 98% (3) Baljit's disease: COMMENT: check tsh, free t4, tpo Ab q trimester (4) Hx of gestational diabetes in prior , currently : COMMENT: 3 HR GTT failed encouraged healthy weight gain (5) Hx of section: COMMENT: plan RLTCS with SM (6) Advanced maternal age (AMA) in : COMMENT: genetic counseling provided, nipt done, third trimester screening (7) resulting from in vitro fertilization: COMMENT: nl echo (8) Supervision of high-risk : COMMENT: PRR , GURWINDER 11/06/23 boy PC Melissa Adopted children -Néstor, Fabiano, Demetra Soo (9) : QUALIFIERS: Weeks of gestation: 36 weeks Qualified Code(s): Z3A.36 - 36 weeks gestation of COMMENT: NIPT low risk, declined afp and carrier testing. anatomy nl. 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 PLAN: Plan After discussing the patient's diagnosis and treatment plan options, patient wishes to proceed with surgical management. I have discussed with the patient the risks, benefits, and alternatives of the procedure which include but are not limited to risks of anesthesia, bleeding, infection, possible damage to bowel, bladder, or surrounding vasculature which could lead to additional surgery to evaluate any complications. Patient agrees to procedure and wishes to proceed. plan is for ERAS repeat section
--- NOTE | 2023-10-14 15:47 | OP.PCM_ITS ---
Assessment & Plan (1) Visual changes: COMMENT: pih labs normal, blood pressures normal. ongoing all of , recommend ophthalmology examination as this may be related to diabetes and not pre-eclampsia. (2) Preexisting diabetes complicating , antepartum: COMMENT: MFM consult for management, recommend switching to NPH and novolog. Growth US Q4wk and then twice weekly testing at 32 wk. growth 10/07- 3447g 89% AC 98% (3) Baljit's disease: COMMENT: check tsh, free t4, tpo Ab q trimester (4) Hx of gestational diabetes in prior , currently : COMMENT: 3 HR GTT failed encouraged healthy weight gain (5) Hx of section: COMMENT: plan RLTCS with SM (6) Advanced maternal age (AMA) in : COMMENT: genetic counseling provided, nipt done, third trimester screening (7) resulting from in vitro fertilization: COMMENT: nl echo (8) Supervision of high-risk : COMMENT: PRR , GURWINDER 11/06/23 boy PC Melissa Adopted children -Néstor, Fabiano, Demetra Soo (9) : QUALIFIERS: Weeks of gestation: 36 weeks Qualified Code(s): Z3A.36 - 36 weeks gestation of COMMENT: NIPT low risk, declined afp and carrier testing. anatomy nl. 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 (11) Oligohydramnios: Maternal Data Information GURWINDER Calculator Estimated Delivery Date Method Current WG Current Estimate 11/06/23 Manual 36w 5d Final GURWINDER: 11/06/23 Gestational age: 36 weeks 5 days [place] Doctor Who Attended Delivery: Newton Braxton Details Operative Information Date of Procedure: 10/14/23 Pre-Operative Diagnosis: 37 y/o , oligohydramnios at 36 weeks 5 days, GDM class B, history of prior section Post-Operative Diagnosis: 37 y/o , oligohydramnios at 36 weeks 5 days, GDM class B, history of prior section Indications Narrative: oligohydramnios Classification: BRISEIDA Procedure Type: low transverse bar host/hostess #1: Deja Arguelles Type of Anesthesia: Spinal Anesthesiologist: Nasir Coulter Antibiotic Given: Ancef 2 grams IV x1 and Zithromax 500 mg/5 mL X1 Estimated Blood Loss: 600cc Fluids Replaced: 1000cc Procedure Start Time: 15:17 Procedure Stop Time: 15:45 Time of Delivery: 15:20 Findings Description of Procedure: The patient is a 37 y/o presented for repeat . Spinal anesthesia was placed without difficulty. Mercer catheter was placed. The patient was placed in the dorsal supine position with leftward tilt. Patient was prepped and draped in the normal sterile fashion. Pfannenstiel skin incision was made with the scalpel and carried through to the underlying layer of fascia with the scalpel. Fascia was nicked in the midline and the incision extended laterally. The rectus bellies were dissected off superiorly and inferiorly with out complication both sharply and bluntly. The peritoneum was entered digitally. The incision was stretched and a low transverse uterine incision was made with the scalpel. The 's head was delivered atraumatically followed by the anterior and posterior shoulders without complication the rest of the delivered. The cord was clamped and cut and the was handed off to awaiting nurse. The placenta was delivered manually immediately following due to feeling adherent to the posterior/fundus. upon delivery there was noted to be a uterine inversion that was immediately corrected. The placenta was noted to be intact and have a three-vessel cord. The uterus was exteriorized cleared of all clots and debris, and the incision was closed in a double layer closure using #1 vicryl and #1 Monocryl. The uterus was noted to be didelphys and the was in the left horn. The right side/horn of the uterus was noted and found to be very small with attached fallopian tube. The uterus was returned to the maternal abdomen and gutters were cleared of all clots and debris. The peritoneum was closed with 3-0 Monocryl in a running fashion. Gloves were changed prior to fascial closure. Fascia was closed with 0 PDS in a running fashion. Subcutaneous tissue was copiously irrigated and the skin was closed with 3-0 Monocryl in a subcuticular fashion. Mepilex dressing was applied without complication. Patient was taken to recovery in stable condition. It was discussed with the patient that based on the clinical information obtained during this encounter, combined with her history, at this time I would recommend repeat section for future deliveries if further pregnancies are desired. Presentation: Positive for Vertex Amniotic Membrane Rupture Type: Artificial Time of Membrane Ruptured: unknown if ruptured prior to incision, rom + neg Amniotic Fluid Description: Clear Placental Delivery Description: Manual Removal Placenta Disposition: [facility] Cord Vessel Description: 3 Vessels Cord Entanglement: None Infant A Gender: Male (1 minute): 9 (5 minute): 9 Delayed Cord Clamping: Yes Complications Risks of Surgery Discussed w/Patient: Bleeding, Anesthesia Risks, Infection, Need for Future C-Sections, Permanency, Failure Rate of 1 to 2% and Injury to surrounding structure(s) including bowel and bladder Complications: none Multi Select Codes Urinary/Genital Urinary/Genital CPT Codes: 76010 [facility]
--- NOTE | 2023-10-14 15:54 | DCINST_ITS ---
Discharge Instructions Diet Discharge Diet: No restrictions Activity Discharge Activity: May Not Drive (for 2 weeks or while taking narcotic pain medications.), May Shower and May Take a Tub Bath (in 7 days.) May resume sexual activity in: 4-6 weeks Weight Bearing Status: Full weight bearing Lifting Restrictions: 20 pounds Dressing / Incision Call your doctor if your incision/area has: Continuous Slow Oozing, Sudden Increased Bleeding, Increased Pain/ Swelling, Increased Redness and Foul Smelling Discharge Call your doctor if you observe: Fever of 101 or Higher and Using more than 1 pad per hour Suture Line Care: Avoid Pulling/Pushing and Avoid Pinching/Bending Cleanse incision/area with: Soap & Water and Keep Dressing Clean & Dry Follow Up Care Please Follow Up With: Jasmina Dozier DO When: Call [phone] to make an appointment for an incision check in 1-2 weeks. Test Results: Test results from this visit will be discussed in further detail at your follow- up appointment, if applicable. Discharge Plan Admission Admit Date/Time: 10/14/23 11:05 Primary Reason for Your Visit: section Attending Provider: Jasmina Dozier Primary Care Provider: Daniel Dias Discharge Orders/Prescriptions Prescriptions: New ibuprofen 800 mg tablet 800 mg PO Q8H PRN (Reason: pain) Qty: 30 0RF Continued DHA 200 mg capsule 1 mg PO DAILY magnesium glycinate-mag oxide 120 mg magnesium capsule PO (DME) FreeStyle Lalo 3 Sensor Device See Rx Instructions .Route Qty: 1 12RF Rx Instructions: As directed insulin lispro [Admelog SoloStar U-100 Insulin] 100 unit/mL insulin pen 1 sliding scale dose subcut USEASDIRECTD Rx Instructions: 8U AM 18U @ Dinner (DME) Blood Glucose Test Strip See Rx Instructions .Route Qty: 120 12RF Rx Instructions: As directed- fasting and 2 HR post meals (DME) lancets Misc See Rx Instructions .MEDSUPPLY Qty: 200 8RF Rx Instructions: As directed-fasting and 2 HR post meals (DME) pen needle, diabetic [BD Ultra-Fine Vanda Pen Needle] 32 gauge x 5/32 needle See Rx Instructions .ROUTE .MEDSUPPLY Qty: 150 6RF Rx Instructions: tid (DME) blood-glucose meter Misc See Rx Instructions .MEDSUPPLY Qty: 1 0RF Rx Instructions: As directed- Test fasting and 2 hours after meals Changed Novolin N FlexPen 100 unit/mL (3 mL) insulin pen 14 unit subcut QPM Qty: 15 0RF Referrals / Follow Up: Daniel Dias MD [Primary Care Provider] - Disposition Disposition (needs filled in before D/C Order can be placed): Home, Self Care
[2023-10-14] MEDS: Oxytocin 15 Units/NS 250ml 15 UNITS/250 ML IV.SOLN 83 UNITS IV (16:15)
[2023-10-14] MEDS: Ketorolac 30 MG/ML Syringe IV ×2 (16:55→22:47)
[2023-10-14 17:56] LABS: Bedside Glucose 78 mg/dL (74-106)
[2023-10-14] MEDS: Ondansetron 4 MG/2 ML Vial IV ×2 (18:30→22:47)
[2023-10-14] MEDS: Lactated Ringers 1,000 ML 100 ML IV (19:28)
[2023-10-14 22:09] LABS: Bedside Glucose 108 mg/dL (74-106)
[2023-10-15] VITALS (13 sets, daily range): BP systolic 110–121; BP diastolic 63–80; PULSE 72–90; RESP 15–18; TEMP 36.3–36.8; O2SAT 94–99
[2023-10-15] MEDS: Lactated Ringers 1,000 ML 150 ML IV (02:47)
[2023-10-15] MEDS: Ondansetron 4 MG/2 ML Vial IV ×2 (02:47→06:41)
[2023-10-15] MEDS: LACTATED RINGERS 500 ML 999 ML IV (04:25)
[2023-10-15] MEDS: Enoxaparin 40 MG/0.4 ML Syringe SC ×2 (04:27→22:36)
[2023-10-15] MEDS: Ketorolac 30 MG/ML Syringe IV ×2 (05:24→11:03)
[2023-10-15] MEDS: Acetaminophen 500 MG Tablet 1000 MG PO ×4 (06:41→23:54)
[2023-10-15 07:02] LABS: Hematocrit 28.4 % (37-47); Hemoglobin 9.6 g/dL (12.0-15.0); Mean Corp Hgb Conc 33.8 g/dL (32-36); Mean Corpuscular Hgb 29.5 pg (27.0-32.0); Mean Corpuscular Volume 87.4 fL (81-99); Mean Platelet Vol. 10.1 fl (6.2-12.0); Platelet Count 196 K/mm3 (150-450); RBC Distribution Width CV 13.8 % (11.6-14.6); RBC Distribution Width SD 42.7 fl (35.1-43.9); Red Blood Count 3.25 M/mm3 (4.2-5.4); White Blood Count 5.4 K/mm3 (4.4-11.0)
[2023-10-15 07:14] LABS: Bedside Glucose 78 mg/dL (74-106)
--- NOTE | 2023-10-15 08:13 | PN.OBGYN_ITS ---
Subjective Subjective Patient doing well without complaints. Tolerating PO. Ambulating and voiding without difficulty. Feeding well. Denies chest pain, shortness of breath, calf pain/swelling, fevers, chills, lightheadedness. Objective Data Objective Data Vital Signs: Vital Signs Temp Pulse Resp BP Pulse Ox O2 Del Method 97.9 F 72 16 121/72 H 98 Room Air 10/15/23 04:02 10/15/23 07:30 10/15/23 07:30 10/15/23 04:02 10/15/23 07:30 10/15/23 07:30 Oxygen Delivery Method Room Air Weight: 255 lb Body Mass Index (BMI) 41.1 Intake & Output: Intake and Output for Last 24 Hours 10/13/23 10/14/23 10/15/23 23:59 23:59 23:59 Intake Total 1870.00 / 1870.00 1460 / 1460 Output Total 940 / 940 180 / 180 Balance 930.00 / 930.00 1280 / 1280 Lab / Micro Data 10/15/23 06:48 Labs: Laboratory Results - last 24 hr 10/14/23 11:26: Vag Amniotic Fld Detect Negative 10/14/23 11:28: POC Glucose 72 L 10/14/23 11:55: WBC 6.8, RBC 4.27, Hgb 12.2, Hct 36.8 L, MCV 86.2, MCH 28.6, MCHC 33.2, RDW Std Deviation 41.9, RDW Coeff of Donna 13.5, Plt Count 244, MPV 10.5, Immature Gran % (Auto) 0.600, Neut % (Auto) 66.3, Lymph % (Auto) 20.1, [place] % (Auto) 9.2, Eos % (Auto) 3.4, Baso % (Auto) 0.4, Absolute Neuts (auto) 4.5, Absolute Lymphs (auto) 1.36, Nucleated RBC % 0, Syphilis Total Ab Non- reactive, Blood Type O POSITIVE, Antibody Screen NEGATIVE 10/14/23 17:32: POC Glucose 78 10/14/23 21:45: POC Glucose 108 H 10/15/23 06:48: WBC 5.4, RBC 3.25 L, Hgb 9.6 L, Hct 28.4 L, MCV 87.4, MCH 29.5, MCHC 33.8, RDW Std Deviation 42.7, RDW Coeff of Donna 13.8, Plt Count 196, MPV 10.1 10/15/23 06:53: POC Glucose 78 Physical Exam Const alert and no apparent distress Neck full ROM Lymph Lymphatic: no lymphadenopathy noted Chest inspection of chest normal Nipple/Areola: nipples/areola normal Resp normal respiratory effort, normal air movement, no retractions and clear to auscultation bilaterally Cardio regular rate and regular rhythm GI normal to inspection, nondistended, normoactive bowel sounds Uterus Palpation: uterus fundus firm Extremity normal to inspection, full ROM and no calf tenderness Skin no rashes or lesions noted Skin Narrative: dressing c/d/i. Psych mental status grossly normal Assessment & Plan (1) Preexisting diabetes complicating , antepartum: COMMENT: MFM consult for management, recommend switching to NPH and novolog. Growth US Q4wk and then twice weekly testing at 32 wk. growth 10/07- 3447g 89% AC 98% PLAN: check glucose fasting and before meals and 2 hours pp if holding insulin. consulted with aware of fasting glucose of 78. to hold insulin at this time. (2) delivery delivered: (3) Advanced maternal age (AMA) in : COMMENT: genetic counseling provided, nipt done, third trimester screening PLAN: Plan s/p LTCS PPD # 1 1. routine post care 2. breast feeding- support given 3. rh positive 4. rubella immune 5. anticipate d/c home tomorrow
[2023-10-15] MEDS: Senna/Docusate Sodium 1 Tablet PO (11:03)
[2023-10-15] MEDS: Ondansetron ODT 4 MG Tablet PO ×2 (12:43→22:36)
[2023-10-15] MEDS: Ibuprofen 600 MG Tablet PO (18:36)
--- NOTE | 2023-10-15 18:38 | NURSING ---
pts blood sugar on self monitor 97
[2023-10-16] MEDS: Ibuprofen 600 MG Tablet PO ×2 (01:13→07:57)
[2023-10-16 01:15] VITALS: BP 119/70; PULSE 80; RESP 15; TEMP 36.4; O2SAT 96
[2023-10-16] MEDS: Acetaminophen 500 MG Tablet 1000 MG PO (06:37)
--- NOTE | 2023-10-16 06:54 | NURSING ---
fasting blood glucose from patient's own glucometer was 109
[2023-10-16 07:47] VITALS: BP 130/80; PULSE 76; RESP 18; TEMP 36.3; O2SAT 95
--- NOTE | 2023-10-16 08:05 | PCM.PN.OB ---
Subjective Subjective Patient doing well without complaints. Tolerating PO. Ambulating and voiding without difficulty. feeding well. Denies chest pain, shortness of breath, calf pain/swelling, fevers, chills, lightheadedness. Objective Data Objective Data Vital Signs: Vital Signs Temp Pulse Resp BP Pulse Ox O2 Del Method 97.4 F L 76 18 130/80 H 95 Room Air 10/16/23 07:47 10/16/23 07:47 10/16/23 07:47 10/16/23 07:47 10/16/23 07:47 10/16/23 07:47 Oxygen Delivery Method Room Air Weight: 255 lb Body Mass Index (BMI) 41.1 Intake & Output: Intake and Output for Last 24 Hours 10/14/23 10/15/23 10/16/23 23:59 23:59 23:59 Intake Total 1870.00 / 1870.00 2215 / 2215 Output Total 940 / 940 1780 / 1780 Balance 930.00 / 930.00 435 / 435 Lab / Micro Data 10/15/23 06:48 ROS Constitutional Constitutional: Reports systems reviewed and no addt'l complaints, except as documented Cardiovascular Cardiovascular: Reports systems reviewed and no addt'l complaints, except as documented Respiratory/Chest Respiratory/Chest: Reports systems reviewed and no addt'l complaints, except as documented Gastrointestinal Gastrointestinal: Reports systems reviewed and no addt'l complaints, except as documented Physical Exam Const alert, oriented x3 and no apparent distress HEENT Head and Scalp: atraumatic Resp normal respiratory effort GI soft to palpation and non-tender Inspection: incision intact, healing well and drainage (none) Bimanual Exam - Vag & Uterus: uterus non-tender Uterus Palpation: uterus fundus firm (below Umbilicus) Assessment & Plan (1) delivery delivered: PLAN: Plan s/p LTCS PPD # 2 1. routine post care 2. breast feeding- support given 3. rh positive 4. rubella immune
[2023-10-16] MEDS: Senna/Docusate Sodium 1 Tablet PO (09:57)
== END 2023-10-16 11:20 | disposition home or self-care (01) | DRG 786 ==
PROVIDERS: Admitting Provider Obstetrics & Gynecology; PCP Family Medicine; Referring Provider Obstetrics & Gynecology; Visit Provider Obstetrics & Gynecology
DX: O34.211 Maternal care for low transverse scar from previous cesarean delivery (principal); O24.32 Unspecified pre-existing diabetes mellitus in childbirth; O41.03X0 Oligohydramnios, third trimester, not applicable or unspecified; Z79.4 Long term (current) use of insulin; E06.3 Autoimmune thyroiditis; Z37.0 Single live birth; O99.284 Endocrine, nutritional and metabolic diseases complicating childbirth; O99.891 Other specified diseases and conditions complicating pregnancy; O34.03 Maternal care for unspecified congenital malformation of uterus, third trimester; Q51.4 Unicornate uterus; Q51.28 Other and unspecified doubling of uterus; Z3A.36 36 weeks gestation of pregnancy; Z87.59 Personal history of other complications of pregnancy, childbirth and the puerperium; Z87.891 Personal history of nicotine dependence
CPT/HCPCS: 59025; 59050; 82962; 84112; 85025; 85027; 86780; 86850; 86900; 86901; 99221; J7120; G0378; J2405

== ENCOUNTER → 2023-11-06 | Outpatient (CLI) | payer OTHER, SELFPAY ==
--- NOTE | 2023-11-06 12:25 | US_ITS ---
INDICATION: post op bleeding 3 weeks post delivery EXAMINATION: Ultrasound US Pelvis Non OB Complete With Transvaginal Imaging TECHNIQUE: Transabdominal and transvaginal pelvic ultrasound was performed. Grayscale, spectral waveform, and color flow Doppler evaluation of the adnexa. COMPARISON: FINDINGS: UTERUS: Anteverted. The uterus measures 9.8 x 5.4 x 6.1 cm. There is no uterine mass. The endometrial stripe measures 22 mm which is thickened with heterogeneity. There is a lower uterine 2.6 x 1.2 x 2.2 cm area of heterogeneous hypoechogenicity possibly representing a septated collection related to . RIGHT OVARY: 3.0 x 1.3 x 2.3 cm. Non-enlarged, normal echogenicity. There is normal vasculature present in the right ovary. LEFT OVARY: 1.4 x 1.1 x 2.2 cm. Non-enlarged, normal echogenicity. There is normal vasculature present in the left ovary. FREE FLUID: None. US/Pelvic w/ Transvaginal IMPRESSION: Thickened heterogeneous endometrium. Septated lower uterine collection may be postoperative related. Follow-up is needed. Electronically Signed: Yfn Anderson DO at 17:10 EST Reading Location ID and State: [facility] / [place] Tel [phone], Service support ,
--- OUTSIDE RECORDS SUMMARY | 2023-11-06 12:41 | XMS RPT_ITS | CCD ---
Author Name Unknown Address [id number] [place] [address] Organization [facility] Care Team Providers Care Tool Drawing Checker Name Role Phone GALLARDOJEAN HDZ Referring Unavailable Kulwinder Knutson MD Unavailable Unavailable Kathleen El MD Unavailable UnavailDaniel Granado Unavailable Unavailable Kulwinder Knutson Unavailable Unavailable ANGIE PEÑA, YOHANA Primary Care Physician Daniel Martinez MD Primary Care Provider DANIEL ADAMS Primary Care Unavailable MARGY HANDY Attending Unavailable ABRIL VALDOVINOS Attending Unavailable DANIEL ADAMS Primary Care Unavailable Daniel Adams Unavailable Unavailable Unavailable Unavailable Unavailable MD LOUIS BRADLEY Attending Lory Adams, Dr. Daniel Lloyd Primary Care Unavail able Angie, Dr. Daniel Lloyd Primary Care Unavail able MD LOUIS BRADLEY Attending Lory Adams, Dr. Daniel Lloyd Primary Care Unavail able MD LOUIS BRADLEY Attending Lory Adams, Dr. Daniel Lloyd Primary Care Unavail able MD LOUIS BRADLEY Attending Lory Adams, Dr. Daniel Lloyd Primary Care Unavail able MD LOUIS BRADLEY Attending Susanva chitra Adams, Dr. Daniel Lloyd Primary Care Unavail able RIYA PAULSON Attending UnavailMARGY Wheatley Referring UnavailMARGY Wheatley Primary Care UnavailDIXON Hernández Attending Unavailable MARGY CUETO Referring UnavailMARGY Wheatley Primary Care UnavailRADHA Goldberg Attending Unavailable MARGY CUETO Primary Care Unavailabl e MARGY CUETO Referring Unavailabl e GUPTA, RADHA F Attending Unavailable RADHA GUPTA Attending Unavailable LATOYA MAHER Referring Unavailab le NO PRIMARY CARE, Primary Care Unavailable MARGY CUETO Referring Unavailabl e RUPERT SOW Attending Unavailable NO PRIMARY CARE, Primary Care Unavailable MARGY CUETO Primary Care Unavailabl e MARGY CUETO Referring Unavailabl e CANDY, RADHA F Attending Unavailable KATERINA MARTINEZ Attending Unavailable LATOYA MAHER Referring Unavailab le NO PRIMARY CARE, Primary Care Unavailable MARGY CUETO Primary Care Unavailabl e LATOYA MAHER Referring Unavailab JACOBY Matthews Attending Unavailable MARGY CUETO Primary Care Unavailabl e MARGY CUETO Referring Unavailabl e RUPERT SOW Attending Unavailable TIM RECINOS Attending Unavailable MARGY CUETO Primary Care Unavailabl e CANDY, RADHA Ortiz Attending Unavailable LATOYA MAHER Referring Unavailab le LATOYA MAHER Referring Unavailab le NO PRIMARY CARE, Primary Care Unavailable KATERINA MARTINEZ Attending Unavailable LATOYA MAHER Referring Unavailab le NO PRIMARY CARE, Primary Care Unavailable MARGY CUETO Primary Care Unavailabl e MARGY CUETO Referring Unavailabl e TIM RECINOS Attending Unavailable MARGY CUETO Primary Care Unavailabl e MARGY CUETO Referring Unavailabl e TIM RECINOS Attending Unavailable RADHA GUPTA Attending Unavailable MARGY CUETO Primary Care Unavailabl TIM Dutta Attending Unavailable MARGY CUETO Referring Unavailabl e Allergies Allergy Classification Reported Allergen(s) Allergy Type Date of Onset Reaction(s) Facility Grains (1 source) glutenin Food Allergy [facility] Work Phone: (9 sources) glutenin Allergy to substance (finding) [id number] n 320 Work Phone: (1 source) GLUTEN MEAL; Translations: [GLUTEN MEAL] Propensity to adverse reactions to drug (disorder) 0 [facility] Repository Medications Current Medications Medication Drug Class(es) Dates Sig (Normalized) Sig (Original) Azithromycin 5 Day Dose Pack 250 mg oral tablet (1 source) Start: 12-20-2021 End: 12-25-2021 take 1 tablet by mouth once daily Azithromycin 5 Day Dose Pack 250 mg oral tablet 1 dose, Oral, Daily, X 5 day(s), # 6 tab(s), 0 Refill(s), 12/25/21 17:55:00 EST, 109.1 Start Date: 12/20/21 Stop Date: 12/25/21 Status: Ordered Completed/Discontinued Medications Medication Drug Class(es) Dates Sig (Normalized) Sig (Original) B-Complex Plus (Pure Encapsulations) - 1qD stress/energy/horm ones/detox/weight loss (1 source) Start: 01-29-2021 End: 08-06-2022 take 1 capsule by mouth once daily B-Complex Plus (Pure Encapsulations) - 1qD stress/energy/hormo peter/detox/weight loss Take 1 capsule by mouth once daily. 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] Onset: 12-10-2022 Chronic Headache; including migraine (1 source) Migraine with aura, not intractable, without status migrainosus; Translations: [Migraine with aura, not intractable, without status migrainosus] Onset: 11-13-2018 Chronic Immunizations and screening for infectious disease (20 sources) Patient encounter status; Translations: [Special screening examination for other specified chlamydial diseases] Episodic Malaise and fatigue (2 sources) Malaise and fatigue; Translations: [Other malaise] Episodic Nonspecific chest pain (1 source) Chest pain; Translations: [Chest pain, unspecified] Onset: 12-20-2021 Episodic Nutritional deficiencies (1 source) Nutritional deficiency state; Translations: [Nutritional deficiency, unspecified] Episodic Other connective tissue disease (1 source) Other muscle spasm; Translations: [Other muscle spasm] Onset: 11-13-2018 Episodic Other female genital disorders (10 sources) Abnormal uterine bleeding; Translations: [Unspecified disorders of menstruation and other abnormal bleeding from female genital tract] Chronic Other female genital disorders (10 sources) History of recurrent miscarriage - not ; Translations: [Recurrent loss without current ] Episodic Other gastrointestinal disorders (2 sources) Abdominal bloating; Translations: [Abdominal distension (gaseous)] Episodic Other infections; including parasitic (10 sources) History of herpes zoster; Translations: [Personal history of other infectious and parasitic diseases] Episodic Other nervous system disorders (10 sources) Postoperative pain ; Translations: [Other acute postoperative pain] Episodic Other and delivery including normal (2 sources) Finding of ; Translations: [Encounter for care and examination of lactating mother] Episodic Other skin disorders (1 source) Nonscarring hair loss, unspecified; Translations: [Nonscarring hair loss, unspecified] Onset: 11-13-2018 Episodic Other upper respiratory infections (1 source) Postnasal drip; Translations: [Postnasal drip] Onset: 11-13-2018 Episodic Pneumonia (except that caused by tuberculosis or sexually transmitted disease) (1 source) Pneumonia; Translations: [Pneumonia, unspecified organism] Onset: 12-20-2021 Episodic Residual codes; unclassified (3 sources) Unrefreshed by sleep; Translations: [Other sleep disorders] Onset: 08-06-2022 Chronic Residual codes; unclassified (1 source) Contact with and (suspected) exposure to mold (toxic); Translations: [Contact with and (suspected) exposure to mold (toxic)] Onset: 11-13-2018 Episodic Thyroid disorders (14 sources) Autoimmune thyroiditis; 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] Onset: 10-28-2018 Chronic Past or Other Problems Problem Classification Problem Date Documented Da te Episodic/Chronic Allergic reactions (3 sources) Other allergy status, other than to drugs and biological substances; Translations: [Environmental allergy] Onset: 10-28-2018 10-28-2018 Episodic Contraceptive and procreative management (1 source) Encounter for assisted reproductive fertility procedure cycle; Translations: [Encounter for assisted reprodctv fertility procedure cycle] Onset: 02-18-2023 Episodic Other female genital disorders (1 source) Recurrent loss; Translations: [Recurrent loss] Onset: 12-06-2022 Episodic Other gastrointestinal disorders (2 sources) Small bowel bacterial overgrowth syndrome; Translations: [Other specified diseases of intestine] Onset: 11-16-2018 11-16-2018 Episodic Other screening for suspected conditions (not mental disorders or infectious disease) (2 sources) Encounter for screening for other suspected endocrine disorder; Translations: [Encounter for test, result negative] Onset: 12-10-2022 Episodic NEGATED: Highlighted row has not occurred!Residual codes; unclassified (4 sources) Disease Episodic Results Test Name Value Interpretation Reference Range Facil ity Vital Signs Date Time Vital Sign Value Performing Clinician Ginai lity 12-06-2022 08:57-0500 Body height 170.18 cm Daniel Adams Work Phone: [id number]-Iurxxy 320 Work Phone: 12-06-2022 08:57-0500 Body mass index (BMI) [Ratio] 37.75 kg/m2 Daniel Adams Work Phone: [id number]-Ztxywz 320 Work Phone: 12-06-2022 08:57-0500 Body surface area Derived from formula 2.19 m2 Daniel Adams Work Phone: [id number]-KYBAV-Mznizd 320 Work Phone: 12-06-2022 08:57-0500 Body weight 109.32 kg Daniel Adams Work Phone: [id number]-Wberxe 320 Work Phone: 12-06-2022 08:57-0500 Diastolic blood pressure 79 mm[Hg] Daniel Adams Work Phone: [id number]-Ptjldt 320 Work Phone: 12-06-2022 08:57-0500 Heart rate 88 /min Daniel Adams Work Phone: [id number]-Yspmku 320 Work Phone: 12-06-2022 08:57-0500 Systolic blood pressure 120 mm[Hg] Daniel Elan Angie Work Phone: [id number]-NOWRJ-Gbbrtn 320 Work Phone: 12-06-2022 08:57-0500 3 1 Daniel Elan Adams Work Phone: [id number]-Oedxyw 320 Work Phone: Encounters Encounter Date Encounter Type Care Provider Facility Start: 10-14-2023 End: 10-14-2023 ambulatory [place] [facility] Start: 10-07-2023 End: 10-07-2023 ambulatory [place] [facility] Start: 10-06-2023 End: 10-06-2023 ambulatory [facility] Start: 09-29-2023 End: 09-29-2023 ambulatory [facility] Start: 09-22-2023 End: 09-22-2023 ambulatory [facility] Start: 09-15-2023 End: 09-15-2023 ambulatory [place] [facility] Start: 09-01-2023 End: 09-01-2023 ambulatory [facility] Start: 08-19-2023 End: 08-19-2023 ambulatory [place] [facility] Start: 07-28-2023 End: 07-28-2023 ambulatory [place] [facility] Start: 07-23-2023 End: 07-23-2023 ambulatory [facility] Start: 07-23-2023 End: 07-23-2023 ambulatory [facility] Start: 07-11-2023 End: 07-11-2023 ambulatory [facility] Start: 06-10-2023 End: 06-10-2023 ambulatory RADHA MONTELONGOYDER [facility] Start: 02-28-2023 AUDIT Daniel Adams Work Phone: [id number]-Yhucvv 310 IVF Work Phone: Start: 02-18-2023 Patient encounter procedure Daniel Adams Work Phone: [id number]-[id number]-Chdqyd 310 IVF Work Phone: Start: 02-18-[address] Daniel Adams Facility:[id number] Start: 02-16-2023 Chart Update Daniel Adams Work Phone: [id number]-[id number]-Rexqux 310 IVF Work Phone: Start: 02-13-[address] Daniel Adams Facility:[id number] Start: 02-13-2023 Patient encounter procedure Daniel Adams Work Phone: [id number]-ECCEA-Kqtlxb 310 IVF Work Phone: Start: 02-13-2023 ULTRALAB, Provider: OBDASH IVF RDMS [id number] 1,MG OBGYN, Status: Pen, Time: 7:40 AM Daniel Adams Work Phone: EL-TXPWM-Xaiovx 310 IVF Work Phone: Start: 02-11-[address] Daniel Adams Facility:[id number] Start: 02-11-2023 Patient encounter procedure Daniel Adams Work Phone: [id number]-MMPPZ-Dgcfxj 310 IVF Work Phone: Start: 01-29-2023 AUDIT Daniel Adams Work Phone: [id number]-Yxndvt 310 IVF Work Phone: Start: 01-20-2023 Chart Update Daniel Adams Work Phone: BR-URVOG-Srmtji 310 IVF Work Phone: Start: 12-10-2022 Patient encounter procedure Daniel Adams Work Phone: [id number]-Wwaejj 310 IVF Work Phone: Start: 12-10-[address] Daniel Adams Facility:[id number] Start: 12-06-2022 Current tobacco non-user cad cap copd pv dm Daniel Adams Work Phone: MO-JSOQI-Iyyjyi 320 Work Phone: Start: 12-06-2022 ambulatory MD LOUIS BRADLEY Facility:[id number] Start: 08-13-2022 End: 08-13-[address] Work Phone: Functional Medicine Procedures Date Procedure Procedure Detail Performing Clinician Start: 12-10-2022 Antibody screen MD ROSALES BRADLEY Plan of Treatment Date Care Activity Detail Author Start: 02-11-2023 ULTRALAB, Provider: OBGYN IVF RDMS [id number] 1,MG OBGYN, Status: Pen, Time: 10:10 AM ULTRALAB, Provider: OBGYN IVF RDMS [id number] 1,MG OBGYN, Status: Pen, Time: 10:10 AM [id number]-Ebcvbi 310 IVF Work Phone: Start: 12-10-2022 ULTRASALIN, Provider: Lyssa Paulson, Status: Pen, Time: 2:30 PM ULTRASALIN, Provider: Lyssa Paulson, Status: Pen, Time: 2:30 PM BX-[id number]-Ihmxwr 320 Work Phone: Start: 12-10-2022 ULTRASALIN, Provider: Louis Bradley, Status: Pen, Time: 2:30 PM ULTRASALIN, Provider: Louis Bradley, Status: Pen, Time: 2:30 PM YT-LOXYP-Szwhff 320 Work Phone: Start: 08-06-2022 End: 10-06-2022 CBC W Auto Differential panel - Blood CBC + DIFF Lab Routine Kimberly's thyroiditis Malaise and fatigue Bloating Non-restorative sleep Lactating mother Nutritional deficiency Expected: 08/06/2022, Expires: 10/06/2022 [facility] Work Phone: Payers Date Payer Category Payer Unknown [id number] 2021 Unknown [id number] 1984 Unknown [id number] 2.16. [id number] 1984 Unknown [id number] 2.16. 840.1.580894.3.579.2.356 1984 Unknown [id number] 2.16. 840.1.984466.3.579.2.356 1984 Unknown [id number] 2.16. 840.1.697609.3.579.2.356 1984 Unknown [id number] 2.16. 840.1.612114.3.579.2.356 1984 Unknown [id number] 2.16. 840.1.845311.3.579.2.356 1984 Unknown [id number] 2.16. 840.1.318206.3.579.247 1984 Unknown [id number] 2.16. 840.1.455439.3.579.247 1984 Unknown [id number] 2.16. 840.1.539395.3.579.247 1984 Unknown [id number] 2.16. 840.1.158252.3.579.2.47 1984 Unknown [id number] 2.16. 840.1.129563.3.579.247 1984 Unknown [id number] 2.16. 840.1.369121.3.579.2.47 1984 Unknown [id number] 2.16. 840.1.574489.3.579.247 1984 Unknown [id number] 2.16. 840.1.630735.3.579.247 1984 Unknown [id number] 2.16. 840.1.776887.3.579.247 1984 Unknown [id number] 2.16. 840.1.593200.3.579.2.479 1984 Unknown [id number] 2.16. 840.1.515838.3.579.2.479 1984 Unknown [id number] 2.16. 840.1.615823.3.579.2.479 1984 Unknown [id number] 2.16. 840.1.718027.3.579.2.479 1984 Unknown [id number] 2.16. 840.1.059361.3.579.2.479 1984 Unknown [id number] 2.16. 840.1.011209.3.579.2.479 1984 Unknown [id number] 2.16. 840.1.947066.3.579.2.479 1984 Unknown [id number] 2.16. 840.1.255278.3.579.2.479 Unknown [id number] Unknown [id number] Social History Date Type Detail Facility Sex Assigned At Female [facility] Start: [facility] Work Phone: History of tobacco use Cigarette Smoker C [facility] Work Phone: Start: 01-20-2019 Tobacco use and exposure Smokeless tobacco non-user [facility] Work Phone: Start: 06-02-2022 Alcohol intake Current drinke r of alcohol (finding) [facility] Start: 01-20-2019 Tobacco Comment Socially/ [facility] Start: 10-27-2014 [facility] occ [facility] Start: 1985 Sex Assigned At Not on file C [facility] Former smoker Former smoker [id number]-UWHWS-Xyie an 320 Work Phone: Functional Status Date Assessment Result Facility NEGATED: Highlighted row Functional performance Functional status health issues are not documented Disease [facility] Work Phone: Mental Status Date Assessment Result Facility NEGATED: Highlighted row Cognitive function [Interpretation] Cognitive status health issues are not documented Disease -Reproductive Endocrinology[facility] n Work Phone: Clinical Notes 10-28-2018 to 08-13-[address] - 08/13/2022 9:00 AM EDTPatient InstructionsAbril Valdovinos APRN.CNP - 08/06/2022 1:28 PM EDT Note Date & Type Note Facility 08-13-2022 Note HNO ID: [id number] Author: Margy Handy RD Service: ? Author Type: Registered Dietitian Type: Progress Notes Filed: 08/13/2022 9:42 AM Note Text: [facility] Functional Medicine Nutrition Therapy: Initial Assessment (Individual) VIRTUALVISITPN Patient Name: Meghna Martinez Past Medical History: PAST MEDICAL HISTORY Diagnosis Date Environmental allergies 10/28/2018 Migraine with aura and without status migrainosus, not intractable 10/28/2018 NEGATIVE MEDICAL HISTORY Allergies: Patient has no known allergies. Current Medications/Supplements Current Outpatient Medications on File Prior to Visit Medication Sig Basic (Britt) Take 3 capsules by mouth once daily. OmegaGenics EPA-DHA 2400 (High Concentrate EPA/DHA liquid) ([employer]) Take one teaspoon (5 ml) daily with food Magnesium Glycinate 120mg (Pure Encapsulations) Take 3 capsules daily No current facility-administered medications on file prior to visit. 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 Migraines 2. Swelling joints 3. Multiple miscarriage 4. Wants to get 5. Back to fatigue, mental fog and back to square 1; needs maintenance. +MTHFR Nutrition Assessment (08/12/22) Digestive symptoms: Yes, not at rest; bloating, daily BM Other relevant symptoms: fatigue, brain fog, Food and Nutrition History (special diet(s) or nutritional program): Yes, Hx of SIBO treatment, Renew Food Plan. Currently GF, low dairy and sugar is a problem. Just started Britt, going to take Mg, Omegas, maybe D Adverse Reactions to Foods: Yes, alcohol , sugar makes body vibrate, dairy-achy joints, gluten-bloating, water retention, feel sick, migraine, inflammation/pain in joints Diet Recall: Yes B: oatmilk latte with double shot of espresso, maybe a little sugar S: turkey stick with cheese, pear, applesauce fruit squeezer L: Usana chocolate meal replacement shake D: protein, vegetable, starch (taco/quesadilla, hot sauce, side of apples, asparagus) Snacks: candy-pb cup, chocolate milk, cookies Beverages: water but not enough; am latte Biochemical and Laboratory Data Conventional/Advanced Testing No new relevant/available Laboratory Values Addressed: None addressed today Anthropometrics LMP 01/05/2019 (LMP Unknown) Last Height: Last 1 Encounter Ht Readings: Date: Ht: 01/29/2021 167.6 cm (5' 6 ) Last Weight: Last Wt 03/31/19 : 97.1 kg (214 lb) 01/20/19 : 97.9 kg (215 lb 14.4 oz) 10/28/18 : 100.1 kg (220 lb 11.2 oz) No current weight on file Nutrition Prescription: Energy: RMR can't be calculated - Weight unrecorded in last 120 days. Protein: 0.8g/kg Nutrients of Concern: D, Mg, Breckenridge 3, selenium, Zn Nutrition Diagnosis: Food and Nutrition Related Knowledge Deficit related to anti-inflammatory diet maintenance and fertility as evidenced by patient request for a nutrition re-evaluation. Learning Needs Assessment: Barriers to Learning: Ready learn Assessed motivation to learn: moderate Nutrition Intervention 08/12/2022: Current Nutrition Goal(s): reduce diet-related inflammation suspected as symptom trigger and improve nutritional inadequacies suspected as symptom or disease contributor Food Plan: Phytonutrient Spectrum GF, DF Nutrition Considerations for Preconception and an antiinflammatory diet: Our goal is to optimize health and work on nutrition before conception to improve reproductive health and prepare the body for conception. Improving nutrition in the preconception period could also improve the health of your child and aid in prevention of common chronic diseases down the line. It's never too early to get started, but ideally begin working on diet and lifestyle modifications at least 3-4 months before trying to conceive. Eat a balanced, whole-foods diet. A vitamin is important, but there is no replacement for an overall healthful dietary pattern. Eat a rainbow of foods daily. See our phytonutrient spectrum handout. In the [employer] Portal Create macronutrient balanced meals. For example, vegetable omelet (protein) cooked in ghee (fat) with tomatoes, terrazas peppers, and spinach (veggies) and a side of blueberries (carbohydrate). Focus on high quality food choices. Choosing wild-caught, grass-fed, organic options as applicable. Spice up meals with herbs and spices. Incorporate foods that support detoxification. Cruciferous Vegetables like broccoli, cabbage, cauliflower, brussels sprouts, arugula, and radishes. Vegetables in the Thiol family like garlic (more content not included)... [facility] 08-13-2022 Instructions Margy Handy, RD - 08/13/2022 9:41 AM EDT [facility] FOLLOW UP NUTRITION INSTRUCTIONS We recommend scheduling your Follow-up appointment at the end of your initial appointment. Nutrition Follow-up: In 8 weeks with Functional Medicine Registered Dietitian (Iesha Golden Sarah or Margy) Preparation for Follow-up: Complete a 3 day food record using the Diet, Nutrition and Lifestyle Journal from the Functional Nutrition Portal If follow-up is virtual: scan into [employer] or send to before joining your appointment If follow-up is in person: bring to your appointment Your Prescribed Nutrition Plan: Nutrition Considerations for Preconception and an antiinflammatory diet: Our goal is to optimize health and work on nutrition before conception to improve reproductive health and prepare the body for conception. Improving nutrition in the preconception period could also improve the health of your child and aid in prevention of common chronic diseases down the line. It's never too early to get started, but ideally begin working on diet and lifestyle modifications at least 3-4 months before trying to conceive. Eat a balanced, whole-foods diet. A vitamin is important, but there is no replacement for an overall healthful dietary pattern. Eat a rainbow of foods daily. See our phytonutrient spectrum handout. In the [employer] Portal Create macronutrient balanced meals. For example, vegetable omelet (protein) cooked in ghee (fat) with tomatoes, terrazas peppers, and spinach (veggies) and a side of blueberries (carbohydrate). Focus on high quality food choices. Choosing wild-caught, grass-fed, organic options as applicable. Spice up meals with herbs and spices. Incorporate foods that support detoxification. Cruciferous Vegetables like broccoli, cabbage, cauliflower, brussels sprouts, arugula, and radishes. Vegetables in the Thiol family like garlic and onions Dark leafy greens Breckenridge-3 fats (see #5) Berries and pomegranate seeds Eat probiotic rich foods daily. Optimal gut health is a crucial part to nutrient absorption. Note, some research suggests that probiotics during and decrease risk of depression. Probiotic foods include: sauerkraut, pickles, kimchi, kefir, yogurt, miso, natto, tempeh (choose refrigerated, 2T daily from 2 different types) Include prebiotic foods, which help to feed probiotics. These include: beans and lentils, whole grains, garlic, onions, asparagus, jerusalem artichoke, soy beans and green peas Avoid that contribute to inflammation. These could decrease your nutrient reserves and add to oxidative stress and cellular damage. Refined carbohydrates (white breads/pastas), added sugars, fried foods, trans fat, refined vegetable oils Foods you are sensitive to Limit or consider avoiding alcohol Increase omega-3 healthy fats in the diet. Fatty Fish (Boissevain, Tuna, Mackarel, Delaney, Anchovies and Sardines) Seeds, especially flax, quynh, and hemp seeds Nuts like walnuts, cashews, almonds Aim for at least 35 grams of fiber per day. Drink enough fluids and stay hydrated. Aim for 64 or more ounces of water per day. Don't forget about the importance of sleep, stress, movement, toxin exposure (plastics, cleaning up personal care products). 2. For Kimberly's Nutrition: -Maintain a nutrient dense, gluten-free eating plan with <5g added sugar per day, free of gluten and alcohol -Aim for frequent consumption of vegetables, dried fruit, nuts, and gluten-free muesli: associated with negative findings of TPO-Ab -Prioritize daily intake of selenium rich foods: aim for 100mg per day (2-3 brazil nuts per day would work) -Address suboptimal Vitamin D as needed Selenium is an essential trace element present in plant foods, seafood, meats, and enriched grains and dairy in many parts of the world. Plant sources of selenium may have variable selenium content, as their assimilation of this important nutrient depends on concentrations of the soil in which they are grown. Food, Standard Serving Size Average Selenium Content (mcg) Cypress nuts, 1 ounce 2380 Pork, 3 ounces 265 Reeder, 3 ounces 186 Tuna (yellowfin), 3 ounces 92 Oysters (Greenwood), 3 ounces 66 Clams, 3 ounces 54 Sardines, canned, 3.75 ounces 49 Halibut, 3 ounces 47 Shrimp, 3 ounces 42 Boissevain (wild caught), 3 ounces 31 Cod fillet ([place]), 3 ounces 28 Beef darien roast, 3 ounces 23 George seed butter, 1 Tbsp 17 Egg, whole 15 Derived From: Food Sources, Selenium, IFM 2019 Resources/Educational Materials Dietary Factors Associated with Plasma Thyroid Peroxidase and Thyroglobulin Antibodies: https://www.ncbi.nlm.nih.gov/pmc /articles/AXZ8586148/ 3. Utilize the Phytonutrient Spectrum Suite sent to e-mail to focus yourself and the family on achieving a rainbow of foods daily. 4. Ideas for Meal Replacement Shakes that are clean: Non-dairy Protein Powder Blends Brand Protein Source Sweetener and Fiber Source Vivo Life Perform Yellow Pea, Hemp, Plant-based BCAA Sweetener: Stevia Fiber source: Konjac Vivo Life Vegan Protein Unflavored Yellow Pea, Hemp, Pumpkin Seed Sweetener: none KOS Organic Plant Protein, Unflavored and Unsweetened Pea, Flax, Quinoa, Pumpkin, Quynh Sweetener: none Fiber source: Inulin, Pricilla Sunwarrior [place] Blend Organic Pea, Hemp, Goji Sweetener: Stevia [facility] Organic Plant Protein Smooth Unflavored 8.3oz (236g) Powder Pea, Quynh, Flax, Pumpkin Sweetener: none Fiber: Tapioca Fiber Plant Fusion Complete Plant Based Pea Protein Pea, Single Amino Acids, Artichoke, Amaranth, Quinoa, Algea Sweetener: Stevia, Lucuma, Monk Fruit, Yacon Kachava Plant-Based Superfood Meal Momo Inchi, Yellow Pea, Brown Rice, Amaranth, Quinoa Sweetener: Lo Pérez (Monk Fruit) Fiber: Quynh, Flax, Oat, Pricilla SFH plant protein Pea, Mushroom Blend Sweetener: Stevia [facility] Life Pea, Pumpkin, Brown Rice Sweetener: Allulose, Stevia Fiber: Prebiotic Resistant Starch Fiber Blend Single Source -Instagram Cordova Protein Powder, Unsweetened: https://www.Clifford Thames/bran d/protein -Breckenridge Nutrition Pumpkin Seed Protein Powder: https://FoxyTasksnutrition.Behind the Burner/produ cts/uhgbpvv-zbakraz-dddhge -Sprout Living Pumpkin Seed Protein Powder: https://www.Light Sciences Oncology/brittanie p/irniwsd-hshd-pepdrub-powder/ -Nutribiotic Rice Protein Powder: https://www.nutriPriceArea.com/rice -protein.html -Momo Inchi Protein Powder:https://wwwBoardganics /products/qvprk-cuvfb-kyoqdzd-po vajo-13-tttmias -PurePea by [employer] for BringShare : https://Akampus.Picwing.co m/rocwitg-ccrf-xhk-protein -Nutiva Hemp Protein: https://www.ZeroFOXivaBioniq Health/products/ kvuqqta-rygg-gvvp-protein -Vital Proteins Chicken Bone Broth Collagen: https://www.TAKOs.Behind the Burner/pr oducts/mucewso-wqgy-jfaiu-chicke s-hqin-jugfu-collagen -Sprout Living George Seed Protein:https://Light Sciences Oncology /products/uceccpc-yzpuvbnet-giad -ehcvrty-kxhvsa-yllqjnctmz-2 Pre-Made Plant Based Protein Shake -Orgain Plant-Based Protein Shake: https://Iceni Technology.com/collections/p rotein-shakes/products/20g-plant -banja-djhilvh-eaodm -Pirq Protein Shakes:https://www.Millenium Biologix / -Yashcelia Vegan Protein Shake (low sugar):https://Federated Media/prod ucts/protein-shakes/?cjq=5638 ADDITIONAL INSTRUCTIONS: How to Contact Your Functional Medicine Team (Open M-F 8am-5pm): 1. MyChart is the BEST form of communication to reach the Functional Medicine Team, see test results and request refills. Please allow 72 business hours for a response. Directions for signing up are included in your New Patient Folder. (Or you can go to [email or web address]) 2. For nutrition related questions or concerns, Corsairt message your physician and include Attn: Margy Handy RD at the top of the message. [employer] messaging is meant to support implementation of previously outlined nutrition care plans. In the interest of safe, effective and personalized care, you are asked to schedule a follow-up appointment if: It has been >6 months since your last nutrition appointment Your question requires reassessment or involves a new plan of care Your question concerns a new diagnosis, symptoms(s) and/or health concern Ordering Supplements: Supplements can be ordered from the [facility]'s Online Store: [email or web address] New patients to the Healthy Living Shop will need to enter the provider code FUNCTIONAL to register their account. documented in this encounter [facility] 08-13-2022 History of Present illness Narrative [facility] Nutrition Therapy: Initial Assessment (Individual) VIRTUALVISITPN Patient Name: Meghna Martinez Past Medical History: PAST MEDICAL HISTORY Diagnosis Date Environmental allergies 10/28/2018 Migraine with aura and without status migrainosus, not intractable 10/28/2018 NEGATIVE MEDICAL HISTORY Allergies: Patient has no known allergies. Current Medications/Supplements Current Outpatient Medications on File Prior to Visit Medication Sig Basic (Britt) Take 3 capsules by mouth once daily. OmegaGenics EPA-DHA 2400 (High Concentrate EPA/DHA liquid) (VIP Piano Club) Take one teaspoon (5 ml) daily with food Magnesium Glycinate 120mg (Pure Encapsulations) Take 3 capsules daily No current facility-administered medications on file prior to visit. 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 Migraines 2. Swelling joints 3. Multiple miscarriage 4. Wants to get 5. Back to fatigue, mental fog and back to square 1; needs maintenance. +MTHFR Nutrition Assessment (08/12/22) Digestive symptoms: Yes, not at rest; bloating, daily BM Other relevant symptoms: fatigue, brain fog, Food and Nutrition History (special diet(s) or nutritional program): Yes, Hx of SIBO treatment, Renew Food Plan. Currently GF, low dairy and sugar is a problem. Just started Britt, going to take Mg, Omegas, maybe D Adverse Reactions to Foods: Yes, alcohol , sugar makes body vibrate, dairy-achy joints, gluten-bloating, water retention, feel sick, migraine, inflammation/pain in joints Diet Recall: Yes B: oatmilk latte with double shot of espresso, maybe a little sugar S: turkey stick with cheese, pear, applesauce fruit squeezer L: Usana chocolate meal replacement shake D: protein, vegetable, starch (taco/quesadilla, hot sauce, side of apples, asparagus) Snacks: candy-pb cup, chocolate milk, cookies Beverages: water but not enough; am latte Biochemical and Laboratory Data Conventional/Advanced Testing No new relevant/available Laboratory Values Addressed: None addressed today Anthropometrics LMP 01/05/2019 (LMP Unknown) Last Height: Last 1 Encounter Ht Readings: Date: Ht: 01/29/2021 167.6 cm (5' 6 ) Last Weight: Last Wt 03/31/19 : 97.1 kg (214 lb) 01/20/19 : 97.9 kg (215 lb 14.4 oz) 10/28/18 : 100.1 kg (220 lb 11.2 oz) No current weight on file Nutrition Prescription: Energy: RMR can't be calculated - Weight unrecorded in last 120 days. Protein: 0.8g/kg Nutrients of Concern: D, Mg, Breckenridge 3, selenium, Zn Nutrition Diagnosis: Food and Nutrition Related Knowledge Deficit related to anti-inflammatory diet maintenance and fertility as evidenced by patient request for a nutrition re-evaluation. Learning Needs Assessment: Barriers to Learning: Ready learn Assessed motivation to learn: moderate Nutrition Intervention 08/12/2022: Current Nutrition Goal(s): reduce diet-related inflammation suspected as symptom trigger and improve nutritional inadequacies suspected as symptom or disease contributor Food Plan: Phytonutrient Spectrum GF, DF Nutrition Considerations for Preconception and an antiinflammatory diet: Our goal is to optimize health and work on nutrition before conception to improve reproductive health and prepare the body for conception. Improving nutrition in the preconception period could also improve the health of your child and aid in prevention of common chronic diseases down the line. It's never too early to get started, but ideally begin working on diet and lifestyle modifications at least 3-4 months before trying to conceive. Eat a balanced, whole-foods diet. A vitamin is important, but there is no replacement for an overall healthful dietary pattern. Eat a rainbow of foods daily. See our phytonutrient spectrum handout. In the [employer] Portal Create macronutrient balanced meals. For example, vegetable omelet (protein) cooked in ghee (fat) with tomatoes, terrazas peppers, and spinach (veggies) and a side of blueberries (carbohydrate). Focus on high quality food choices. Choosing wild-caught, grass-fed, organic options as applicable. Spice up meals with herbs and spices. Incorporate foods that support detoxification. Cruciferous Vegetables like broccoli, cabbage, cauliflower, brussels sprouts, arugula, and radishes. Vegetables in the Thiol family like garlic and onions Dark leafy greens Breckenridge-3 fats (see #5) Berries and pomegranate seeds Eat probiotic rich foods daily. Optimal gut health is a crucial part to nutrient absorption. Note, some research suggests that probiotics during and decrease risk of depression. Probiotic foods include: sauerkraut, pickles, kimchi, kefir, yogurt, miso, natto, tempeh (choose refrigerated, 2T daily from 2 different types) Include prebiotic foods, which help to feed probiotics. These include: beans and lentils, whole grains, garlic, onions, asparagus, jerusalem artichoke, soy beans and green peas Avoid that contribute to inflammation. These could decrease your nutrient reserves and add to oxidative stress and cellular damage. Refined carbohydrates (white breads/pastas), added sugars, fried foods, trans fat, refined vegetable oils Foods you are sensitive to Limit or consider avoiding alcohol Increase omega-3 healthy fats in the diet. Fatty Fish (Boissevain, Tuna, Mackarel, Delaney, Anchovies and Sardines) Seeds, especially flax, quynh, and hemp seeds Nuts like walnuts, cashews, almonds Aim for at least 35 grams of fiber per day. Drink enough fluids and stay hydrated. Aim for 64 or more ounces of water per day. Don't forget about the importance of sleep, stress, movement, toxin exposure (plastics, cleaning up personal care products). 2. For Kimberly's Nutrition: -Maintain a nutrient dense, gluten-free eating plan with <5g added sugar per day, free of gluten and alcohol -Aim for frequent consumption of vegetables, dried fruit, nuts, and gluten-free muesli: associated with negative findings of TPO-Ab -Prioritize daily intake of selenium rich foods: aim for 100mg per day (2-3 brazil nuts per day would work) -Address suboptimal Vitamin D as needed Selenium is an essential trace element present in plant foods, seafood, meats, and enriched grains and dairy in many parts of the world. Plant sources of selenium may have variable selenium content, as their assimilation of this important nutrient depends on concentrations of the soil in which they are grown. Food, Standard Serving Size Average Selenium Content (mcg) Cypress nuts, 1 ounce 2380 Pork, 3 ounces 265 Reeder, 3 ounces 186 Tuna (yellowfin), 3 ounces 92 Oysters ([place]), 3 ounces 66 Clams, 3 ounces 54 Sardines, canned, 3.75 ounces 49 Halibut, 3 ounces 47 Shrimp, 3 ounces 42 Boissevain (wild caught), 3 ounces 31 Cod fillet ([place]), 3 ounces 28 Beef darien roast, 3 ounces 23 George seed butter, 1 Tbsp 17 Egg, whole 15 Derived From: Food Sources, Selenium, IFM 2020 Resources/Educational Materials Dietary Factors Associated with Plasma Thyroid Peroxidase and Thyroglobulin Antibodies: https://www.ncbi.nlm.nih.gov/pmc /articles/IWN1820885/ 3. Utilize the Phytonutrient Spectrum Suite sent to e-mail to focus yourself and the family on achieving a rainbow of foods daily. 4. Ideas for Meal Replacement Shakes that are clean: Non-dairy Protein Powder Blends Brand Protein Source Sweetener and Fiber Source Vivo Life Perform Yellow Pea, Hemp, Plant-based BCAA Sweetener: Stevia Fiber source: Konjac Vivo Life Vegan Protein Unflavored Yellow Pea, Hemp, Pumpkin Seed Sweetener: none KOS Organic Plant Protein, Unflavored and Unsweetened Pea, Flax, Quinoa, Pumpkin, Quynh Sweetener: none Fiber source: Inulin, Pricilla Sunwarrior Rowlett Blend Organic Pea, Hemp, Goji Sweetener: Stevia [facility] Organic Plant Protein Smooth Unflavored 8.3oz (236g) Powder Pea, Quynh, Flax, Pumpkin Sweetener: none Fiber: Tapioca Fiber Plant Fusion Complete Plant Based Pea Protein Pea, Single Amino Acids, Artichoke, Amaranth, Quinoa, Algea Sweetener: Stevia, Lucuma, Monk Fruit, Yacon Kachava Plant-Based Superfood Meal Momo Inchi, Yellow Pea, Brown Rice, Amaranth, Quinoa Sweetener: Lo Pérez (Monk Fruit) Fiber: Quynh, Flax, Oat, Pricilla SFH plant protein Pea, Mushroom Blend Sweetener: Stevia Muniq Life Pea, Pumpkin, Brown Rice Sweetener: Allulose, Stevia Fiber: Prebiotic Resistant Starch Fiber Blend Single Source -Instagram Cordova Protein Powder, Unsweetened: https://www.Clifford Thames/bran d/protein -Breckenridge Nutrition Pumpkin Seed Protein Powder: https://omeganutrition.com/produ cts/fpihnxe-snwvwad-gheaom -Sprout Living Pumpkin Seed Protein Powder: https://www.Light Sciences Oncology/brittanie p/saygbrf-heby-jmrrvec-powder/ -Nutribiotic Rice Protein Powder: https://www.nutribiotic.com/rice -protein.html -Momo Inchi Protein Powder:https://wwwBoardganics /products/lwost-qohcy-sdmabzl-po xclv-06-uonjkec -PurePea by Targeter App : https://Akampus.Picwing.Grimm Bros m/mwfhwhc-waob-bxl-protein -Nutiva Hemp Protein: https://wwwechoecho/products/ pinoyxp-accl-xxwv-protein -Vital Proteins Chicken Bone Broth Collagen: https://www.Jumpzter/pr oducts/vxqyfyk-zmgi-hbote-chicke w-nono-yyngc-collagen -Sprout Living George Seed Protein:https://Light Sciences Oncology /products/yegocpx-ussusvqrg-ttcn -qaulqqh-epjgdy-kvqymujynp-2 Pre-Made Plant Based Protein Shake -OmegaGenesis Plant-Based Protein Shake: https://Iceni Technology.Behind the Burner/collections/p rotein-shakes/products/20g-plant -hwicb-rbcksor-temax -Pirq Protein Shakes:https://www.Millenium Biologix / -Nevin Vegan Protein Shake (low sugar):https://Federated Media/prod ucts/protein-shakes/?yzj=3571 Resources/Educational Materials available in [employer] Portal and embedded above Adherence Potential to Goals/Care Plan: Moderate Nutrition Monitoring & Evaluation: adherence to plan Criteria: Laboratory Data, MSQ, Dietary Recall Follow up: 8 weeks Time Spent with patient: 38 minutes Consult Billing Type: Initial assessment/15 minutes, 3 increment(s), 38 minutes Number of Increments: 3 (45 minutes) Referred/Supervised by: Abril Valdovinos NP Signed by: Margy Handy RD documented in this encounter [facility] 08-06-2022 Note HNO ID: [id number] Author: Abril Valdovinos APRN.INVESTOR RELATIONS ANALYST Service: ? Author Type: Nurse Practitioner Type: Progress Notes Filed: 08/06/2022 2:00 PM Note Text: Virtual Follow-up Visit Patient: Meghna Martinez There is no height or weight on file to calculate BMI. RMR can't be calculated - Weight unrecorded in last 120 days. Waist measurement: No waist measurement recorded. BP: ALLERGIES No Known Allergies Current Outpatient Medications on File Prior to Visit Medication Sig B-Complex Plus (Pure Encapsulations) - 1qD stress/energy/hormones/detox/kaia ght loss Take 1 capsule by mouth once daily. Vitamin D Palacios (Targeter App) Take 1 capsule by mouth daily with food. One Breckenridge (Pure Encapsulation) -- fish oil Take 2 capsules by mouth daily with food. MegaSporebiotic (Microbiome Labs) Start with 1/2 capsule or 1 full capsule with food and slowly increase to 2 capsules per day using the following protocol. Week 1-1 capsule every other day Week 2-1 capsule daily Week 3-2 capsules daily If 1 capsule every other day is too strong, try starting with 1/2 capsules or even 1/4 capsule in some cases. Possible symptoms may include abdominal cramping, loose stools, and changes in bowel movements. Though these symptoms may be uncomfortable, they are a sign that the product is working! Symptoms should resolve within 2-3 days thyroid (ARMOUR THYROID) 15 mg tablet Take 1 tablet by mouth once daily. No current facility-administered medications on file prior to visit. PAST MEDICAL HISTORY Diagnosis Date Environmental allergies 10/28/2018 Migraine with aura and without status migrainosus, not intractable 10/28/2018 NEGATIVE MEDICAL HISTORY PAST SURGICAL HISTORY Procedure Laterality Date CHALAZION EXCISION, SINGLE 2005 right eye KNEE SURGERY HX 2006 acl graft- right knee Social History Tobacco Use Smoking status: Some Days Types: Cigarettes Smokeless tobacco: Never Tobacco comments: Socially/ Substance Use Topics Alcohol use: Yes Comment: occ Drug use: No Functional Medicine Timeline MSQ: Patient Entered Questionnaire PROMIS Scale T-Scores -- HIGHER SCORES BETTER PROMIS Global Health - (T-Scores - the mean of general population = 50. Five points is a clinically meaningful difference.) 03/31/2019 11/19/2020 08/06/2022 Physical T-Score 54.1 44.9 44.9 Mental T-Score 50.8 50.8 53.3 Depression Screening: PHQ-9 Self-Harm (Item 9) response options: 0 Not at all 1 Several days 2 More than half the days 3 Nearly every day PHQ-9 Levels: 0-4 Minimal depression 5-9 Mild depression 10-14 Moderate depression 15-19 Moderately severe depression 20-27 Severe depression August 06, 2022 Abril Valdovinos APRN.INVESTOR RELATIONS ANALYST Subjective: Goal: Update Progress, Review Testing/Labs Last seen by Dr Gallardo 01/2021- not taking any supplements or following plan. Previously taking probiotics, stopped last week. Prev treated for SIBO, concerned sx returned d/t bloating Food cravings, weight gain. Hoping to get in next 6 mos. 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 She enjoyed her and her baby is one year old. She has fallen off the band wagon and wants a rest. She wants to get her body back in shape. Currently she has joint pain in her hands, sugar cravings, brain fog. She is not sleeping well due to baby; she only gets 6 hours of sleep b/c is co sleeping. She is nursing still. BM is every other day, + bloating + gas, + headaches. Period has not come yet. Nursing 4x/day and at night and pumps Subjective: 03/31/19 33 yo f with sibo feeling better. She is for heavy metal labs. She feels well. Her seasonal allergies are great. She is eliminating daily, sleeping well, she has been having some stress but wants to know if can try. Subjective: 01/20/19 33 yo f with for follow up. She wants to get . She still has mushy stools, pains before eliminating; bloating is better. She has been candibactin arb/br for one month They have embryos frozen. Would like to do IVF if ready. They did do progesterone shots but miscarried at 8 weeks. Positive breath test 20 min: Hydrogen 2 ppm Methane 5 ppm Total 7 ppm 40 min: Hydrogen 1 ppm Methane 6 ppm Total 7 ppm 60 min: Hydrogen 6 ppm Methane 5 ppm Total 11 ppm 80 min: Hydrogen 16 ppm Methane 3 ppm Total 19 ppm 100 min: Hydrogen 32 ppm Methane 5 ppm Total 37 ppm 120 min: Hydrogen 34 ppm Methane 4 ppm Total 38 ppm 140 min: Hydrogen 47 ppm Methane 3 ppm Total 50 ppm 160 min: Hydrogen 50 ppm Methane 3 ppm Total 53 ppm 180 min: Hydrogen 42 ppm Methane 3 ppm Total 45 ppm 10/28/18 Initial visit - Health Goals What Do You Hope To Achieve In Your Visi (more content not included)... [facility] 08-06-2022 Instructions Abril Valdovinos APRN.[facility] - 08/06/2022 2:00 PM EDT Plan and Lifestyle Prescription Plan/Instructions/Resources: Repeat breath testing Schedule breath test to evaluate for SIBO Lactulose breath test is available at [facility] Main campus only Please call [phone]. to schedule and receive instructions about how to prepare for the breath test Please be sure to follow instructions closely Update CFM labs - orders placed, can have labs drawn at any [facility] lab Start supplements: Britt , Magnesium glycinate, Breckenridge and Recommendations [employer] for well researched and information [email or web address] Also read Be Fruitful: The Essential Guide to Maximizing Fertility and Giving to a Healthy Child By Africa Dozier MD Integrative Physician A thorough guide to fertility that encompasses all aspects of female well-being to help women prepare their bodies for easy conception, , and the delivery of healthy babies. Real Food for : The Science and [place] of Optimal Nutrition By Shannon Conte Follow up with nutrition and health community living coach for one on one guidance Recommend Core diet- or per RD recommendations Medications/Supplements Recommended: Medication orders placed this encounter Basic (Britt) Sig: Take 3 capsules by mouth once daily. Magnesium Glycinate 120mg (Pure Encapsulations) Sig: Take 3 capsules daily OmegaGenics EPA-DHA 2400 (High Concentrate EPA/DHA liquid) (Supremexics) Sig: Take one teaspoon (5 ml) daily with food I recommend the supplements from the [facility] Online Store as we have thoroughly evaluated the research and use only highest quality supplements. Get started by following four easy steps: Visit the following webpage: [email or web address] Create an account: Enter your first name, last name, email address which will be your username Create password Select a referring physician from the dropdown box. If they are not listed, select other If you are a new patient, enter the following provider code: Functional Order recommended supplementation Enter the supplement name in the search box Add all supplements to your cart and proceed to checkout. Orders of $100 or more qualify for free shipping. *Please allow 5-7 business days for delivery. For issues with your MRN please call [phone] Provider Code: Functional (not case sensitive) Future Plans: Follow up: Please schedule a follow up visit with the following Caregivers: Provider: 6weeks, Yarn Bleaching Machine Operator: 4 weeks, and Health Developmental Therapist: 4 weeks LIFESTYLE PRESCRIPTION Functional Nutrition: Per topology teacher Sleep: Sleep goal for most adults is a minimum of 7-9 hours nightly. Exercise Prescription: Numerous studies confirm the benefits of regular moderate aerobic exercise (walking, swimming, elliptical machine, cycling, etc.) for 30 min 5 days per week (150 min goal). Stress Management: 1) Please look into this Heart Rate Variability BioFeedback Tool (www.heartmath.org). 2) A regular, daily meditation practice of at least 15-20 minutes will change your brain--as well as your genes! Behavioral Health Therapist: If I recommended counseling or individual therapy, please schedule an individual appointment with our Functional Medicine Behavioral Health Therapist after your visit today. The Behavioral Health Therapist helps patients identify and understand feelings and behaviors, experience the process of making positive change, and gain healthy coping skills. Health Coaching: Please consider scheduling with our [facility] health coaches for a phone or virtual visit for accountability, goal setting and help with behavior gear changer the next 6-8 weeks to be successful with your goals. [phone]. Smart phone apps to begin a meditative practice: Headspace (free for first 10 days) Insight Meditation Timer- (Free)-Great all-around dylan to use for guided meditations of many different types and lengths or just to use as a tool to time and track your meditation practice. This is my absolute favorite! Calm- (Free) Walking Meditations-($1.99)- Get your walk AND meditation done together. A good way to start out for individuals who feel they just can't sit still to begin a meditative practice. During the next 6-8 weeks you'll be working on your diet plan discussed with our topology teacher, allowing for gentle detoxification and decreasing inflammation - while we are gathering your lab results and combining those with your complete history to formulate a very personalized treatment plan. LAB results: Due to the complexity of the testing performed, we are not able to review labs via [employer] or over the phone, but please know, if any of your labs are critical we will contact you. Otherwise, we will review all your labs at your next visit. We will go over a lot of information during your follow up visit - so please be well-rested and you may want to bring someone with you, if possible. Also make sure to schedule with the topology teacher (this will not happen automatically) as you did with your first visit so that she can review nutritional aspects of your treatment plan. By your 3rd visit, as things are improving, we will likely transition you to one of our very capable Certified Nurse Practitioners/Physician Assistants for further follow-up. Potential future labs: Any [employer] labs ordered take about 4 weeks to return. Do them as soon as possible so that we have the results before your next appointment. You can access them on the [employer] website and it can be beneficial if you review them prior to your next visit. [email or web address]. Read about NutrEval if this was ordered. Warmly, *Abril Valdovinos APRN.RIYA documented in this encounter [facility] 08-06-2022 History of Present illness Narrative Virtual Follow-up Visit Patient: Meghna Martinez There is no height or weight on file to calculate BMI. RMR can't be calculated - Weight unrecorded in last 120 days. Waist measurement: No waist measurement recorded. BP: ALLERGIES No Known Allergies Current Outpatient Medications on File Prior to Visit Medication Sig B-Complex Plus (Pure Encapsulations) - 1qD stress/energy/hormones/detox/kaia ght loss Take 1 capsule by mouth once daily. Vitamin D Palacios ([employer] for [employer]) Take 1 capsule by mouth daily with food. One Breckenridge (Pure Encapsulation) -- fish oil Take 2 capsules by mouth daily with food. MegaSporebiotic (Microbi[employer]) Start with 1/2 capsule or 1 full capsule with food and slowly increase to 2 capsules per day using the following protocol. Week 1-1 capsule every other day Week 2-1 capsule daily Week 3-2 capsules daily If 1 capsule every other day is too strong, try starting with 1/2 capsules or even 1/4 capsule in some cases. Possible symptoms may include abdominal cramping, loose stools, and changes in bowel movements. Though these symptoms may be uncomfortable, they are a sign that the product is working! Symptoms should resolve within 2-3 days thyroid (ARMOUR THYROID) 15 mg tablet Take 1 tablet by mouth once daily. No current facility-administered medications on file prior to visit. PAST MEDICAL HISTORY Diagnosis Date Environmental allergies 10/28/2018 Migraine with aura and without status migrainosus, not intractable 10/28/2018 NEGATIVE MEDICAL HISTORY PAST SURGICAL HISTORY Procedure Laterality Date CHALAZION EXCISION, SINGLE 2005 right eye KNEE SURGERY HX 2006 acl graft- right knee Social History Tobacco Use Smoking status: Some Days Types: Cigarettes Smokeless tobacco: Never Tobacco comments: Socially/ Substance Use Topics Alcohol use: Yes Comment: occ Drug use: No Functional Medicine Timeline MSQ: Patient Entered Questionnaire PROMIS Scale T-Scores -- HIGHER SCORES BETTER PROMIS Global Health - (T-Scores - the mean of general population = 50. Five points is a clinically meaningful difference.) 03/31/2019 11/19/2020 08/06/2022 Physical T-Score 54.1 44.9 44.9 Mental T-Score 50.8 50.8 53.3 Depression Screening: PHQ-9 Self-Harm (Item 9) response options: 0 Not at all 1 Several days 2 More than half the days 3 Nearly every day PHQ-9 Levels: 0-4 Minimal depression 5-9 Mild depression 10-14 Moderate depression 15-19 Moderately severe depression 20- Severe depression August 06, 2022 Abril Valdovinos APRN.INVESTOR RELATIONS ANALYST Subjective: Goal: Update Progress, Review Testing/Labs Last seen by Dr Gallardo 01/2021- not taking any supplements or following plan. Previously taking probiotics, stopped last week. Prev treated for SIBO, concerned sx returned d/t bloating Food cravings, weight gain. Hoping to get in next 6 mos. 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 She enjoyed her and her baby is one year old. She has fallen off the band wagon and wants a rest. She wants to get her body back in shape. Currently she has joint pain in her hands, sugar cravings, brain fog. She is not sleeping well due to baby; she only gets 6 hours of sleep b/c is co sleeping. She is nursing still. BM is every other day, + bloating + gas, + headaches. Period has not come yet. Nursing 4x/day and at night and pumps Subjective: 03/31/19 33 yo f with sibo feeling better. She is for heavy metal labs. She feels well. Her seasonal allergies are great. She is eliminating daily, sleeping well, she has been having some stress but wants to know if can try. Subjective: 01/20/19 33 yo f with for follow up. She wants to get . She still has mushy stools, pains before eliminating; bloating is better. She has been candibactin arb/br for one month They have embryos frozen. Would like to do IVF if ready. They did do progesterone shots but miscarried at 8 weeks. Positive breath test 20 min: Hydrogen 2 ppm Methane 5 ppm Total 7 ppm 40 min: Hydrogen 1 ppm Methane 6 ppm Total 7 ppm 60 min: Hydrogen 6 ppm Methane 5 ppm Total 11 ppm 80 min: Hydrogen 16 ppm Methane 3 ppm Total 19 ppm 100 min: Hydrogen 32 ppm Methane 5 ppm Total 37 ppm 120 min: Hydrogen 34 ppm Methane 4 ppm Total 38 ppm 140 min: Hydrogen 47 ppm Methane 3 ppm Total 50 ppm 160 min: Hydrogen 50 ppm Methane 3 ppm Total 53 ppm 180 min: Hydrogen 42 ppm Methane 3 ppm Total 45 ppm 10/28/18 Initial visit - Health Goals What Do You Hope To Achieve In Your Visit With Us? : With Live When Was The Last Time You Monon Well? : I Feel Good Most Of The Time But Monon Fantastic While Eating AIP Diet In August. Did Something Trigger Your Change In Health? : Two Miscarriages, Testing High For TPO Antibodies What Makes You Feel Better? : Eating Gluten Free, Dairy Free, Reduced Sugar What Makes You Feel Worse? : Sugar Causes Headaches, Dairy Causes Bloating And Stomach Pains And Body Aches. Gluten Causes Migraines An Bloating. How Does Your Condition Affect You? : I Have Not Been Able To Carry A Past 8 Weeks. What Do You Think Is Happening And Why? : I Think That I Am Discovering There Is Something More Intricate Happening With My Thyroid Which Is Related To My Food Intolerances And My Miscarriages. I Believe Something Happens At 8 Weeks Of When The Placenta Barrier Opens Up That My Body Is Terminating The Pregnancies. What Do You Feel Needs To Happen For You To Get Better? : I Feel I Need To Heal My Gut, Understand What Is Causing My Body To Have Inflammation. This Overall Will Help My Body Feel Better. But, The End All Goal Is To Be Able To Carry A To Term With A Live . Ongoing Health Concerns : 1 -Migraines - Date Started :10/20/2011 Severity :Moderate - Prior Treatment :No 2 - Swelling Joints - Date Started :07/20/2016 - Severity :Mild - Prior Treatment :No 3 -Miscarriage - Date Started :07/19/2016 - Prior Treatment :Yes - Success Of Prior Treatment :Somewhat Successful 4 - Miscarriage - Date Started :05/20/2018 - Prior Treatment :es - Success Of Prior Treatment :Not Successful 32 yo f who has been trying to get for four years. She has done iui 15 times. She achieved at 7th one but miscarried at 8 weeks. After 15 tries, she did IVF and got but lost 8 weeks. 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 She normally feels well. She denies any pain, fatigue. She is to a Women and wants to try but when healthier. Her migraines comes after gluten/dairy. Usually mild to moderate, hearing sensitivity with them, aura, usually just sleeps them off. Once per year are the severe ones, mild to moderate 4x/month. They are not related to menses. Her swelling in her joints is worse with gluten and barometric pressure changes. 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 spouse with back pain, off work 2018 miscarriage, going through adoption, mom got sick, kimberly's diagnosed, infidelity by partner Sleep: good, averages 7 hours, well rested Bowel Movements: long snakes daily Stress infidelity, finances and too attached to 14 month old foster child Current Diet: gf/df shx smoking 2012 Drinks 1etoh/day No drugs to lesbian partner Antecedents: hx, recurrent antibiotics Family history: Mother: 67 poor health cad, obesity thyroid, depression Father:67 fair health cad obesity allergies MGM: 82 of alzheimer's dm MGF: 42 of alcoholism PGM: 86 of alzheimer's htn PGF: 46 of alcoholism Triggering Events/Mediators: infertility Stress, sleep, nutritional insufficiency, food intolerances Recurrent antibiotics, nsaids, infertility Review of Systems: See above but was otherwise noncontributory Objective: Temp 97.6 Ht 5' 6 (1.68m) [facility] 01/05/2019 Objective: [facility] 01/05/2019 Bioelectrical Impedance Analysis Results by [employer] Recent Results from: 08/06/22 at 13:58 PM BMI: 34.54 kg/m General Test Result Range Phase Angle (PA) Basal Metabolic Rate (BMR) Fat & Fat Free Mass Test Result Range Fat (lbs) Fat % Fat Free Mass (FFM) lbs Total Body Water Test Result Range TBW (lbs) TBW % of FFM Intracellular Water Test Result Range ICW (lbs) ICW % of FFM Extracellular Water Test Result Range ECW (lbs) ECW % of FFM Virtual Physical Exam: Objective: General: A&Ox4, nad Skull: Oval Hair Distribution: Normal FACE Eyebrows: Normal Lips/Chin: Normal Color: Normal Texture: Normal EYES/PERIORBITAL EXAM Eyelids: Normal Conjunctiva: Normal MOUTH Jaw Movement: Symmetric (No Pain) Lips: Normal NECK Symmetry: Symmetrical Midline Trachea: Symmetrical NEURO: Cognition and cranial nerves III-XII grossly intact SKIN Color: Normal Periorifice: Normal Lesions: None CURRENT Functional Medicine Assessment/ PLAN Nutritional Assessment GF/DF Vitamin d 29 Nutrieval DATE High need Ala, b2, b3 Moderate need Vit c, b1, b6, b7, b12 Amino Acids Arginine 474, glutamine 519, methionine 96, tyrosine 150 Malabsorption markers José Luis, mild 30hpaa, benzoic acid Detox Markers Both moderately elevated Yeast markers Citramalic acid Breckenridge 3 Index 3.6 Oxidative stress 688 glutathione L Lipid peroxide 7. 5H Heavy metals normal Other Digestive Function Eliminates other day Bloating Gas H/o sibo Inflammation/Immune Function Kimberly's Environmental allergies-better Energy Production Migraines occasionally ADD-worse Fatigue Sleep 6 hours Detoxification Function Water leaks/mold Renovations MTHFR compound heterozygote COMT [id number] Mary Heavy metal test Toxic element Normal sulfur normal Lead < 1.4 4.0 Mercury < 2.19 2.06 Finley 0.033 0.120 gadolinium 0.019 Hormonal Assessment Miscarriage x2 Desiring fertility for baby #2 Hypothyroidism Results for MEGHNA MARTINEZ ( ) as of 01/18/2019 16:01 Ref. 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 to schedule and receive instructions about how to prepare for the breath test Please be sure to follow instructions closely Update CFM labs - orders placed, can have labs drawn at any [facility] lab Start supplements: Britt , Magnesium glycinate, Breckenridge and Recommendations [employer] for well researched and information [email or web address] Also read Be Fruitful: The Essential Guide to Maximizing Fertility and Giving to a Healthy Child By Africa Dozier MD Integrative Physician A thorough guide to fertility that encompasses all aspects of female well-being to help women prepare their bodies for easy conception, , and the delivery of healthy babies. Real Food for : The Science and [place] of Optimal Nutrition By Shannon Conte Follow up with nutrition and health community living coach for one on one guidance Recommend Core diet- or per RD recommendations Medications/Supplements Recommended: Medication orders placed this encounter Basic (Britt) Sig: Take 3 capsules by mouth once daily. Magnesium Glycinate 120mg (Pure Encapsulations) Sig: Take 3 capsules daily OmegaGenics EPA-DHA 2400 (High Concentrate EPA/DHA liquid) (Metagenics) Sig: Take one teaspoon (5 ml) daily with food I recommend the supplements from the [facility] Online Store as we have thoroughly evaluated the research and use only highest quality supplements. Get started by following four easy steps: Visit the following webpage: [email or web address] Create an account: Enter your first name, last name, email address which will be your username Create password Select a referring physician from the dropdown box. If they are not listed, select other If you are a new patient, enter the following provider code: Functional Order recommended supplementation Enter the supplement name in the search box Add all supplements to your cart and proceed to checkout. Orders of $100 or more qualify for free shipping. *Please allow 5-7 business days for delivery. For issues with your MRN please call [phone] Provider Code: Functional (not case sensitive) Future Plans: Follow up: Please schedule a follow up visit with the following Caregivers: Provider: 6weeks, Yarn Bleaching Machine Operator: 4 weeks, and Health Developmental Therapist: 4 weeks LIFESTYLE PRESCRIPTION Functional Nutrition: Per topology teacher Sleep: Sleep goal for most adults is a minimum of 7-9 hours nightly. Exercise Prescription: Numerous studies confirm the benefits of regular moderate aerobic exercise (walking, swimming, elliptical machine, cycling, etc.) for 30 min 5 days per week (150 min goal). Stress Management: 1) Please look into this Heart Rate Variability BioFeedback Tool (www.heartmath.org). 2) A regular, daily meditation practice of at least 15-20 minutes will change your brain--as well as your genes! Behavioral Health Therapist: If I recommended counseling or individual therapy, please schedule an individual appointment with our [facility] Behavioral Health Therapist after your visit today. The Behavioral Health Therapist helps patients identify and understand feelings and behaviors, experience the process of making positive change, and gain healthy coping skills. Health Coaching: Please consider scheduling with our [place] [facility] health coaches for a phone or virtual visit for accountability, goal setting and help with behavior gear changer the next 6-8 weeks to be successful with your goals. [phone]. Smart phone apps to begin a meditative practice: Headspace (free for first 10 days) Insight Meditation Timer- (Free)-Great all-around dylan to use for guided meditations of many different types and lengths or just to use as a tool to time and track your meditation practice. This is my absolute favorite! Calm- (Free) Walking Meditations-($1.99)- Get your walk AND meditation done together. A good way to start out for individuals who feel they just can't sit still to begin a meditative practice. During the next 6-8 weeks you'll be working on your diet plan discussed with our topology teacher, allowing for gentle detoxification and decreasing inflammation - while we are gathering your lab results and combining those with your complete history to formulate a very personalized treatment plan. LAB results: Due to the complexity of the testing performed, we are not able to review labs via [employer] or over the phone, but please know, if any of your labs are critical we will contact you. Otherwise, we will review all your labs at your next visit. We will go over a lot of information during your follow up visit - so please be well-rested and you may want to bring someone with you, if possible. Also make sure to schedule with the topology teacher (this will not happen automatically) as you did with your first visit so that she can review nutritional aspects of your treatment plan. By your 3rd visit, as things are improving, we will likely transition you to one of our very capable Certified Nurse Practitioners/Physician Assistants for further follow-up. Potential future labs: Any Mary labs ordered take about 4 weeks to return. Do them as soon as possible so that we have the results before your next appointment. You can access them on the [employer] website and it can be beneficial if you review them prior to your next visit. [email or web address]. Read about NutrEval if this was ordered. *Abril Valdovinos APRN.RIYA I spent a total of 30 minutes on the date of the service which included preparing to see the patient, [id number] patient care, completing clinical documentation, obtaining and/or reviewing separately obtained history, performing a medically appropriate examination, counseling and educating the patient/family/caregiver, and ordering medications, tests, or procedures. documented in this encounter [facility] 12-20-2021 Hospital Discharge instructions Patient Education 12/20/2021 17:56:00 Pneumonia (Adult) Pneumonia (Adult) Pneumonia is an infection deep within the lungs. It is in the small air sacs (alveoli). Pneumonia may be caused by a virus or bacteria. Pneumonia caused by bacteria is usually treated with an antibiotic. Severe cases may need to be treated in the hospital. Milder cases can be treated at home. Symptoms usually start to get better during the first 2 days of treatment. Home care Follow these guidelines when caring for yourself at home: Rest at home for the first 2 to 3 days, or until you feel stronger. Don t let yourself get overly tired when you go back to your activities. Stay away from cigarette smoke yours or other people s. You may use acetaminophen or ibuprofen to control fever or pain, unless another medicine was prescribed. If you have chronic liver or kidney disease, talk with your healthcare provider before using these medicines. Also talk with your provider if you ve had a stomach ulcer or gastrointestinal bleeding. Don t give aspirin to anyone younger than 18 years of age who is ill with a fever. It may cause severe liver damage. Your appetite may be poor, so a light diet is fine. Drink 6 to 8 glasses of fluids every day to make sure you are getting enough fluids. Beverages can include water, sport drinks, sodas without caffeine, juices, tea, or soup. Fluids will help loosen secretions in the lung. This will make it easier for you to cough up the phlegm (sputum). If you also have heart or kidney disease, check with your healthcare provider before you drink extra fluids. Take antibiotic medicine prescribed until it is all gone, even if you are feeling better after a few days. Follow-up care Follow up with your healthcare provider in the next 2 to 3 days, or as advised. This is to be sure the medicine is helping you get better. If you are 65 or older, you should get a pneumococcal vaccine and a yearly flu (influenza) shot. You should also get these vaccines if you have chronic lung disease like asthma, emphysema, or COPD. Recently, a second type of pneumonia vaccine has become available for everyone over 65 years old. This is in addition to the previous vaccine. Ask your provider about this. When to seek medical advice Call your healthcare provider right away if any of these occur: You don t get better within the first 48 hours of treatment Shortness of breath gets worse Rapid breathing (more than 25 breaths per minute) Coughing up blood Chest pain gets worse with breathing Fever of 100.4 F (38 C) or higher that doesn t get better with fever medicine Weakness, dizziness, or fainting that gets worse Thirst or dry mouth that gets worse Sinus pain, headache, or a stiff neck Chest pain not caused by coughing [phone] The [employer]. [address] [place] [address]. All rights reserved. This information is not intended as a substitute for professional medical care. Always follow your healthcare professional's instructions. 12/20/2021 17:56:00 Chest Pain, Uncertain Cause Uncertain Causes of Chest Pain Chest pain can happen for a number of reasons. Sometimes the cause can't be determined. If your condition does not seem serious, and your pain does not appear to be coming from your heart, your healthcare provider may recommend watching it closely. Sometimes the signs of a serious problem take more time to appear. Many problems not related to your heart can cause chest pain. These include: Musculoskeletal. Costochondritis is an inflammation of the tissues around the ribs that can occur from trauma or overuse injuries, or a strain of the muscles of the chest wall Respiratory. Pneumonia, collapsed lung (pneumothorax), or inflammation of the lining of the chest and lungs (pleurisy) Gastrointestinal. Esophageal reflux, heartburn, ulcers, or gallbladder disease Anxiety and panic disorders Nerve compression and inflammation Rare miscellaneous problems such as aortic aneurysm (a swelling of the large artery coming out of the heart) or pulmonary embolism (a blood clot in the lungs) Home care After your visit, follow these recommendations: Rest today and avoid strenuous activity. Take any prescribed medicine as directed. Be aware of any recurrent chest pain and notice any changes Follow-up care Follow up with your healthcare provider if you do not start to feel better within 24 hours, or as advised. Call 911 Call 911 if any of these occur: A change in the type of pain: if it feels different, becomes more severe, lasts longer, or begins to spread into your shoulder, arm, neck, jaw or back Shortness of breath or increased pain with breathing Weakness, dizziness, or fainting Rapid heart beat Crushing sensation in your chest When to seek medical advice Call your healthcare provider right away if any of the following occur: Cough with dark colored sputum (phlegm) or blood Fever of 100.4 F (38 C) or higher, or as directed by your healthcare provider Swelling, pain or redness in one leg [id number] [employer]. [address] [place] [address]. All rights reserved. This information is not intended as a substitute for professional medical care. Always follow your healthcare professional's instructions. Follow Up Care 12/20/2021 16:05:28 With:YOHANA ADAMS Address: [facility] [address] [place] [phone] When:2-4 days Comments:Take Antibiotics as prescribed. Follow closely with your doctor, return if worsening chest pressure shortness of breath or other concerning symptoms. [facility] documented as of this encounter (statuses as of 08/06/2022) [facility] History of Past illness Narrative* Problem Noted Date Resolved Date Bloating 10/28/2018 03/31/2019 Post-nasal drip 10/28/2018 03/31/2019 Hair loss 10/28/2018 03/31/2019 Migraine with aura and witho ut status migrainosus, not intractable 10/28/2018 03/31/2019 Daytime sleepiness 10/28/2018 03/31/2019 Malaise and fatigue 10/28/2018 03/31/2019 Muscle spasm 10/28/2018 03/31/2019 Suspected exposure to mold 10/28/201803/31 documented as of this encounter (statuses as of 08/13/2022) [facility] No data available for this section [facility] Evaluation note* Diagnosis Kimberly's thyroiditis- Primary Chronic lymphocytic thyroiditis Malaise and fatigue Other malaise and fatigue Bloating Flatulence, eructation, and gas pain Non-restorative sleep Other sleep disturbances Lactating mother care and examination of lactating mother Nutritional deficiency Unspecified nutritional deficiency [facility] Diagnosis Kimberly's thyroiditis- Primary Chronic lymphocytic thyroiditis Malaise and fatigue Other malaise and fatigue Bloating Flatulence, eructation, and gas pain Dietary counseling and surveillance Dietary surveillance and counseling documented in this encounter [facility] Name Dates Details Instructions not documented -Reproductive Endocrinology-[facility] Work Phone: Summary Purpose Family History No Family History Records Found Mother Name Dates Details Family history of cardiac di sorder(V17.49, Z82.49) Status:Active Father Name Dates Details Family history of cardiac di sorder(V17.49, Z82.49) Status:Active Unknown Family Member Name Dates Details Family history of cardiac di sorder: Mother, Father(V17.49, Z82.49) Status:Active Unknown Family Member Name Dates Details Family history of cardiac di sorder: Mother, Father(V17.49, Z82.49) Status:Active Unknown Family Member Name Dates Details Family history of cardiac di sorder: Mother, Father(V17.49, Z82.49) Status:Active Unknown Family Member Name Dates Details Family history of cardiac di sorder: Mother, Father(V17.49, Z82.49) Status:Active Unknown Family Member Name Dates Details Family history of cardiac di sorder: Mother, Father(V17.49, Z82.49) Status:Active Unknown Family Member Name Dates Details Family history of cardiac di sorder: Mother, Father(V17.49, Z82.49) Status:Active Unknown Family Member Name Dates Details Family history of cardiac di sorder: Mother, Father(V17.49, Z82.49) Status:Active Unknown Family Member Name Dates Details Family history of cardiac di sorder: Mother, Father(V17.49, Z82.49) Status:Active Unknown Family Member Name Dates Details Family history of cardiac di sorder: Mother, Father(V17.49, Z82.49) Status:Active Advance Directives No Advanced Directives Records FoundNo Advanced Directives Records FoundNo Advanced Directives Records FoundNo Advanced Directives Records FoundNo Advanced Directives Records FoundNo Advanced Directives Records FoundNo Advanced Directives Records Found Procedure Findings Note Post Operative Note: PreOp D iagnosis: 32 year old with Retained products of conception after prior D&C Post-Procedure Diagnosis: Retained products of conception Procedure: Hysteroscopy, Removal of retained products of conception and D&C Surgeon: Dr. Dumont Resident/Fellow/Other Teacher Kindergarten: Dr. Philippe Anesthesia: General I.V. Fluids: 600 mL Estimated Blood Loss (mL): 25 mL Blood Replacement: None Specimen: yes. 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 Large amount of retained tissue from previous D&C in 05/2018 noted in mid uterine cavity. Large amount removed with Sympion resectoscope. Operative Report Dictated: Dictation: yes Dictated by: Denae Dictation job number: [id number] Signature/Cosignature/Attes (more content not included)... Chief Complaint Met with patient, reviewed checklist. LMP 216, she will schedule SIS, lab work and financial consult today w FD. She signed medical release today for PAP and will obtain from [facility]. She is aware that she will need to wean from BF before her FET cycle. All questions answered. Will send new IVF consents and FET tx plan via [employer]. Also emailed andrology re: if they still havedonor sperm here and will f/u w her. Maricarmen Mejia RN 12/06/2022 10:44SIS- pre FET Additional Source Comments INFORMATION SOURCE (unrecogn ized section and content) DATE CREATED AUTHOR AUTHOR'S ORGANIZ ATION 06/04/2019 [facility] DATE CREATED AUTHOR AUTHOR'S ORGANIZ ATION 01/15/2022 [facility] ([place]) DATE CREATED AUTHOR AUTHOR'S ORGANIZ ATION 08/14/2022 [facility] DATE CREATED AUTHOR AUTHOR'S ORGANIZ ATION 02/20/2023 [employer] DATE CREATED AUTHOR AUTHOR'S ORGANIZ ATION 06/10/2023 [facility] DATE CREATED AUTHOR AUTHOR'S ORGANIZ ATION 10/16/2023 [facility] Source Comments (unrecognize d section and content) In the event this informatio n is protected by the Federal Confidentiality of Alcohol and Drug Abuse Patient Records regulations: The Federal rules restrict any use of the information to criminally investigate or prosecute any alcohol or drug abuse patient.[facility] the event this information is protected by the Federal Confidentiality of Alcohol and Drug Abuse Patient Records regulations: The Federal rules restrict any use of the information to criminally investigate or prosecute any alcohol or drug abuse patient.[facility] Reason for Visit (unrecogniz ed section and content) Reason Comments New Patient Care Teams (unrecognized sec tion and content) Tool Drawing Checker Relationship Specialty Start Date End Date Daniel Adams MD PCP - General Family Medicine 11/10/14 FOR RECORDS PERTAINING TO PATIENTS WHO ARE OR HAVE BEEN ENROLLED IN A CHEMICAL DEPENDENCY/SUBSTANCEABUSE PROGRAM, SOME INFORMATION MAY BE OMITTED. This clinical summary was aggregated from multiple sources. Caution should be exercised in using it in the provision of clinical care. This summary normalizes information from multiple sources, and as a consequence, information in this document may materially change the coding, format and clinical context of patient data. In addition, data may be omitted in some cases. CLINICAL DECISIONS SHOULD BE BASED ON THE PRIMARY CLINICAL RECORDS. [facility]. provides no warranty or guarantee of the accuracy or completeness of information in this document.
== END | disposition home or self-care (01) ==
LOC: OPUS 12:22
PROVIDERS: PCP Family Medicine; Referring Provider Obstetrics & Gynecology; Visit Provider Obstetrics & Gynecology
DX: N93.9 Abnormal uterine and vaginal bleeding, unspecified (principal)
CPT/HCPCS: 76830; 76856

== ENCOUNTER → 2023-12-05 | Outpatient (CLI) | payer OTHER, SELFPAY ==
--- OUTSIDE RECORDS SUMMARY | 2023-12-05 09:30 | XMS RPT_ITS | CCD ---
Author Name Unknown Address [address] [place] [address] Organization [facility] Care Team Providers Care Department Secretary Name Role Phone JEAN GALLARDO Referring Unavailable Kulwinder Knutson MD Unavailable Unavailable Kathleen El MD Unavailable UnavailDaniel Granado Unavailable Unavailable Kulwinder Knutson Unavailable Unavailable ANGIE PEÑA, YOHANA Primary Care Physician Daniel Martinez MD Primary Care Provider DANIEL ADAMS Primary Care Unavailable MARGY HANDY Attending Unavailable ABRIL VALDOVINOS Attending Unavailable DANIEL ADAMS Primary Care Unavailable Daniel Adams Unavailable Unavailable Unavailable Unavailable Unavailable MD LOUIS BRADLEY Attending Susanva chitra Adams, [...] GUPTA, RADHA F Attending Unavailable RADHA GUPTA F Attending Unavailable LATOYA MAHER Referring Unavailab le NO PRIMARY CARE, Primary Care Unavailable MARGY CUETO Referring Unavailabl RUPERT Rodriguez Attending Unavailable NO PRIMARY CARE, Primary Care Unavailable MARGY CUETO Primary Care Unavailabl e MARGY CUETO Referring Unavailabl e RADHA GUPTA Attending Unavailable KATERINA MARTINEZ Attending Unavailable LATOYA MAHER Referring Unavailab le NO PRIMARY CARE, Primary Care Unavailable MARGY CUETO Primary Care Unavailabl e LATOYA MAHER Referring Unavailab JACOBY Matthews Attending Unavailable MARGY CUETO Primary Care Unavailabl e MARGY CUETO Referring Unavailabl RUPERT Rodriguez Attending Unavailable TIM RECINOS Attending Unavailable MARGY [...] Unavailable MARGY CUETO Primary Care Unavailabl e TIM RECINOS Attending Unavailable MARGY CUETO Referring Unavailabl e Allergies Allergy Classification Reported Allergen(s) Allergy Type Date of Onset Reaction(s) Facility Grains (1 source) glutenin Food Allergy MP-Reproductiv e Endocrinology- [facility] Work Phone: (9 sources) glutenin Allergy to substance (finding) FV-AQQAX-Mtghk n 320 Work Phone: (1 source) GLUTEN MEAL; Translations: [GLUTEN MEAL] Propensity to adverse reactions to drug (disorder) 0 [facility] Repository Medications Current Medications Medication Drug Class(es) [...] Date Time Vital Sign Value Performing Clinician Faci lity 12-06-2022 08:57-0500 Body height 170.18 cm Daniel Adams Work Phone: YZ-GMNVI-Fvdlcm 320 Work Phone: 12-06-2022 08:57-0500 Body mass index (BMI) [Ratio] 37.75 kg/m2 Daniel Adams Work Phone: MA-HRKZI-Dpjewo 320 Work Phone: 12-06-2022 08:57-0500 Body surface area Derived from formula 2.19 m2 Daniel Adams Work Phone: DF-BCUQT-Ixxmjl 320 Work Phone: 12-06-2022 08:57-0500 Body weight 109.32 kg Daniel Adams Work Phone: QJ-PVWKD-Jcwrdw 320 Work Phone: 12-06-2022 08:57-0500 Diastolic blood pressure 79 mm[Hg] Daniel Adams Work Phone: MT-GTASZ-Dyrxov 320 Work Phone: 12-06-2022 08:57-0500 Heart rate 88 /min Daniel Adams Work Phone: PF-JTJGY-Pzlrmk 320 Work Phone: 12-06-2022 08:57-0500 Systolic blood pressure 120 mm[Hg] Daniel Elan Angie Work Phone: UL-JAIBP-Vhviwl 320 Work Phone: 12-06-2022 08:57-0500 3 1 Daniel Elan Angie Work Phone: BF-ZFOAO-Koynoi 320 Work Phone: Encounters Encounter Date Encounter Type Care Provider Facility Start: 10-14-2023 End: 10-14-2023 ambulatory [facility] Start: 10-07-2023 End: 10-07-2023 ambulatory [facility] Start: 10-06-2023 End: 10-06-2023 ambulatory [facility] Start: 09-29-2023 End: 09-29-2023 ambulatory [facility] Start: 09-22-2023 End: 09-22-2023 [facility]ulatory [facility] Start: 09-15-2023 End: 09-15-2023 ambulatory [facility] Start: 09-01-2023 End: 09-01-2023 ambulatory [facility] Start: 08-19-2023 End: 08-19-2023 ambulatory [facility] Start: 07-28-2023 End: 07-28-2023 ambulatory [facility] Start: 07-23-2023 End: 07-23-2023 ambulatory [facility] Start: 07-23-2023 End: 07-23-2023 ambulatory [facility] Start: 07-11-2023 End: 07-11-2023 ambulatory [facility] Start: 06-10-2023 End: 06-10-2023 ambulatory RADHA MONTELONGOYDER [facility] Start: 02-28-2023 AUDIT Daniel Adams Work Phone: KC-KRFOW-Gqlizo 310 IVF Work Phone: Start: 02-18-2023 Patient encounter procedure Daniel Adams Work Phone: WZ-SBMIG-Kapggn 310 IVF Work Phone: Start: 02-18-[address] Daniel Adams Facility:[id number] Start: 02-16-2023 Chart Update Daniel Adams Work Phone: LO-POZVU-Velpqc 310 IVF Work Phone: Start: 02-13-[address] Daniel Adams Facility:[id number] Start: 02-13-2023 Patient encounter procedure Daniel Adams Work Phone: QW-EKGEN-Htwyog 310 IVF Work Phone: Start: 02-13-2023 ULTRALAB, Provider: OBGYN IVF RDMS [id number] 1,MG OBGYN, Status: Pen, Time: 7:40 AM Daniel Adams Work Phone: XN-XUFJD-Xcheju 310 IVF Work Phone: Start: 02-11-[address] Daniel Adams Facility:[id number] Start: 02-11-2023 Patient encounter procedure Daniel Adams Work Phone: PS-UYSAS-Vpqexp 310 IVF Work Phone: Start: 01-29-2023 AUDIT Daniel Adams Work Phone: PQ-EJIXS-Cfqilv 310 IVF Work Phone: Start: 01-20-2023 Chart Update Daniel Adams Work Phone: HU-MKMNT-Upcxqs 310 IVF Work Phone: Start: 12-10-2022 Patient encounter procedure Daniel Adams Work Phone: AX-OVBNE-Ohbzvm 310 IVF Work Phone: Start: 12-10-[address] Daniel Adams Facility:[id number] Start: 12-06-2022 Current tobacco non-user cad cap copd pv dm Daniel Adams Work Phone: TS-XQXOS-Yudldb 320 Work Phone: Start: 12-06-2022 ambulatory MD LOUIS BRADLEY Facility:[id number] Start: 08-13-2022 End: 08-13-[address] Work Phone: Functional Medicine Procedures Date Procedure Procedure Detail Performing Clinician Start: 12-10-2022 Antibody screen MD ROSALES BRADLEY Plan of Treatment Date Care Activity Detail Author Start: 02-11-2023 ULTRALAB, Provider: OBGYN IVF RDMS [id number] 1,MG OBGYN, Status: Pen, Time: 10:10 AM [facility], Provider: OBGYN IVF RDMS [id number] 1,MG OBGYN, Status: Pen, Time: 10:10 AM VP-UQGIA-Yxkwvo 310 IVF Work Phone: Start: 12-10-2022 ULTRASALIN, Provider: Lyssa Paulson, Status: Pen, Time: 2:30 PM ULTRASALIN, Provider: Lyssa Paulson, Status: Pen, Time: 2:30 PM EM-QFWAZ-Zpetqw 320 Work Phone: Start: 12-10-2022 ULTRASALIN, Provider: Louis Bradley, Status: Pen, Time: 2:30 PM ULTRASALIN, Provider: Louis Bradley, Status: Pen, Time: 2:30 PM LU-BMQKE-Paffkz 320 Work Phone: Start: 08-06-2022 End: 10-06-2022 CBC W Auto Differential panel - Blood CBC + DIFF Lab Routine Kimberly's thyroiditis Malaise and fatigue Bloating Non-restorative sleep Lactating mother Nutritional deficiency Expected: 08/06/2022, Expires: 10/06/2022 [facility] Work Phone: Payers Date Payer Category Payer Unknown [id number] 2021 Unknown [id number] 1984 Unknown [id number] 2.16. [id number] 1984 Unknown [id number] 2.16. 840.1.874610.3.579.2.356 1984 Unknown [id number] 2.16. 840.1.581346.3.579.2.356 1984 Unknown [id number] 2.16. 840.1.637080.3.579.2.356 1984 Unknown [id number] 2.16. 840.1.192477.3.579.2.356 1984 Unknown [id number] 2.16. 840.1.262341.3.579.2.356 1984 Unknown [id number] 2.16. 840.1.711294.3.579.247 1984 Unknown [id number] 2.16. 840.1.832262.3.579.247 1984 Unknown [id number] 2.16. 840.1.004260.3.579.247 1984 Unknown [id number] 2.16. 840.1.802794.3.579.247 1984 Unknown [id number] 2.16. 840.1.198391.3.579.247 1984 Unknown [id number] 2.16. 840.1.586762.3.579.2.47 1984 Unknown [id number] 2.16. 840.1.061194.3.579.247 1984 Unknown [id number] 2.16. 840.1.536460.3.579.247 1984 Unknown [id number] 2.16. 840.1.035142.3.579.2479 1984 Unknown [id number] 2.16. 840.1.558034.3.579.2.479 1984 Unknown [id number] 2.16. 840.1.512731.3.579.2.479 1984 Unknown [id number] 2.16. 840.1.249330.3.579.2.479 1984 Unknown [id number] 2.16. 840.1.248048.3.579.2.479 1984 Unknown [id number] 2.16. 840.1.108739.3.579.2.479 1984 Unknown [id number] 2.16. 840.1.046472.3.579.2.479 1984 Unknown [id number] 2.16. 840.1.506569.3.579.2.479 1984 Unknown [id number] 2.16. 840.1.798122.3.579.2.479 Unknown [id number] Unknown [id number] Social History Date Type Detail Facility Sex Assigned At Female [facility] Start: 01-20-2019 Tobacco smoking stat [facility] Occasional tobacco smoker [facility] Work Phone: History of tobacco use Cigarette Smoker C [facility] Work Phone: Start: 01-20-2019 Tobacco use and exposure Smokeless tobacco non-user [facility] Work Phone: Start: 06-02-2022 Alcohol intake Current drinke r of alcohol (finding) [facility] Start: 01-20-2019 Tobacco Comment Socially/ [facility] Start: 10-27-2014 [facility] Start: 1985 Sex Assigned At Not on file C [facility] Former smoker Former smoker CS-TQIQI-Bhxg an 320 Work Phone: Functional Status Date Assessment Result Facility NEGATED: Highlighted row Functional performance Functional status health issues are not documented Disease MP-Reproductive Endocrinology-[facility] n Work Phone: Mental Status Date Assessment Result Facility NEGATED: Highlighted row Cognitive function [Interpretation] Cognitive status health issues are not documented Disease [facility] Work Phone: Clinical Notes 10-28-2018 to 08-13-[address] - 08/13/2022 9:00 AM EDTPatient InstructionsAbril Valdovinos APRN.CNP - 08/06/2022 1:28 PM EDT Note Date & Type Note Facility 08-13-2022 Note HNO ID: [id number] Author: Margy Handy RD Service: ? Author Type: Registered Dietitian Type: Progress Notes Filed: 08/13/2022 9:42 AM Note Text: [facility] Nutrition Therapy: Initial Assessment (Individual) [...] OmegaGenics EPA-DHA 2400 (High Concentrate EPA/DHA liquid) (TIDAL PETROLEUMics) Take one teaspoon (5 ml) daily with [...] Protein: 0.8g/kg Nutrients of Concern: D, Mg, [place] 3, selenium, Zn Nutrition Diagnosis: Food and [...] See our phytonutrient spectrum handout. In the Eqlim Portal Create macronutrient balanced meals. For example, [...] family like garlic (more content not included)... [facility] 08-13-2022 Instructions Margy Handy, RD - 08/13/2022 9:41 AM EDT [place] [facility] FOLLOW UP NUTRITION INSTRUCTIONS We recommend scheduling your Follow-up appointment at the end of your initial appointment. Nutrition Follow-up: In 8 weeks with Functional Medicine Registered Dietitian (Iesha Golden Sarah or Margy) Preparation for Follow-up: Complete a 3 day food record using the Diet, Nutrition and Lifestyle Journal from the Functional Nutrition Portal If follow-up is virtual: scan into T[employer]ine [employer] or send to before joining your appointment [...] See our phytonutrient spectrum handout. In the Eqlim Portal Create macronutrient balanced meals. For example, [...] like garlic and onions Dark leafy greens [place]-3 fats (see #5) Berries and pomegranate seeds [...] healthy fats in the diet. Fatty Fish (Novi, Tuna, Mackarel, Delaney, Anchovies and Sardines) Seeds, [...] Standard Serving Size Average Selenium Content (mcg) [place] nuts, 1 ounce 2380 Pork, 3 ounces 265 Reeder, 3 ounces 186 Tuna (yellowfin), 3 ounces 92 Oysters (Tobias), 3 ounces 66 Clams, 3 ounces 54 Sardines, canned, 3.75 ounces 49 Halibut, 3 ounces 47 Shrimp, 3 ounces 42 Novi (wild caught), 3 ounces 31 Cod fillet (Minturn), 3 ounces 28 Beef darien roast, 3 ounces 23 Cache seed butter, 1 Tbsp 17 Egg, whole 15 Derived From: Food Sources, Selenium, IFM 2019 Resources/Educational Materials Dietary Factors Associated with Plasma Thyroid Peroxidase and Thyroglobulin Antibodies: https://www.ncbi.nlm.nih.gov/pmc /articles/XAW3231665/ 3. Utilize the Phytonutrient Spectrum Suite sent [...] Sweetener: none Fiber source: Inulin, Pricilla Sunwarrior [place] Blend Organic Pea, Hemp, Goji Sweetener: Stevia Garden [facility] Organic Plant Protein Smooth Unflavored 8.3oz (236g) [...] plant protein Pea, Mushroom Blend Sweetener: Stevia [facility] Life Pea, Pumpkin, Brown Rice Sweetener: Allulose, Stevia Fiber: Prebiotic Resistant Starch Fiber Blend Single Source -Quantico Julian Protein Powder, Unsweetened: https://www.Rolocule Games/bran d/protein -[place] Nutrition Pumpkin Seed Protein Powder: https://Salesforce Japannutrition.Agenus/produ cts/yzhyjcf-xtoeame-qfsnwd -Sprout Living Pumpkin Seed Protein Powder: https://www.Blue Water Technologies/brittanie p/bvoikew-uptk-emyjiiz-powder/ -Nutribiotic Rice Protein Powder: https://www.nutriEchoSign.com/rice -protein.html -Momo Inchi Protein Powder:https://wwwWorkFlowy /products/ovtbe-yfuda-muwbhqm-po utam-22-yutkody -PurePea by Advantagene for iPling : https://Intellicyt.Stumpwise.co m/ekeeqcv-evrv-blu-protein -Nutiva Hemp Protein: https://www.PagaTodo MobileivaKeegy/products/ qattlxl-voth-dbhu-protein -Vital Proteins Chicken Bone Broth Collagen: https://www.Mail.com Media Corporations.Agenus/pr oducts/vzlkgqf-qftm-rytth-chicke q-ojys-brgom-collagen -Sprout Living Cache Seed Protein:https://Blue Water Technologies /products/uhlahpp-wjmrljqem-ryah -xfinlys-utuoja-zaiigjchra-2 Pre-Made Plant Based Protein Shake -Orgain Plant-Based Protein Shake: https://Kidzloop.com/collections/p rotein-shakes/products/20g-plant -syjtb-javtdyw-nxcwb -Pirq Protein Shakes:https://www.My Own Crown / -Yashcelia Santiagogan Protein Shake (low sugar):https://VaporWire/prod ucts/protein-shakes/?wwg=7551 ADDITIONAL INSTRUCTIONS: How to Contact Your Functional Medicine Team (Open M-F 8am-5pm): 1. MyChart is the BEST form of communication to reach the Functional Medicine Team, see test results and request refills. Please allow 72 business hours for a response. Directions for signing up are included in your New Patient Folder. (Or you can go to [email or web address]) 2. For nutrition related questions or concerns, The New Dailyhart message your physician and include Attn: Margy Handy RD at the top of the message. Turbine [employer] messaging is meant to support implementation of [...] Supplements: Supplements can be ordered from the [facility]'s Online Store: [email or web address] New patients to the Healthy Living Shop will need to enter the provider code FUNCTIONAL to register their account. documented in this encounter [facility] 08-13-2022 History of Present illness Narrative [facility] Nutrition Therapy: Initial Assessment (Individual) [...] OmegaGenics EPA-DHA 2400 (High Concentrate EPA/DHA liquid) (Diveboard) Take one teaspoon (5 ml) daily with [...] Protein: 0.8g/kg Nutrients of Concern: D, Mg, [place] 3, selenium, Zn Nutrition Diagnosis: Food and [...] See our phytonutrient spectrum handout. In the Eqlim Portal Create macronutrient balanced meals. For example, [...] like garlic and onions Dark leafy greens [place]-3 fats (see #5) Berries and pomegranate seeds [...] healthy fats in the diet. Fatty Fish (Novi, Tuna, Mackarel, Delaney, Anchovies and Sardines) Seeds, [...] Standard Serving Size Average Selenium Content (mcg) [place] nuts, 1 ounce 2380 Pork, 3 ounces 265 Reeder, 3 ounces 186 Tuna (yellowfin), 3 ounces 92 Oysters (Tobias), 3 ounces 66 Clams, 3 ounces 54 Sardines, canned, 3.75 ounces 49 Halibut, 3 ounces 47 Shrimp, 3 ounces 42 Novi (wild caught), 3 ounces 31 Cod fillet (Minturn), 3 ounces 28 Beef darien roast, 3 ounces 23 Cache seed butter, 1 Tbsp 17 Egg, whole 15 Derived From: Food Sources, Selenium, IFM 2020 Resources/Educational Materials Dietary Factors Associated with Plasma Thyroid Peroxidase and Thyroglobulin Antibodies: https://www.ncbi.nlm.nih.gov/pmc /articles/ZQF5608904/ 3. Utilize the Phytonutrient Spectrum Suite sent [...] Sweetener: none Fiber source: Inulin, Pricilla Sunwarrior [place] Blend Organic Pea, Hemp, Goji Sweetener: Stevia Electro-Petroleum [facility] Organic Plant Protein Smooth Unflavored 8.3oz (236g) [...] Prebiotic Resistant Starch Fiber Blend Single Source -SuccessNexus.com Julian Protein Powder, Unsweetened: https://www.Rolocule Games/bran d/protein -[place] Nutrition Pumpkin Seed Protein Powder: https://omeganutrition.com/produ cts/rttomnl-yznqbgj-abqhuc -Sprout Living Pumpkin Seed Protein Powder: https://www.Blue Water Technologies/brittanie p/frxxmov-jslw-zlnlrps-powder/ -Nutribiotic Rice Protein Powder: https://www.nutriEchoSign.com/rice -protein.html -Momo Inchi Protein Powder:https://wwwWorkFlowy /products/vaswt-mcbpi-sjlaytu-po dhtq-74-wulxfok -PurePea by Wavo.me : https://Intellicyt.Stumpwise.Fashion Movement m/ofvtvmr-esjn-kzq-protein -Nutiva Hemp Protein: https://www.DreamFactory Software/products/ poctzhg-wzzx-ktik-protein -Vital Proteins Chicken Bone Broth Collagen: https://www.Lazarus Therapeutics/pr oducts/bttldaf-cxmz-asmob-chicke h-odqy-emwja-collagen -Sprout Living Cache Seed Protein:https://Blue Water Technologies /products/dexbuos-nwkaaxncj-bfce -dqypslv-eehryx-hnwhdenaly-2 Pre-Made Plant Based Protein Shake -NutshellMail Plant-Based Protein Shake: https://Kidzloop.Agenus/collections/p rotein-shakes/products/20g-plant -sfkzh-xynrasj-mvbug -Pirq Protein Shakes:https://www.Bookya.Agenus / -Owcelia Vegan Protein Shake (low sugar):https://VaporWire/prod ucts/protein-shakes/?lxy=9831 Resources/Educational Materials available in Eqlim Portal and embedded above Adherence Potential to Goals/Care Plan: Moderate Nutrition Monitoring & Evaluation: adherence to plan Criteria: Laboratory Data, MSQ, Dietary Recall Follow up: 8 weeks Time Spent with patient: 38 minutes Consult Billing Type: Initial assessment/15 minutes, 3 increment(s), 38 minutes Number of Increments: 3 (45 minutes) Referred/Supervised by: Abril Valdovinos NP Signed by: Margy Handy RD documented in this encounter [facility] 08-06-2022 Note HNO ID: [id number] Author: Abril Valdovinos APRN.RIYA Service: ? Author Type: Nurse Practitioner Type: [...] capsule by mouth once daily. Vitamin D Stephenson (Wavo.me) Take 1 capsule by mouth daily with food. One [place] (Pure Encapsulation) -- fish oil Take 2 [...] Severe depression August 06, 2022 Abril Valdovinos APRN.HAND PASTER Subjective: Goal: Update Progress, Review Testing/Labs Last [...] In Your Visi (more content not included)... [facility] 08-06-2022 Instructions Abril Valdovinos APRN.[facility] - 08/06/2022 2:00 PM EDT Plan and Lifestyle Prescription Plan/Instructions/Resources: Repeat breath testing Schedule breath test to evaluate for SIBO Lactulose breath test is available at [facility] Main campus only Please call [phone]. to schedule and receive instructions about how to prepare for the breath test Please be sure to follow instructions closely Update CFM labs - orders placed, can have labs drawn at any [facility] lab Start supplements: Britt , Magnesium glycinate, Mineral [place] and Recommendations UNATION for well researched and information [email or web address] Also read Be Fruitful: The Essential Guide to Maximizing Fertility and Giving to a Healthy Child By Africa Dozier MD Integrative Physician A thorough guide to fertility that encompasses all aspects of female well-being to help women prepare their bodies for easy conception, , and the delivery of healthy babies. Real Food for : The Science and [place] of Optimal Nutrition By Shannon Conte Follow up with nutrition and health assistant cross country coach for one on one guidance Recommend Core diet- or per RD recommendations Medications/Supplements Recommended: Medication orders placed this encounter Basic (Britt) Sig: Take 3 capsules by mouth once daily. Magnesium Glycinate 120mg (Pure Encapsulations) Sig: Take 3 capsules daily OmegaGenics EPA-DHA 2400 (High Concentrate EPA/DHA liquid) (TIDAL PETROLEUMics) Sig: Take one teaspoon (5 ml) daily with food I recommend the supplements from the [facility] Healthy Living Store Online Store as we have thoroughly evaluated the research and use only highest quality supplements. Get started by following four easy steps: Visit the following webpage: [email or web address] Create an account: Enter your first name, [...] For issues with your MRN please call [phone] Provider Code: Functional (not case sensitive) Future Plans: Follow up: Please schedule a follow up visit with the following Caregivers: Provider: 6weeks, Easement Man: 4 weeks, and Health Sourcing Intern: 4 weeks LIFESTYLE PRESCRIPTION Functional Nutrition: Per bilingual case manager Sleep: Sleep goal for most adults is [...] Health Coaching: Please consider scheduling with our [place] [facility] health coaches for a phone or virtual visit for accountability, goal setting and help with behavior exchange administrator the next 6-8 weeks to be successful with your goals. [phone]. Smart phone apps to begin a meditative [...] on your diet plan discussed with our bilingual case manager, allowing for gentle detoxification and decreasing inflammation - while we are gathering your lab results and combining those with your complete history to formulate a very personalized treatment plan. LAB results: Due to the complexity of the testing performed, we are not able to review labs via GenomOncologyt or over the phone, but please know, [...] Also make sure to schedule with the bilingual case manager (this will not happen automatically) as you did with your first visit so that she can review nutritional aspects of your treatment plan. By your 3rd visit, as things are improving, we will likely transition you to one of our very capable Certified Nurse Practitioners/Physician Assistants for further follow-up. Potential future labs: Any [facility] labs ordered take about 4 weeks to return. Do them as soon as possible so that we have the results before your next appointment. You can access them on the [employer] website and it can be beneficial if you review them prior to your next visit. [email or web address]. Read about NutrEval if this was ordered. Warmly, *Abril Valdovinos APRN.RIYA documented in this encounter [facility] 08-06-2022 History of Present illness Narrative Virtual [...] capsule by mouth once daily. Vitamin D Stephenson (Wavo.me) Take 1 capsule by mouth daily with food. One [place] (Pure Encapsulation) -- fish oil Take 2 [...] HISTORY Procedure Laterality Date CHALAZION EXCISION, SINGLE 2004 right eye KNEE SURGERY HX 2006 acl [...] 20- Severe depression August 06, 2022 Abril Valodvinos APRN.HAND PASTER Subjective: Goal: Update Progress, Review Testing/Labs Last [...] Live When Was The Last Time You [place] Well? : I Feel Good Most Of The Time But [place] Fantastic While Eating AIP Diet In August. 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 Recent Results from: 08/06/22 at 13:58 [...] Both moderately elevated Yeast markers Citramalic acid Mineral Wells 3 Index 3.6 Oxidative stress 688 glutathione L Lipid peroxide 7. 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 to schedule and receive instructions about how to prepare for the breath test Please be sure to follow instructions closely Update CFM labs - orders placed, can have labs drawn at any [facility] lab Start supplements: Brtit , Magnesium glycinate, [place] and Recommendations UNATION for well researched and information [email or web address] Also read Be Fruitful: The Essential Guide to Maximizing Fertility and Giving to a Healthy Child By Africa Dozier MD Integrative Physician A thorough guide to fertility that encompasses all aspects of female well-being to help women prepare their bodies for easy conception, , and the delivery of healthy babies. Real Food for : The Science and [place] of Optimal Nutrition By Shannon Conte Follow up with nutrition and health assistant cross country coach for one on one guidance Recommend Core diet- or per RD recommendations Medications/Supplements Recommended: Medication orders placed this encounter Basic (Britt) Sig: Take 3 capsules by mouth once daily. Magnesium Glycinate 120mg (Pure Encapsulations) Sig: Take 3 capsules daily OmegaGenics EPA-DHA 2400 (High Concentrate EPA/DHA liquid) (Metagenics) Sig: Take one teaspoon (5 ml) daily with food I recommend the supplements from the [facility] [employer] Online Store as we have thoroughly evaluated the research and use only highest quality supplements. Get started by following four easy steps: Visit the following webpage: [email or web address] Create an account: Enter your first name, [...] For issues with your MRN please call [phone] Provider Code: Functional (not case sensitive) Future Plans: Follow up: Please schedule a follow up visit with the following Caregivers: Provider: 6weeks, Easement Man: 4 weeks, and Health Sourcing Intern: 4 weeks LIFESTYLE PRESCRIPTION Functional Nutrition: Per bilingual case manager Sleep: Sleep goal for most adults is [...] Health Coaching: Please consider scheduling with our [place] [facility] health coaches for a phone or virtual visit for accountability, goal setting and help with behavior exchange administrator the next 6-8 weeks to be successful with your goals. [phone]. Smart phone apps to begin a meditative [...] on your diet plan discussed with our bilingual case manager, allowing for gentle detoxification and decreasing inflammation - while we are gathering your lab results and combining those with your complete history to formulate a very personalized treatment plan. LAB results: Due to the complexity of the testing performed, we are not able to review labs via [employer] or over the phone, but please know, [...] Also make sure to schedule with the bilingual case manager (this will not happen automatically) as you [...] appointment. You can access them on the [employer] website and it can be beneficial if you review them prior to your next visit. [email or web address]. Read about NutrEval if this was ordered. *Abril Valdovinos APRN.RIYA I spent a total of 30 minutes on the date of the service which included preparing to see the patient, [id number] patient care, completing clinical documentation, obtaining and/or reviewing separately obtained history, performing a medically appropriate examination, counseling and educating the patient/family/caregiver, and ordering medications, tests, or procedures. documented in this encounter [facility] 12-20-2021 Hospital Discharge instructions Patient Education 12/20/2021 [...] neck Chest pain not caused by coughing [id number] The [employer]. [address] [place] [address]. All rights reserved. This information is not [...] Swelling, pain or redness in one leg [id number] [employer] [place] [address]. All rights reserved. This information is not intended as a substitute for professional medical care. Always follow your healthcare professional's instructions. Follow Up Care 12/20/2021 16:05:28 With:YOHANA ADAMS Address: [facility] [address] [place] [phone]- When:2-4 days Comments:Take Antibiotics as prescribed. Follow closely with your doctor, return if worsening chest pressure shortness of breath or other concerning symptoms. [facility] documented as of this encounter (statuses as of 08/06/2022) [facility] History of Past illness Narrative* Problem Noted Date Resolved Date Bloating 10/28/2018 03/31/2019 Post-nasal drip 10/28/2018 03/31/2019 Hair loss 10/28/2018 03/31/2019 Migraine with aura and witho ut status migrainosus, not intractable 10/28/2018 03/31/2019 Daytime sleepiness 10/28/2018 03/31/2019 Malaise and fatigue 10/28/2018 03/31/2019 Muscle spasm 10/28/2018 03/31/2019 Suspected exposure to mold 10/28/201803/31 documented as of this encounter (statuses as of 08/13/2022) [facility] No data available for this section [facility] Evaluation note* Diagnosis Kimberly's thyroiditis- Primary Chronic lymphocytic thyroiditis Malaise and fatigue Other malaise and fatigue Bloating Flatulence, eructation, and gas pain Non-restorative sleep Other sleep disturbances Lactating mother care and examination of lactating mother Nutritional deficiency Unspecified nutritional deficiency documented in this encounter [facility] note* Diagnosis Kimberly's thyroiditis- Primary Chronic lymphocytic thyroiditis Malaise and fatigue Other malaise and fatigue Bloating Flatulence, eructation, and gas pain Dietary counseling and surveillance Dietary surveillance and counseling documented in this encounter [facility] Name Dates Details Instructions not documented -Reproductive Endocrinology-[facility] Work Phone: Summary Purpose Family History No [...] conception and D&C Surgeon: Dr. Dumont Resident/Fellow/Other Cdc Associate: Dr. Philippe Anesthesia: General I.V. Fluids: 600 [...] yes Dictated by: Denae Dictation job number: [id number] Signature/Cosignature/Attes (more content not included)... Chief Complaint Met with patient, reviewed checklist. LMP 2/16, she will schedule SIS, lab work and financial consult today w FD. She signed medical release today for PAP and will obtain from [facility]. She is aware that she will need to wean from BF before her FET cycle. All questions answered. Will send new IVF consents and FET tx plan via [employer]. Also emailed andrology re: if they still havedonor sperm here and will f/u w her. Maricarmen Mejia RN 12/06/2022 10:44SIS- pre FET Additional Source Comments INFORMATION SOURCE (unrecogn ized section and content) DATE CREATED AUTHOR AUTHOR'S ORGANIZ ATION 06/04/2019 [facility] DATE CREATED AUTHOR AUTHOR'S ORGANIZ ATION 01/15/2022 [facility] ([place]) DATE CREATED AUTHOR AUTHOR'S ORGANIZ ATION 08/14/[address] [facility] DATE CREATED AUTHOR AUTHOR'S ORGANIZ ATION 02/20/2023 [employer] DATE CREATED AUTHOR AUTHOR'S ORGANIZ ATION 06/10/2023 [facility] DATE CREATED AUTHOR AUTHOR'S ORGANIZ ATION 10/16/2023 [facility] Source Comments (unrecognize d section and content) In the event this informatio n is protected by the Federal Confidentiality of Alcohol and Drug Abuse Patient Records regulations: The Federal rules restrict any use of the information to criminally investigate or prosecute any alcohol or drug abuse patient.[facility] the event this information is protected by the Federal Confidentiality of Alcohol and Drug Abuse Patient Records regulations: The Federal rules restrict any use of the information to criminally investigate or prosecute any alcohol or drug abuse patient.[facility] Reason for Visit (unrecogniz ed section and content) Reason Comments New Patient Care Teams (unrecognized sec tion and content) Department Secretary Relationship Specialty Start Date End Date Daniel [...] BE BASED ON THE PRIMARY CLINICAL RECORDS. [facility] [employer] [facility]. provides no warranty or guarantee of the accuracy or completeness of information in this document.
[2023-12-05 09:43] LABS: hCG Titer Quant., Serum < 1 mIU/mL (1-3)
== END | disposition home or self-care (01) ==
LOC: LAB 08:58
PROVIDERS: PCP Family Medicine; Referring Provider Obstetrics & Gynecology; Visit Provider Obstetrics & Gynecology
DX: N93.9 Abnormal uterine and vaginal bleeding, unspecified (principal)
CPT/HCPCS: 36415; 84702

== ENCOUNTER 2024-07-25 22:23 | Emergency (ER) | payer OTHER, SELFPAY ==
[2024-07-25 22:24] VITALS: BP 145/95; PULSE 60; RESP 18; TEMP 36.4; O2SAT 97; BMI 40.6
--- NOTE | 2024-07-25 22:41 | EDS_ITS ---
HPI HPI - GI History of Present Illness Chief Complaint: Abd Pain Informant: patient Narrative Narrative: Patient with epigastric, right upper quadrant, left upper quadrant pain that started this morning, worsened tonight shortly after eating. Radiating into her right mid back, some nausea but no vomiting. No fevers, chills, confusion, jaundice. Never had this before. 2 no other abdominal surgeries in the past, currently breast-feeding a baby that is about 10 months old. 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 Advanced maternal age (AMA) in Supervision of high risk , antepartum Home Medications ?Medication ?Instructions ?Recorded ?Last Taken ?Type NK 07/25/24 Unknown History Allergy/AdvReac Type Severity Reaction Status Date / Time gluten Allergy Upset Verified 07/25/24 22:24 Stomach Family History Father Heart disease Alzheimer disease Mother Heart disease Alzheimer disease Grandmother Breast cancer Heart disease Alzheimer disease Grandfather Alzheimer disease Heart disease Surgical History ACL (anterior cruciate ligament) tear H/O dilation and curettage Social History adopted: No household members: spouse and children number of children: 4 current occupational status: employed current occupation: Mental Health Counselor pets and animals: Yes (not managing litterbox ) pets and animals: cat(s), dog(s) and turtle(s) history of recent travel: No Smoking Status: Current every day smoker tobacco type: e-cigarettes how long ago did patient quit smokin alcohol intake: former details: stopped upon substance use type: does not use diet: gluten free well-balanced diet: daily or most days caffeine: Yes Type: coffee Number of servings: 2 eating out: rarely or never during the past year weight has: increased > 10 lbs what type of physical activity do you participate in: other details: crossfit frequency: 1-2 times per week duration: 45-60 minutes/day veto/judaism: Other seatbelt use: always do you feel safe at home: Yes additional social history: oSo spouse Home Remodeling Foster parents ROS ROS ED Constitutional Constitutional ED: Denies chills or fever(s) Eyes Eyes: Denies change in vision or diplopia ENT ENT ED: Denies rhinorrhea or sore throat Cardiovascular Cardiovascular: Denies chest pain or palpitations Respiratory/Chest Respiratory/Chest: Denies cough or dyspnea Gastrointestinal Gastrointestinal: Reports abdominal pain and nausea; Denies diarrhea or vomiting Genitourinary Genitourinary ED: Denies dysuria or hematuria Musculoskeletal Musculoskeletal: Reports back pain; Denies neck pain Integumentary Denies abscess or rash Neurologic Neurologic: Denies headache(s), paresthesias or weakness Psychiatric Psychiatric: Denies anxiety or suicidal thoughts EXAM Physical Exam Const Vital Signs: 07/25/24 22:24 Temperature 97.5 F L Temperature Source Oral Pulse Rate 60 Respiratory Rate 18 Blood Pressure 145/95 H Blood Pressure Mean 111 Pulse Ox 97 Oxygen Delivery Method Room Air Positive well nourished, well developed and obese General Appearance ED: well developed and NAD Nutritional Appearance: obese HEENT Reports moist mucous membranes normocephalic and atraumatic Eyes PERRL and EOMs intact bilaterally Neck full ROM and supple Resp normal respiratory effort and clear to auscultation bilaterally Cardio regular rate, regular rhythm and no murmurs Rate: Negative for tachycardic GI non-distended GI Narrative: Tender right upper quadrant with positive Alvarez's. No other areas of abdominal tenderness. No rebound tenderness. Auscultation: normoactive bowel sounds Palpation: soft Back/Spine no CVA tenderness General Back: other FROM Extremity normal to inspection General Extremety ED: Negative for edema, pulses abnormal or tenderness General Extremity: Negative for edema or pulses abnormal Neuro oriented x3, CN's II-XII intact bilaterally, no sensory deficits noted and gait normal Sensorium / Orientation: awake and alert Motor Exam: strength 5/5 throughout Psych mental status grossly normal and thought process normal Skin no rashes or lesions noted and no wounds MDM MDM MDM Narrative Medical decision making narrative: Suspicious for biliary colic. Patient was given Zofran and Toradol which helped and her pain is gone. I reviewed her labs which are all normal including liver enzymes, lipase, white blood count. Patient presents when ultrasound is not available in the hospital so I did a bedside ultrasound with the ED screening sebastian tai, she does appear to have a single shadowing cholesterol gallstone that is close to the neck. No gallbladder wall thickening noted or pericholecystic fluid on this cursory exam. She has very mild tenderness there. She is feeling well and at this time given her labs and the fact she has not had pain all day with normal labs I think it is reasonable to have her go home. I will give her referral to surgery, low-fat diet recommendation, and reasons to return. She is comfortable with that plan. Lab Data Attestation: I reviewed the patient's lab results. Labs: Laboratory Results - last 24 hr 07/25/24 22:47 WBC 5.1 RBC 4.84 Hgb 13.6 Hct 42.4 MCV 87.6 MCH 28.1 MCHC 32.1 RDW Std Deviation 42.5 RDW Coeff of Donna 13.2 Plt Count 275 MPV 9.9 Immature Gran % (Auto) 0.200 Neut % (Auto) 48.1 Lymph % (Auto) 27.3 [place] % (Auto) 11.7 H Eos % (Auto) 11.5 H Baso % (Auto) 1.2 H Absolute Neuts (auto) 2.5 Absolute Lymphs (auto) 1.40 Nucleated RBC % 0 Sodium 141 Potassium 3.9 Chloride 108 H Carbon Dioxide 28.0 Anion Gap 6 BUN 25 H Creatinine 0.88 Estim Creat Clear Calc 110.11 Est GFR (MDRD) Af Amer 91 Est GFR (MDRD) Non-Af 76 BUN/Creatinine Ratio 28.3 H Glucose 118 H Calcium 9.4 Total Bilirubin 0.30 AST 17 ALT 26 Alkaline Phosphatase 109 Total Protein 7.7 Albumin 3.7 Globulin 4.0 Albumin/Globulin Ratio 0.9 Lipase 37 Discharge Plan Triage Chief Complaint: Abd Pain ED Provider: Korey Donovan Dx/Rx/DC Orders Clinical Impression: Biliary colic, Cholelithiasis Instructions: ED Diet, Low Fat, ED Gallstones with Biliary Colic Prescriptions: No Action NK Primary Care Provider: Daniel Dias Referrals: Marcelo Moreira MD [Med Staff - Active Staff] - As soon as possible Daniel Dias MD [Primary Care Provider] - Print Language: Danish Disposition Disposition: Home, Self Care
[2024-07-25] MEDS: Ondansetron 4 MG/2 ML Vial IV (22:48)
[2024-07-25] MEDS: Ketorolac 15 MG/ML Vial IV (22:52)
[2024-07-25 23:01] LABS: Absolute Neutrophil Count 2.5 X10^3/uL (2.0-7.7); Basophil# 0.06 X10^3/uL; Basophil% 1.2 % (0-1); Eosinophil# 0.59 X10^3/uL; Eosinophils% 11.5 % (0-5); Hematocrit 42.4 % (37-47); Hemoglobin 13.6 g/dL (12.0-15.0); Lymphocyte % 27.3 % (19-41); Mean Corp Hgb Conc 32.1 g/dL (32-36); Mean Corpuscular Hgb 28.1 pg (27.0-32.0); Mean Corpuscular Volume 87.6 fL (81-99); Mean Platelet Vol. 9.9 fl (6.2-12.0); Monocyte% 11.7 % (0-10); NRBC Flagged by Analyzer 0 % (0-5); Neutrophil # 2.47 X10^3/uL (2.7-7.7); Neutrophil % 48.1 % (47-70); Platelet Count 275 K/mm3 (150-450); RBC Distribution Width CV 13.2 % (11.6-14.6); RBC Distribution Width SD 42.5 fl (35.1-43.9); Red Blood Count 4.84 M/mm3 (4.2-5.4); White Blood Count 5.1 K/mm3 (4.4-11.0)
[2024-07-25 23:19] LABS: ALB/GLOB Ratio 0.9 RATIO (0.9-2.4); AST(SGOT) 17 U/L (15-37); Alanine Aminotransfer ALT/SGPT 26 U/L (13-56); Albumin, Serum 3.7 g/dL (3.2-5.0); Alkaline Phosphatase 109 U/L (45-117); Anion Gap 6 (5-15); BUN 25 mg/dL (7-18); BUN/Creat Ratio 28.3 RATIO (10-20); Calcium,Total 9.4 mg/dL (8.5-10.1); Chloride 108 mmol/L (98-107); Creatinine, Serum 0.88 mg/dL (0.55-1.02); EST Glomerular Filtration Rate 76 mL/min (>60); Est Glom Filt Rate - Afr Amer 91 mL/min (>60); Estimated Creatinine Clearance 110.11 ml/min; Glucose 118 mg/dL (74-106); Lipase 37 U/L (13-75); Potassium 3.9 mmol/L (3.5-5.1); Protein, Total 7.7 g/dL (6.4-8.2); Sodium Level 141 mmol/L (136-145)
[2024-07-25 23:27] VITALS: BP 126/79; PULSE 60; RESP 18; TEMP 36.6; O2SAT 95
== END 2024-07-25 23:35 | disposition home or self-care (01) ==
PROVIDERS: Emergency Provider Emergency Medicine; PCP Family Medicine; Visit Provider Emergency Medicine
DX: K80.20 Calculus of gallbladder without cholecystitis without obstruction (principal); F17.290 Nicotine dependence, other tobacco product, uncomplicated
CPT/HCPCS: 80053; 83690; 85025; 96374; 96375; 99282; A4216; J2405

== ENCOUNTER → 2025-08-02 | Outpatient (CLI) | payer OTHER, SELFPAY ==
[2025-08-02 10:32] LABS: Hematocrit 42.6 % (37-47); Hemoglobin 14.2 g/dL (12.0-15.0); Immature Granulocytes Count 0.010 X10^3/uL (0.0-0.0); Mean Corp Hgb Conc 33.3 g/dL (32-36); Mean Corpuscular Volume 86.6 fL (81-99); Mean Platelet Vol. 10.0 fl (6.2-12.0); NRBC Flagged by Analyzer 0 % (0-5); Platelet Count 294 K/mm3 (150-450); RBC Distribution Width CV 13.0 % (11.6-14.6); RBC Distribution Width SD 40.6 fl (35.1-43.9); Red Blood Count 4.92 M/mm3 (4.2-5.4); White Blood Count 5.4 K/mm3 (4.4-11.0)
[2025-08-02 11:17] LABS: AST(SGOT) 19 U/L (<=31); Alanine Aminotransfer ALT/SGPT 24 U/L (<=34); Albumin, Serum 4.2 g/dL (3.5-5.0); Alkaline Phosphatase 60 U/L (35-104); Anion Gap 10 (5-15); BUN 17 mg/dL (4-19); BUN/Creat Ratio 23.3 RATIO (10-20); Calcium,Total 9.0 mg/dL (7.6-11.0); Carbon Dioxide 23.5 mmol/L (21.0-32.0); Chloride 104 mmol/L (98-108); Cholesterol 203 mg/dL (<=200); Ferritin 63 ng/mL (22-378); Globulin 3.2 g/dL (2.2-4.2); Glucose 106 mg/dL (70-99); Low Density Lipoprotein Calc. 117 mg/dL; Potassium 4.1 mmol/L (3.3-5.1); Triglycerides 166 mg/dL; Very Low Density Lipoprotein 33 mg/dL (5-40); Vitamin B12 430 pg/mL (180-914); Vitamin D,25 Hydroxy 22.4 ng/mL (30-100); cholesterol:hdl ratio screen 3.81
[2025-08-02 11:49] LABS: Iron 82 ug/dL (50-170); Iron Binding Capacity,Total 262 ug/dL (250-450); Iron Binding Capacity,Unsat 180 ug/dL (228-428); Magnesium 2.1 mg/dL (1.5-2.2)
== END | disposition home or self-care (01) ==
PROVIDERS: PCP Nurse Practitioner Family; Referring Provider Nurse Practitioner Family; Visit Provider Nurse Practitioner Family
DX: Z13.1 Encounter for screening for diabetes mellitus (principal); Z13.220 Encounter for screening for lipoid disorders; E83.42 Hypomagnesemia; R10.11 Right upper quadrant pain; R53.83 Other fatigue
CPT/HCPCS: 36415; 80053; 80061; 82306; 82607; 82728; 83036; 83540; 83550; 83735; 84439; 84443; 85025; 86376

== ENCOUNTER → 2025-08-24 | Outpatient (CLI) | payer OTHER, SELFPAY ==
--- NOTE | 2025-08-24 10:03 | US_ITS ---
PROCEDURE: US/Abdomen Limited
== END | disposition home or self-care (01) ==
PROVIDERS: PCP Nurse Practitioner Family; Referring Provider Nurse Practitioner Family; Visit Provider Nurse Practitioner Family
DX: R10.11 Right upper quadrant pain (principal)
CPT/HCPCS: 76705